=== PATIENT | female | born 1995 | race African-American/Black ===

== ENCOUNTER 2016-12-07 05:28 | Emergency (ER) | payer OTHER ==
[2016-12-07 05:39] VITALS: BP 115/72
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
[2016-12-07] MEDS ORDERED: diPHENhydraMINE PO* 50 MG PO ONE (06:24)
[2016-12-07] MEDS ORDERED: diPHENhydraMINE PO* 50 MG ONE (06:25)
== END 2016-12-07 06:30 | disposition home or self-care (01) ==
LOC: ED 05:28
DX: R10.30 Lower abdominal pain, unspecified (principal); L29.9 Pruritus, unspecified
CPT/HCPCS: 99282; A9270-GY

== ENCOUNTER 2017-01-04 14:02 | Emergency (ER) | payer OTHER ==
[2017-01-04] MEDS ORDERED: Ondansetron INJ* 2 MG/ML VIAL IV ONE (14:33)
[2017-01-04] MEDS ORDERED: Ketorolac INJ* 30 MG/ML 1 ML VIAL IV ONE (14:33)
[2017-01-04] MEDS ORDERED: NS 0.9% 1000 ML* 1,000 ML IV ONE (14:33)
[2017-01-04 14:49] LABS: Hematocrit 36 % (35-47); Hemoglobin 11.8 g/dl (12.0-16.0); Mean Corpuscular HGB Conc 33 g/dl (31-36); Mean Corpuscular Hemoglobin 29 pg (27-31); Mean Corpuscular Volume 89 fL (80-97); Mean Platelet Volume 7 um3 (7.4-10.4); Red Blood Count 4.08 10^6/ul (4.0-5.4); Red Cell Distribution Width 14 % (10.5-15); White Blood Count 7.4 10^3/ul (3.5-10.8)
--- NOTE | 2017-01-04 14:53 | ED ---
Abdominal Pain/Female - HPI Summary HPI Summary: Patient presents with epigastric pain that began this morning without provocation. She has been nauseous for a week without vomiting, or fever. Her pain is worse after meals, and is otherwise a constant dull presence. Her pain can occasionally present in the suprapubic region, and she was actually seen by her PCP for this and an UTI was ruled out. No fever, chills, diarrhea or constipation. She has had a "soft" stool. No CP, SOB, or back pain. - History of Current Complaint Chief Complaint: EDAbdPain Stated Complaint: ABD PAIN Time Seen by Provider: 01/04/17 14:09 Hx Obtained From: Patient Hx Last Menstrual Period: [id number] ?: Yes Onset/Duration: Gradual Onset Timing: Constant - with mild increases Severity Initially: Moderate Severity Currently: Severe Location: Epigastric Radiates: No Character: Sharp, Cramping Aggravating Factor(s): Food Alleviating Factor(s): Nothing Associated Signs and Symptoms: Positive: Nausea. Negative: Fever, Blood in Stool, Urinary Symptoms, Vaginal Discharge Allergies/Adverse Reactions: Allergies Allergy/AdvReac Type Severity Reaction Status Date / Time Latex Allergy Severe Hives Verified 11/24/16 13:28 Penicillins Allergy Intermediate Rash Verified 11/24/16 13:28 Sulfamethoxazole Allergy Vomiting Verified 11/24/16 13:28 w/Trimethoprim [From Bactrim] PMH/Surg Hx/FS Hx/Imm Hx Endocrine/Hematology History: Reports: Hx Anemia - CAN'T TAKE IRON IT IRRITATES HER STOMACH Denies: Hx Diabetes, Hx Thyroid Disease Cardiovascular History: Denies: Hx Congestive Heart Failure, Hx Hypertension, Hx Pacemaker/ICD Respiratory History: Reports: Hx Asthma Denies: Hx Chronic Obstructive Pulmonary Disease (COPD) GI History: Reports: Other GI Disorders - CHRONIC ABD PAIN AND BLOOD IN STOOLS X 3 MO Denies: Hx Ulcer History: Reports: Hx Kidney Infection Denies: Hx Renal Disease Musculoskeletal History: Reports: Hx Tendonitis - KIRSTEN CARPAL TUNNEL Sensory History: Denies: Hx Contacts or Glasses, Hx Hearing Aid Opthamlomology History: Denies: Hx Contacts or Glasses Psychiatric History: Reports: Hx Depression - [place] W/O MEDS Denies: Hx Panic Disorder - Surgical History Surgery Procedure, Year, and Place: tonsillectomy. ear tubes 07/18/16 Hx Anesthesia Reactions: No - Immunization History Date of Tetanus Vaccine: Unknown Date of Influenza Vaccine: None Infectious Disease History: Denies: Hx Clostridium Difficile, Hx Hepatitis, Hx Human Immunodeficiency Virus (HIV), Hx of Known/Suspected MRSA, Hx Shingles, Hx Tuberculosis, Hx Known/ Suspected VRE, Hx Known/Suspected VRSA, History Other Infectious Disease - Family History Known Family History: Positive: None, Cardiac Disease, Hypertension, Diabetes, Other - cancer - Social History Occupation: Employed Full-time Lives: With Family Alcohol Use: None Substance Use Type: Reports: None Smoking Status (MU): Never Smoked Tobacco Have You Smoked in the Last Year: No Review of Systems Negative: Fever, Chills Negative: Chest Pain Negative: Shortness Of Breath Positive: Abdominal Pain, Nausea. Negative: Vomiting, Diarrhea Negative: no symptoms reported Positive: Myalgia. Negative: Edema Negative: Headache All Other Systems Reviewed And Are Negative: Yes Physical Exam Triage Information Reviewed: Yes Vital Signs Reviewed: Yes Appearance: Positive: Well-Appearing, Pain Distress, Obese Skin: Positive: Warm, Skin Color Reflects Adequate Perfusion, Dry, Soft Head/Face: Positive: Normal Head/Face Inspection Eyes: Positive: EOMI, [place], Conjunctiva Clear ENT: Positive: Hearing grossly normal Neck: Positive: Supple, Nontender, No Lymphadenopathy Respiratory/Lung Sounds: Positive: Clear to Auscultation, Breath Sounds Present Cardiovascular: Positive: RRR Abdomen Description: Positive: Soft. Negative: Nontender - TTP epigastric region; non-tender otherwise, Distended, Guarding Bowel Sounds: Positive: Present Musculoskeletal: Negative: Edema Left, Edema Right Neurological: Positive: Sensory/Motor Intact, Alert, Oriented to Person Place, Time, NV Bundle Intact Distally, Normal Gait Psychiatric: Positive: Affect/Mood Appropriate AVPU Assessment: Alert Diagnostics - Laboratory Result Diagrams: 01/04/17 14:34 01/04/17 14:34 Lab Statement: Any lab studies that have been ordered have been reviewed, and results considered in the medical decision making process. - Radiology No standard instances Xray Interpretation: No Acute Changes Radiology Interpretation Completed By: Radiologist Abdominal Pain Fem Course/Dx - Diagnoses Differential Diagnosis: Positive: Appendicitis, Bowel Obstruction, Constipation , Hepatitis, Pancreatitis, Renal Colic Provider Diagnoses: UTI (urinary tract infection) Discharge - Discharge Plan Condition: Stable Disposition: HOME Prescriptions: Ciprofloxacin TAB* [Cipro Tab*] 250 mg PO BID #5 tab Fluconazole [Diflucan 150 MG (NF)] 150 mg PO ONCE #1 tab Phenazopyridine TAB* [Pyridium TAB*] 100 mg PO TID #5 tab Patient Education Materials: Urinary Tract Infection in Women (ED) Referrals: Mehnaz Ortega MD [Primary Care Provider] - Additional Instructions: Please follow-up with your primary care provider in 2-3 days for evaluation and to discuss your repeat urinary tract infections. Take medications as prescribed until they are completely gone. Consume a bland diet and drink extra fluids. You can use over the counter Nexium or Zantac for acid reflux. Return to the emergency department if symptoms worsen.
--- NOTE | 2017-01-04 15:04 | RAD ---
INDICATION: Epigastric pain COMPARISON: CT July 24, 2015 TECHNIQUE: A single view of the abdomen is submitted. FINDINGS: Bones: There are no acute bony findings. Soft tissues: The soft tissues appear normal. The psoas margins are sharp. Bowel gas pattern: Normal Calcifications: There are no abnormal calcifications. Other: None IMPRESSION: NEGATIVE EXAMINATION.
[2017-01-04 15:08] LABS: ALT 24 U/L (7-52); AST 26 U/L (13-39); Albumin 4.5 g/dL (3.2-5.2); Alkaline Phosphatase 57 U/L (34-104); Amylase 65 U/L (29-103); Anion Gap 4 mmol/L (2-11); BUN/Creatinine Ratio 10.3 (8-20); Blood Urea Nitrogen 9 mg/dL (6-24); C Reactive Protein 3.84 mg/L (< 5.00); CO2 Carbon Dioxide 29 mmol/L (22-32); Calcium 9.8 mg/dL (8.6-10.3); Chloride 104 mmol/L (101-111); EGFR African American 106.8 (>60); Globulin 3.4 g/dL (2-4); Glucose 83 mg/dL (70-100); Lipase 23 U/L (11.0-82.0); Potassium 3.4 mmol/L (3.5-5.0); Sodium 137 mmol/L (133-145); Total Protein 7.9 g/dL (6.4-8.9)
[2017-01-04 15:19] VITALS: BP 106/58
[2017-01-04] MEDS ORDERED: Al Hydrox/Mg Hydrox/Simet LIQ* 30 ML UDC PO ONE (15:36)
[2017-01-04] MEDS ORDERED: Hyoscyamine TAB* 0.125 MG PO ONE (15:36)
[2017-01-04] MEDS ORDERED: Lidocaine 2% VISCOUS* 15 ML UDC PO ONE (15:36)
[2017-01-04 15:50] LABS: Urine Bacteria Absent (Absent); Urine Bilirubin Negative (Negative); Urine Glucose Negative (Negative); Urine Nitrite Negative (Negative)
[2017-01-04] MEDS ORDERED: Ciprofloxacin TAB* 250 MG PO ONE (15:53)
[2017-01-04] MEDS ORDERED: Phenazopyridine TAB* 100 MG PO ONE (15:54)
== END 2017-01-04 16:26 | disposition home or self-care (01) ==
LOC: ED 14:02
DX: N39.0 Urinary tract infection, site not specified (principal); R10.13 Epigastric pain; R11.0 Nausea; M79.1 Myalgia
CPT/HCPCS: 36415; 74000; 80053; 81003; 81015; 82150; 83605; 83690; 84702; 85025; 86140; 87086; 96374; 96375; 99282; A9270-GY; J1885; J2405

== ENCOUNTER 2017-01-21 12:28 | Emergency (ER) | payer OTHER ==
[2017-01-21 12:55] VITALS: BP 120/69
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
--- NOTE | 2017-01-21 13:41 | RAD ---
HISTORY: The femur pain, injury COMPARISONS: None VIEWS: 4, Frontal, lateral, axial, and oblique views of the left knee FINDINGS: BONE DENSITY: Normal. BONES: There is no displaced fracture. JOINTS: There is no arthropathy. There is no suprapatellar joint effusion or lipohemarthrosis. ALIGNMENT: There is no dislocation. SOFT TISSUES: Unremarkable. OTHER FINDINGS: None. IMPRESSION: NO ACUTE OSSEOUS INJURY. IF SYMPTOMS PERSIST, RECOMMEND REPEAT IMAGING.
== END 2017-01-21 14:03 | disposition home or self-care (01) ==
LOC: UCEAST 12:28
DX: S83.92XA Sprain of unspecified site of left knee, initial encounter (principal); V09.9XXA Pedestrian injured in unspecified transport accident, initial encounter; Y93.9 Activity, unspecified; Y92.9 Unspecified place or not applicable; Z88.0 Allergy status to penicillin; Z88.2 Allergy status to sulfonamides
CPT/HCPCS: 99212; G0463

== ENCOUNTER 2017-02-14 12:28 | Emergency (ER) | payer OTHER ==
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
[2017-02-14] MEDS ORDERED: Ibuprofen TAB* 800 MG PO ONE (14:06)
[2017-02-14 14:31] LABS: Hematocrit 39 % (35-47); Hemoglobin 12.6 g/dl (12.0-16.0); Mean Corpuscular HGB Conc 32 g/dl (31-36); Mean Corpuscular Hemoglobin 29 pg (27-31); Mean Corpuscular Volume 89 fL (80-97); Mean Platelet Volume 8 um3 (7.4-10.4); Red Blood Count 4.37 10^6/ul (4.0-5.4); Red Cell Distribution Width 14 % (10.5-15); White Blood Count 7.3 10^3/ul (3.5-10.8)
[2017-02-14 14:49] LABS: ALT 18 U/L (7-52); AST 21 U/L (13-39); Albumin 4.6 g/dL (3.2-5.2); Alkaline Phosphatase 51 U/L (34-104); Anion Gap 8 mmol/L (2-11); BUN/Creatinine Ratio 13.9 (8-20); Blood Urea Nitrogen 11 mg/dL (6-24); CO2 Carbon Dioxide 24 mmol/L (22-32); Chloride 105 mmol/L (101-111); EGFR African American 119.3 (>60); EGFR Non-African American 92.8 (>60); Globulin 3.5 g/dL (2-4); Glucose 86 mg/dL (70-100); Potassium 3.9 mmol/L (3.5-5.0); Sodium 137 mmol/L (133-145); Total Protein 8.1 g/dL (6.4-8.9)
[2017-02-14] MEDS ORDERED: Iohexol 300* (CONTRAST) 10 ML SDV IV ONE (15:00)
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
[2017-02-14] MEDS ORDERED: oxyCODONE/Acetamin 5/325 MG* TAB PO ONE (17:11)
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
--- NOTE | 2017-02-14 19:15 | RAD ---
INDICATION: Left knee injury. TECHNIQUE: 4 views of the left knee were obtained. FINDINGS: The bones are in normal alignment. No joint effusion or fracture is seen. Joint spaces appear maintained. IMPRESSION: NO EVIDENCE FOR FRACTURE.
[2017-02-14 20:36] VITALS: BP 128/74
== END 2017-02-14 20:33 | disposition home or self-care (01) ==
LOC: ED 12:28
DX: Z04.1 Encounter for examination and observation following transport accident (principal); R10.31 Right lower quadrant pain; M25.562 Pain in left knee; M54.2 Cervicalgia; R51 Headache
CPT/HCPCS: 36415; 70450; 71260; 72125; 72141; 74177; 80053; 84702; 85025; 99283; A9270-GY; Q9967

== ENCOUNTER 2017-03-24 14:30 | Emergency (ER) | payer MEDICAID, OTHER ==
[2017-03-24 15:16] VITALS: BP 110/81
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
== END 2017-03-24 17:30 | disposition left against medical advice (07) ==
LOC: UCEAST 14:30
DX: N73.9 Female pelvic inflammatory disease, unspecified (principal); N39.0 Urinary tract infection, site not specified; Z88.0 Allergy status to penicillin
CPT/HCPCS: 81003; 84702; 87086; 87480; 87491; 87510; 87591; 87661; 99212; G0463

== ENCOUNTER 2017-03-24 18:31 | Emergency (ER) | payer MEDICAID ==
[2017-03-24 18:44] VITALS: BP 109/61
[2017-03-24 19:34] LABS: Hematocrit 35 % (35-47); Hemoglobin 11.4 g/dl (12.0-16.0); Mean Corpuscular HGB Conc 33 g/dl (31-36); Mean Corpuscular Hemoglobin 29 pg (27-31); Mean Corpuscular Volume 89 fL (80-97); Mean Platelet Volume 8 um3 (7.4-10.4); Red Blood Count 3.94 10^6/ul (4.0-5.4); Red Cell Distribution Width 15 % (10.5-15); White Blood Count 8.4 10^3/ul (3.5-10.8)
[2017-03-24 19:49] LABS: ALT 17 U/L (7-52); AST 19 U/L (13-39); Albumin 4.1 g/dL (3.2-5.2); Alkaline Phosphatase 56 U/L (34-104); Anion Gap 6 mmol/L (2-11); BUN/Creatinine Ratio 9.4 (8-20); Blood Urea Nitrogen 8 mg/dL (6-24); CO2 Carbon Dioxide 24 mmol/L (22-32); Calcium 9.4 mg/dL (8.6-10.3); Chloride 106 mmol/L (101-111); EGFR African American 108.6 (>60); EGFR Non-African American 84.4 (>60); Glucose 96 mg/dL (70-100); Potassium 3.8 mmol/L (3.5-5.0); Sodium 136 mmol/L (133-145); Total Protein 7.1 g/dL (6.4-8.9)
[2017-03-24 20:17] LABS: Urine Bacteria Absent (Absent); Urine Bilirubin Negative (Negative); Urine Glucose Negative (Negative); Urine Nitrite Negative (Negative)
[2017-03-24] MEDS ORDERED: Ketorolac INJ* 30 MG/ML 1 ML VIAL IV PUSH ONE (20:25)
[2017-03-24] MEDS ORDERED: Ketorolac INJ* 60 MG/2 ML VIAL IM ONE ×2 (20:59)
--- NOTE | 2017-03-24 21:33 | RAD ---
Indication: Evaluate for tubo-ovarian abscess. Real-time sonography of the pelvis was performed. The uterus measures 8.7 x 3.9 x 5.0 cm. Endometrial echoes are unremarkable. The right ovary measures 2.2 x 2.9 x 2.8 cm with a complex right ovarian cyst measuring up to 2.1 cm. This likely represents a hemorrhagic cyst. The left ovary measures 2.9 x 3.6 x 2.0 cm. Doppler interrogation demonstrates flow in both ovaries. IMPRESSION: Complex ovarian cyst in the right ovary likely representing a hemorrhagic cyst measuring up to 2.1 cm.
[2017-03-24] MEDS ORDERED: cefTRIAXone VIAL(*) 1,000 MG VIAL IM ONE (21:46)
[2017-03-24] MEDS ORDERED: Azithromycin TAB* 250 MG PO ONE (21:46)
[2017-03-24] MEDS ORDERED: Lidocaine 1% INJ* 10 MG/ML 30 ML SDV ONE (22:24)
--- NOTE | 2017-03-26 08:31 | ED ---
I, Garth,[place], scribed for Star Vargas MD on 03/24/17 at 1928 . Abdominal Pain/Female - HPI Summary HPI Summary: This 22 y/o female presents to ED from Urgent Care for suprapubic pain since today AM. Pt visited Urgent Care hoping to get tested for possible and UTI, and was sent to ED to r/o PID. Pelvic exam done at [facility]. Pt had inconclusive test at Urgent Care. Pt reports constant cramping pain at suprapubic region as well as decreased appetite, nausea without vomiting, dysuria, and persistent diarrhea for the last month with 6x episodes yesterday. Pt also reports hematuria and currently following up with her urologist. She was prescribed abx by PCP at [place] about 2 weeks ago. She had an unprotected sex about 9 days ago and also expresses concern about possible . LMP was on 01/30/2017. - History of Current Complaint Chief Complaint: EDUrogenitalProblems Stated Complaint: SENT FROM [facility] Time Seen by Provider: 03/24/17 18:49 Hx Obtained From: Patient, Medical Records Hx Last Menstrual Period: 01/30/17 Onset/Duration: Gradual Onset Timing: Constant Pain Intensity: 3 Pain Scale Used: 0-10 Numeric Location: Suprapubic Radiates: No Character: Dull Aggravating Factor(s): Nothing Alleviating Factor(s): Nothing Associated Signs and Symptoms: Positive: Urinary Symptoms, Decreased Appetite, Nausea. Negative: Vomiting Allergies/Adverse Reactions: Allergies Allergy/AdvReac Type Severity Reaction Status Date / Time Latex Allergy Severe Hives Verified 11/24/16 13:28 Penicillins Allergy Intermediate Rash Verified 11/24/16 13:28 Sulfamethoxazole Allergy Vomiting Verified 11/24/16 13:28 w/Trimethoprim [From Bactrim] PMH/Surg Hx/FS Hx/Imm Hx Endocrine/Hematology History: Reports: Hx Anemia - CAN'T TAKE IRON IT IRRITATES HER STOMACH Denies: Hx Diabetes, Hx Thyroid Disease Cardiovascular History: Denies: Hx Congestive Heart Failure, Hx Hypertension, Hx Pacemaker/ICD Respiratory History: Reports: Hx Asthma Denies: Hx Chronic Obstructive Pulmonary Disease (COPD) GI History: Reports: Other GI Disorders - CHRONIC ABD PAIN AND BLOOD IN STOOLS X 3 MO Denies: Hx Ulcer History: Reports: Hx Kidney Infection Denies: Hx Renal Disease Musculoskeletal History: Reports: Hx Tendonitis - KIRSTEN CARPAL TUNNEL Sensory History: Denies: Hx Contacts or Glasses, Hx Hearing Aid Opthamlomology History: Denies: Hx Contacts or Glasses Psychiatric History: Reports: Hx Depression - [place] W/O MEDS Denies: Hx Panic Disorder - Surgical History Surgery Procedure, Year, and Place: tonsillectomy. ear tubes 07/18/16 Hx Anesthesia Reactions: No - Immunization History Date of Tetanus Vaccine: Unknown Date of Influenza Vaccine: None Infectious Disease History: No Infectious Disease History: Denies: Hx Clostridium Difficile, Hx Hepatitis, Hx Human Immunodeficiency Virus (HIV), Hx of Known/Suspected MRSA, Hx Shingles, Hx Tuberculosis, Hx Known/ Suspected VRE, Hx Known/Suspected VRSA, History Other Infectious Disease, Traveled Outside the [place] in Last 30 Days - Family History Known Family History: Positive: Cardiac Disease, Hypertension, Diabetes, Other - cancer - Social History Alcohol Use: None Substance Use Type: Reports: None Smoking Status (MU): Never Smoked Tobacco Have You Smoked in the Last Year: No Review of Systems Negative: Fever, Chills Negative: Erythema Negative: Sore Throat Negative: Chest Pain Negative: Shortness Of Breath, Cough Positive: Abdominal Pain - suprapubic pain, cramping, Nausea. Negative: Vomiting Positive: dysuria, hematuria Positive: Other - RLE knee pain. Negative: Myalgia, Edema Negative: Rash Neurological: Other - negative for dizziness All Other Systems Reviewed And Are Negative: Yes Physical Exam Vital Signs On Initial Exam: Initial Vitals Temp Pulse Resp BP Pulse Ox 98.6 F 90 16 109/61 98 03/24/17 18:41 03/24/17 18:41 03/24/17 18:41 03/24/17 18:41 03/24/17 18:41 - Khushboo Coma Scale Coma Scale Total: 15 Diagnostics - Vital Signs Vital Signs Temp Pulse Resp BP Pulse Ox 03/24/17 19:01 98.6 F 90 16 109/61 98 03/24/17 18:41 98.6 F 90 16 109/61 98 - Laboratory Result Diagrams: 03/24/17 19:26 03/24/17 19:26 Lab Statement: Any lab studies that have been ordered have been reviewed, and results considered in the medical decision making process. - Additional Comments Diagnostic Additional Comments: Transvaginal US -- Complex ovarian cyst in the right ovary likely representing a hemorrhagic cyst measuring up to 2.1 cm. Abdominal Pain Fem Course/Dx - Course Course Of Treatment: This 22 y/o female presents to ED from [facility] to r/o PID. Pt initially presented to [facility] to get STD testing and chronic RLE knee pain, and subsequently referred to ED to r/o PID. She had inconclusive test at [facility]. US transvaginal indicates complex hemorrhagic right ovarian cyst. UA indicates contamination as well as 3+ RBC, WBC, and leuk. Pt is discharged with UTI, PID, and ovarian cyst with appointment coordinator referral in next 2 days. - Diagnoses Provider Diagnoses: Right ovarian cyst, PID (pelvic inflammatory disease), UTI (urinary tract infection) Discharge - Discharge Plan Condition: Stable Disposition: HOME Prescriptions: Cephalexin CAP* [Keflex CAP*] 500 mg PO QID #40 cap Patient Education Materials: Cephalexin (By mouth), Pelvic Inflammatory Disease (ED), Ovarian Cyst (ED), Urinary Tract Infection in Women (ED) Referrals: Nixon Danielle MD [Medical Doctor] - 2 Days The documentation as recorded by the Garth mcpherson Soohyun accurately reflects the service I personally performed and the decisions made by , Star Vargas MD.
== END 2017-03-24 22:29 | disposition home or self-care (01) ==
LOC: ED 18:31
DX: N83.201 Unspecified ovarian cyst, right side (principal); N73.9 Female pelvic inflammatory disease, unspecified; N39.0 Urinary tract infection, site not specified; R10.9 Unspecified abdominal pain; R31.9 Hematuria, unspecified; R30.0 Dysuria; R11.0 Nausea
CPT/HCPCS: 36415; 76830; 80053; 81003; 81015; 84702; 85025; 86850; 86900; 86901; 96372; 96374; 99283; A9270-GY; J0696; J1885; J2001

== ENCOUNTER 2017-04-09 11:00 | Emergency (ER) | payer MEDICAID, OTHER ==
[2017-04-09 11:19] VITALS: BP 121/72
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
== END 2017-04-09 12:38 | disposition home or self-care (01) ==
LOC: UCEAST 11:00
DX: S16.1XXS Strain of muscle, fascia and tendon at neck level, sequela (principal); V49.9XXS Car occupant (driver) (passenger) injured in unspecified traffic accident, sequela; J45.909 Unspecified asthma, uncomplicated; K21.9 Gastro-esophageal reflux disease without esophagitis; F32.9 Major depressive disorder, single episode, unspecified; E66.9 Obesity, unspecified; Z88.0 Allergy status to penicillin; Z88.2 Allergy status to sulfonamides; Z91.040 Latex allergy status
CPT/HCPCS: 99213; G0463

== ENCOUNTER 2017-05-28 19:07 | Emergency (ER) | payer OTHER ==
[2017-05-28 20:35] LABS: Urine Bacteria Absent (Absent); Urine Bilirubin Negative (Negative); Urine Glucose Negative (Negative); Urine Nitrite Negative (Negative)
[2017-05-28] MEDS ORDERED: metroNIDAZOLE TAB* 250 MG PO ONE (21:05)
[2017-05-28] MEDS ORDERED: Ciprofloxacin TAB* 500 MG PO ONE (21:05)
[2017-05-28 21:25] VITALS: BP 119/74
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
--- NOTE | 2017-05-29 14:20 | PN ---
Progress Note - Progress Note Date of Service: 05/29/17 Note: urine pos for chlamydia. attempted to contact pt and number not in service. sent script for azithromycin one gram to pharmacy on file. told [facility] to send letter to pt.
== END 2017-05-28 21:24 | disposition home or self-care (01) ==
LOC: ED 19:07
DX: N39.0 Urinary tract infection, site not specified (principal); N76.0 Acute vaginitis; M54.2 Cervicalgia; M54.9 Dorsalgia, unspecified
CPT/HCPCS: 81003; 81015; 87086; 87491; 87591; 99282; A9270-GY

== ENCOUNTER 2017-06-16 15:19 | Emergency (ER) | payer OTHER ==
[2017-06-16] MEDS ORDERED: NS 0.9% 1000 ML* 1,000 ML IV ONE (16:25)
[2017-06-16 16:51] VITALS: BP 125/82
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
== END 2017-06-16 17:07 | disposition short-term general hospital (02) ==
LOC: UCEAST 15:19
DX: R10.9 Unspecified abdominal pain (principal); N93.8 Other specified abnormal uterine and vaginal bleeding
CPT/HCPCS: 96360; 99213; G0463

== ENCOUNTER 2017-06-16 17:14 | Emergency (ER) | payer OTHER ==
[2017-06-16] MEDS ORDERED: Ketorolac INJ* 30 MG/ML 1 ML VIAL IV ONE (18:05)
[2017-06-16 18:11] LABS: Urine Bacteria Absent (Absent); Urine Bilirubin Negative (Negative); Urine Glucose Negative (Negative); Urine Nitrite Negative (Negative)
[2017-06-16 18:14] LABS: Hematocrit 35 % (35-47); Hemoglobin 11.1 g/dl (12.0-16.0); Mean Corpuscular HGB Conc 31 g/dl (31-36); Mean Corpuscular Hemoglobin 29 pg (27-31); Mean Corpuscular Volume 93 fL (80-97); Mean Platelet Volume 9 um3 (7.4-10.4); Red Blood Count 3.81 10^6/ul (4.0-5.4); Red Cell Distribution Width 16 % (10.5-15); White Blood Count 7.8 10^3/ul (3.5-10.8)
[2017-06-16 18:27] LABS: ALT 15 U/L (7-52); AST 19 U/L (13-39); Albumin 4.5 g/dL (3.2-5.2); Alkaline Phosphatase 45 U/L (34-104); Anion Gap 8 mmol/L (2-11); BUN/Creatinine Ratio 10.3 (8-20); Blood Urea Nitrogen 9 mg/dL (6-24); C Reactive Protein 1.41 mg/L (< 5.00); CO2 Carbon Dioxide 23 mmol/L (22-32); Calcium 9.6 mg/dL (8.6-10.3); Chloride 106 mmol/L (101-111); EGFR African American 105.7 (>60); EGFR Non-African American 82.2 (>60); Globulin 3.2 g/dL (2-4); Glucose 79 mg/dL (70-100); Lipase 22 U/L (11.0-82.0); Potassium 3.7 mmol/L (3.5-5.0); Sodium 137 mmol/L (133-145); Total Protein 7.7 g/dL (6.4-8.9)
[2017-06-16 19:01] VITALS: BP 90/60
--- NOTE | 2017-06-16 19:35 | RAD ---
Indication: Right upper quadrant pain. Real-time sonography of the right upper quadrant was performed. The liver is normal in size. No focal lesions or intrahepatic ductal dilatation is noted. The gallbladder demonstrates no gallstones, pericholecystic fluid or wall thickening. The common duct measures 3 mm. Right kidney measures 11.2 x 6.1 x 4.5 cm with no hydronephrosis. The pancreatic head, neck and proximal body are unremarkable. IMPRESSION: No evidence of cholelithiasis or biliary duct dilatation is noted.
--- NOTE | 2017-06-16 19:50 | RAD ---
Indication: Left adnexal pain. Real-time sonography of the pelvis was performed utilizing transabdominal technique. The uterus measures 8.7 x 4.4 x 4.7 cm. Endometrial echo measures 5 mm. The right ovary measures 3.4 x 2.3 x 3.8 cm. Left ovary measures 3.5 x 2.9 x 2.8 cm. Doppler interrogation demonstrates flow in both ovaries. IMPRESSION: Unremarkable pelvic ultrasound.
--- NOTE | 2017-06-16 22:22 | ED ---
Chaka Mcclain Alok, scribed for Nicholas Hernández MD on 06/16/17 at 1815 . Abdominal Pain/Female - HPI Summary HPI Summary: 22F presents to the ED sent here from [facility] for abd pain and vaginal bleeding. Pt states that while at work today at 0130 she experienced heavy vaginal bleeding with brownish discharge soaking through her clothes and on to the floor. Pt also has been experiencing abd pain described as cramping beginning at the LLQ and transitioning now to the suprapubic area. Pt also notes abd distention. Pt notes weight loss of 20 lbs in the past 3 weeks due to lack of appetite caused by nausea after eating. Pt also states her BM have been urgent immediately after eating with diarrhea at times. Pt notes dizziness off an on for the past 3 weeks. Her LMP was on 06/01/17. pt is allergic to Penicillin and Amoxicillin. - History of Current Complaint Chief Complaint: EDAbdPain Stated Complaint: ABD PAIN-SENT FROM [facility] Time Seen by Provider: 06/16/17 17:54 Hx Obtained From: Patient Hx Last Menstrual Period: 06/01/17 ended 06/08 Onset/Duration: Lasting Hours, Still Present Timing: Constant Severity Initially: Moderate Severity Currently: Moderate Pain Intensity: 10 Pain Scale Used: 0-10 Numeric Location: Discrete At: LLQ, Suprapubic Character: Cramping Aggravating Factor(s): Food Alleviating Factor(s): Nothing Associated Signs and Symptoms: Positive: Dizzy, Decreased Appetite, Vaginal Bleeding, Nausea, Diarrhea. Negative: Fever Allergies/Adverse Reactions: Allergies Allergy/AdvReac Type Severity Reaction Status Date / Time Latex Allergy Severe Hives Verified 05/28/17 19:14 Penicillins Allergy Intermediate Rash Verified 05/28/17 19:14 Sulfamethoxazole Allergy Vomiting Verified 05/28/17 19:14 w/Trimethoprim [From Bactrim] PMH/Surg Hx/FS Hx/Imm Hx Endocrine/Hematology History: Reports: Hx Anemia - CAN'T TAKE IRON IT IRRITATES HER STOMACH Denies: Hx Diabetes, Hx Thyroid Disease Cardiovascular History: Denies: Hx Congestive Heart Failure, Hx Hypertension, Hx Pacemaker/ICD Respiratory History: Reports: Hx Asthma Denies: Hx Chronic Obstructive Pulmonary Disease (COPD) GI History: Reports: Other GI Disorders - CHRONIC ABD PAIN AND BLOOD IN STOOLS X 3 MO Denies: Hx Ulcer History: Reports: Hx Kidney Infection Denies: Hx Renal Disease Musculoskeletal History: Reports: Hx Tendonitis - KIRSTEN CARPAL TUNNEL Sensory History: Denies: Hx Contacts or Glasses, Hx Hearing Aid Opthamlomology History: Denies: Hx Contacts or Glasses Psychiatric History: Reports: Hx Depression - [place] W/O MEDS Denies: Hx Panic Disorder - Surgical History Surgery Procedure, Year, and Place: tonsillectomy. ear tubes 07/18/16 Hx Anesthesia Reactions: No - Immunization History Date of Tetanus Vaccine: Unknown Date of Influenza Vaccine: None Infectious Disease History: No Infectious Disease History: Denies: Hx Clostridium Difficile, Hx Hepatitis, Hx Human Immunodeficiency Virus (HIV), Hx of Known/Suspected MRSA, Hx Shingles, Hx Tuberculosis, Hx Known/ Suspected VRE, Hx Known/Suspected VRSA, History Other Infectious Disease, Traveled Outside the in Last 30 Days - Family History Known Family History: Positive: Cardiac Disease, Hypertension, Diabetes, Other - cancer - Social History Occupation: Employed Full-time Alcohol Use: None Substance Use Type: Reports: None Smoking Status (MU): Never Smoked Tobacco Have You Smoked in the Last Year: No Review of Systems Negative: Fever Positive: Abdominal Pain, Diarrhea, Nausea, Other - Lack of appetite Neurological: Other - Dizziness All Other Systems Reviewed And Are Negative: Yes Physical Exam Triage Information Reviewed: Yes Vital Signs On Initial Exam: Initial Vitals Temp Pulse Resp BP Pulse Ox 98.1 F 80 16 122/61 100 06/16/17 17:44 06/16/17 17:44 06/16/17 17:44 06/16/17 17:44 06/16/17 17:44 Vital Signs Reviewed: Yes Appearance: Positive: Well-Appearing, No Pain Distress Skin: Positive: Warm, Skin Color Reflects Adequate Perfusion, Dry Head/Face: Positive: Normal Head/Face Inspection Eyes: Positive: Normal ENT: Positive: Normal ENT inspection Neck: Positive: Supple, Nontender Respiratory/Lung Sounds: Positive: Clear to Auscultation, Breath Sounds Present Cardiovascular: Positive: RRR Abdomen Description: Positive: Other: - Right upper quadrant tenderness Bowel Sounds: Positive: Present Musculoskeletal: Positive: Normal Neurological: Positive: Normal Psychiatric: Positive: Normal, Affect/Mood Appropriate Diagnostics - Vital Signs Vital Signs Temp Pulse Resp BP Pulse Ox 06/16/17 17:44 98.1 F 80 16 122/61 100 - Laboratory Lab Results: Lab Results 06/16/17 06/16/17 06/16/17 Range/Units 16:40 16:40 16:40 WBC 7.8 (3.5-10.8) 10^3/ul RBC 3.81 L (4.0-5.4) 10^6/ul Hgb 11.1 L (12.0-16.0) g/dl Hct 35 (35-47) % MCV 93 (80-97) fL MCH 29 (27-31) pg MCHC 31 (31-36) g/dl RDW 16 H (10.5-15) % Plt Count 272 (150-450) 10^3/ul MPV 9 (7.4-10.4) um3 Neut % (Auto) 44.7 (38-83) % Lymph % (Auto) 46.8 (25-47) % [place] % (Auto) 6.3 (1-9) % Eos % (Auto) 1.5 (0-6) % Baso % (Auto) 0.7 (0-2) % Absolute Neuts (auto) 3.5 (1.5-7.7) 10^3/ul Absolute Lymphs (auto) 3.6 (1.0-4.8) 10^3/ul Absolute Monos (auto) 0.5 (0-0.8) 10^3/ul Absolute Eos (auto) 0.1 (0-0.6) 10^3/ul Absolute Basos (auto) 0.1 (0-0.2) 10^3/ul Absolute Nucleated RBC 0.01 10^3/ul Nucleated RBC % 0.1 Sodium 137 (133-145) mmol/L Potassium 3.7 (3.5-5.0) mmol/L Chloride 106 (101-111) mmol/L Carbon Dioxide 23 (22-32) mmol/L Anion Gap 8 (2-11) mmol/L BUN 9 (6-24) mg/dL Creatinine 0.87 (0.51-0.95) mg/dL Est GFR ( Amer) 105.7 (>60) Est GFR (Non-Af Amer) 82.2 (>60) BUN/Creatinine Ratio 10.3 (8-20) Glucose 79 (70-100) mg/dL Lactic Acid (0.5-2.0) mmol/L Calcium 9.6 (8.6-10.3) mg/dL Total Bilirubin 0.30 (0.2-1.0) mg/dL AST 19 (13-39) U/L ALT 15 (7-52) U/L Alkaline Phosphatase 45 (34-104) U/L C-Reactive Protein 1.41 (< 5.00) mg/L Total Protein 7.7 (6.4-8.9) g/dL Albumin 4.5 (3.2-5.2) g/dL Globulin 3.2 (2-4) g/dL Albumin/Globulin Ratio 1.4 (1-3) Lipase 22 (11.0-82.0) U/L Beta HCG, Quant < 0.60 mIU/mL Urine Color Yellow Urine Appearance Clear Urine pH 6.0 (5-9) Ur Specific [place] 1.017 (1.010-1.030) Urine Protein Negative (Negative) Urine Ketones Negative (Negative) Urine Blood 1+ H (Negative) Urine Nitrate Negative (Negative) Urine Bilirubin Negative (Negative) Urine Urobilinogen Negative (Negative) Ur Leukocyte Esterase Negative (Negative) Urine WBC (Auto) Trace(0-5/hpf) (Absent) Urine RBC (Auto) Trace(0-2/hpf) (Absent) Ur Squamous Epith Cells Present H (Absent) Urine Bacteria Absent (Absent) Urine Glucose Negative (Negative) 06/16/17 Range/Units 16:40 WBC (3.5-10.8) 10^3/ul RBC (4.0-5.4) 10^6/ul Hgb (12.0-16.0) g/dl Hct (35-47) % MCV (80-97) fL MCH (27-31) pg MCHC (31-36) g/dl RDW (10.5-15) % Plt Count (150-450) 10^3/ul MPV (7.4-10.4) um3 Neut % (Auto) (38-83) % Lymph % (Auto) (25-47) % [place] % (Auto) (1-9) % Eos % (Auto) (0-6) % Baso % (Auto) (0-2) % Absolute Neuts (auto) (1.5-7.7) 10^3/ul Absolute Lymphs (auto) (1.0-4.8) 10^3/ul Absolute Monos (auto) (0-0.8) 10^3/ul Absolute Eos (auto) (0-0.6) 10^3/ul Absolute Basos (auto) (0-0.2) 10^3/ul Absolute Nucleated RBC 10^3/ul Nucleated RBC % Sodium (133-145) mmol/L Potassium (3.5-5.0) mmol/L Chloride (101-111) mmol/L Carbon Dioxide (22-32) mmol/L Anion Gap (2-11) mmol/L BUN (6-24) mg/dL Creatinine (0.51-0.95) mg/dL Est GFR ( Amer) (>60) Est GFR (Non-Af Amer) (>60) BUN/Creatinine Ratio (8-20) Glucose (70-100) mg/dL Lactic Acid 0.7 (0.5-2.0) mmol/L Calcium (8.6-10.3) mg/dL Total Bilirubin (0.2-1.0) mg/dL AST (13-39) U/L ALT (7-52) U/L Alkaline Phosphatase (34-104) U/L C-Reactive Protein (< 5.00) mg/L Total Protein (6.4-8.9) g/dL Albumin (3.2-5.2) g/dL Globulin (2-4) g/dL Albumin/Globulin Ratio (1-3) Lipase (11.0-82.0) U/L Beta HCG, Quant mIU/mL Urine Color Urine Appearance Urine pH (5-9) Ur Specific [place] (1.010-1.030) Urine Protein (Negative) Urine Ketones (Negative) Urine Blood (Negative) Urine Nitrate (Negative) Urine Bilirubin (Negative) Urine Urobilinogen (Negative) Ur Leukocyte Esterase (Negative) Urine WBC (Auto) (Absent) Urine RBC (Auto) (Absent) Ur Squamous Epith Cells (Absent) Urine Bacteria (Absent) Urine Glucose (Negative) Result Diagrams: 06/16/17 16:40 06/16/17 16:40 Lab Statement: Any lab studies that have been ordered have been reviewed, and results considered in the medical decision making process. - Additional Comments Diagnostic Additional Comments: Gallbladder US - IMPRESSION: No evidence of cholelithiasis or biliary duct dilatation is noted. Pelvis US - IMPRESSION: Unremarkable pelvic ultrasound. Abdominal Pain Fem Course/Dx - Course Course Of Treatment: Ms. Squires presented with the acute onset of LLQ abd pain and vaginal bleeding today. She has had a recent weight loss secondary to nausea. An U/S of her GB and pelvis was negative and her labs were normal. She left without announcing her intention while CT's were being read. - Diagnoses Provider Diagnoses: Abdominal pain, Vaginal bleeding Discharge - Discharge Plan Condition: Stable Disposition: HOME Referrals: No Primary Care Phys,NOPCP [Primary Care Provider] - The documentation as recorded by the Chaka mcpherson Alok accurately reflects the service I personally performed and the decisions made by me, Nicholas Hernández MD.
== END 2017-06-16 20:45 | disposition home or self-care (01) ==
LOC: ED 17:14
DX: R10.32 Left lower quadrant pain (principal); N93.9 Abnormal uterine and vaginal bleeding, unspecified; R42 Dizziness and giddiness; R19.7 Diarrhea, unspecified
CPT/HCPCS: 36415; 76705; 76856; 80053; 81003; 81015; 83605; 83690; 84702; 85025; 86140; 96374; 99282; J1885

== ENCOUNTER 2017-07-17 08:07 | Emergency (ER) | payer OTHER ==
--- NOTE | 2017-07-17 09:24 | UC ---
Complaint Female HPI - HPI Summary HPI Summary: 2 DAYS OF VAGINAL IRRITATION AND ITCHING, HAS FLANK PAIN AND OVERALL MALAISE. NO FEVER. HAS HAD A COUPLE OF WEEKS OF MILKY WHITE VAGINAL DISCHARGE. [facility] AND WAS DIAGNOSED WITH VAGINAL GROUP B STREP AND PUT ON CEFUROXIME. TOOK IT TWICE DAILY FOR 5 DAYS. HAS ALSO BEEN USING METROGEL FOR 2 WEEKS. STATES IT IS NOT HELPING HER SX. NO FEVER. HAD UNPROTECTED SEX 2 MONTHS AGO AND AGAIN 4 DAYS AGO. TX FOR CHLAMYDIA IN JUNE WITH LUDWIG Braswell. - History Of Current Complaint Chief Complaint: UCGU Stated Complaint: URINARY ISSUE Time Seen by Provider: 07/17/17 09:06 Hx Obtained From: Patient Hx Last Menstrual Period: 07/11/17 Onset/Duration: Gradual Onset, Lasting Days, Still Present Timing: Constant Severity Initially: Moderate Severity Currently: Moderate Pain Intensity: 9 Pain Scale Used: 0-10 Numeric Aggravating Factor(s): [place], Urination Alleviating Factor(s): Nothing Associated Signs And Symptoms: Positive: Back Pain, Vaginal Discharge. Negative : Fever, Nausea, Vomiting(# Of Episodes =) - Allergies/Home Medications Allergies/Adverse Reactions: Allergies Allergy/AdvReac Type Severity Reaction Status Date / Time Latex Allergy Severe Hives Verified 07/17/17 08:18 Penicillins Allergy Intermediate Rash Verified 07/17/17 08:18 Sulfamethoxazole Allergy Vomiting Verified 07/17/17 08:18 w/Trimethoprim [From Bactrim] PMH/Surg Hx/FS Hx/Imm Hx Respiratory History: Asthma - Surgical History Surgical History: Yes Surgery Procedure, Year, and Place: tonsillectomy. ear tubes 07/18/16 - Family History Known Family History: Positive: Cardiac Disease, Hypertension, Diabetes, Other - cancer - Social History Alcohol Use: None Substance Use Type: None Smoking Status (MU): Never Smoked Tobacco Have You Smoked in the Last Year: No - Immunization History Vaccination Up to Date: Yes Review of Systems Constitutional: Negative Respiratory: Negative Cardiovascular: Negative Gastrointestinal: Abdominal Pain Genitourinary: Dysuria, Frequency, Urgency All Other Systems Reviewed And Are Negative: Yes Physical Exam Triage Information Reviewed: Yes Appearance: Well-Appearing, No Pain Distress, Well-Nourished Vital Signs: Initial Vital Signs Temp 98.3 F 07/17/17 08:19 Pulse 86 08/16/17 08:19 Resp 18 07/17/17 08:19 BP 104/67 07/17/17 08:19 Pulse Ox 100 07/17/17 08:19 Vital Signs Reviewed: Yes Eyes: Positive: Conjunctiva Clear ENT: Positive: Hearing grossly normal Neck: Positive: Supple Respiratory: Positive: No respiratory distress, No accessory muscle use Cardiovascular: Positive: Pulses Normal Abdomen Description: Positive: Soft, CVA Tenderness (R), CVA Tenderness (L), Other: - TENDER SUPRAPUBIC. Negative: Distended, Guarding Musculoskeletal: Positive: No Edema Neurological: Positive: Alert Psychological: Positive: Age Appropriate Behavior Skin: Negative: rashes Diagnostics - Laboratory Diagnostic Studies Completed/Ordered: URINE DIP SP. GR. 1.015, 1+ LEUKS. URINE HCG NEGATIVE Complaint Female Dx - Course Course Of Treatment: PT DECLINES EMPIRIC TX FOR GC/CHLAMYDIA TODAY. PREFERS TO WAIT FOR RESULTS. ADVISED NO SEX UNTIL SX RESOLVED AND RESULTS AVAILABLE. WILL TX FOR POSSIBLE UTI. PT DECLINES HIV, SYPHILIS TESTING. ADVISED TO F/U WITH OB/ CLASSIFIER TENDER. - Differential Dx/Diagnosis Provider Diagnoses: VAGINITIS, DYSURIA Discharge - Discharge Plan Condition: Stable Disposition: HOME Prescriptions: Ciprofloxacin TAB* [Cipro 500 MG TAB*] 500 mg PO BID #10 tab Patient Education Materials: Vaginitis (ED), Dysuria (ED) Referrals: [facility] [Provider Group] - As Soon As Possible Giovani Mcqueen MD [Primary Care Provider] - If Needed Additional Instructions: SWABS TAKEN FOR VAGINITIS AND GC/CHLAMYDIA. WILL TREAT EMPIRICALLY FOR UTI WITH CIPRO. NO SEX UNTIL SYMPTOMS ARE RESOLVED. FOLLOW-UP WITH [facility] IF YOU DO NOT IMPROVE.
[2017-07-17 10:01] VITALS: BP 105/55
--- NOTE | 2017-07-18 22:06 | UC ---
Progress - Progress Note Progress Note: please call this pt and let her know that test for trichomonas is positive. she will need to start flagyl 250 mg tid x7 days sent. pt will need to have her partner recieve treatment as well. [facility] also let pt know that urine cx was negative. she can stop cipro. <Jeny Schumacher - Last Filed: 07/18/17 21:55> - Progress Note Progress Note: PT IS CURRENTLY IN [facility]. [facility] [place] ERX SENT. - PATTIE BLISS MD <Pattie Bliss - Last Filed: 07/19/17 15:27>
== END 2017-07-17 10:47 | disposition home or self-care (01) ==
LOC: UCEAST 08:07
DX: N76.0 Acute vaginitis (principal); R30.0 Dysuria; J45.909 Unspecified asthma, uncomplicated; Z88.0 Allergy status to penicillin; Z88.2 Allergy status to sulfonamides
CPT/HCPCS: 81003; 84702; 87086; 87480; 87491; 87510; 87591; 87661; 99212; G0463

== ENCOUNTER 2017-07-30 08:05 | Emergency (ER) | payer OTHER ==
[2017-07-30 08:24] VITALS: BP 100/59
--- NOTE | 2017-07-30 09:58 | UC ---
Jah Mcclain Angela, [facility] on 07/30/17 at 0911 . General HPI - HPI Summary HPI Summary: In Room Note: This pt is a 22 y/o female presenting to [facility] c/o dysuria, bladder pressure, and lower back pain x3 weeks. She notes she has had increased fatigue. Pt states having itchy brown "cottage cheese" vaginal discharge. Pt reports she always has vaginal discharge after taking antibiotics. Pt denies fever, SOB, chest pain, sore throat, ear pain. She notes only taking 4 doses of Flagyl for a positive Trichomonas as she forgot to take them. Pt is concerned for a yeast infection. She has an upcoming appointment on August 07 with an obgyn for an ovarian cyst. PMHx: anemia, yeast infection. LNMP: July 09, earlier than usual (usually is on the of every month). Pt has 1 daughter. MDs Note: Vital signs are stable, afebrile. Pt was positive for Trichomonas and was incomplete in her compliance of her Flagyl. Pt has multiple visits for vaginitis and is allergic to penicillin and Bactrim. Nurses Note: Pt states that she was seen 2 weeks ago and tested positive for Trichamonas and possible UTI. Pt states she thinks she has a yeast infection. PT states that she feels that she is . Pt states she has nausea and swollen breasts and increased fatigue since approx 07/22/17. Pt states she had unprotected sex on 07/20/17. PT also complains of low back pain that has persisted since last visit (07/17/17). Pt states she only took approx 4 doses of Flagyl she was prescribed. Pt also complains of RLQ pain intermitently since last visit. - History of Current Complaint Chief Complaint: UCGeneralIllness Stated Complaint: URINARY ISSUE Time Seen by Provider: 07/30/17 08:33 Hx Obtained From: Patient Hx Last Menstrual Period: 07/09/17 Onset/Duration: Gradual Onset, Still Present Associated Signs & Symptoms: Positive: Back Pain, Dysuria. Negative: Chest Pain , Fever - Allergy/Home Medications Allergies/Adverse Reactions: Allergies Allergy/AdvReac Type Severity Reaction Status Date / Time Latex Allergy Severe Hives Verified 07/30/17 08:24 Penicillins Allergy Intermediate Rash Verified 07/30/17 08:24 Sulfamethoxazole Allergy Vomiting Verified 07/30/17 08:24 w/Trimethoprim [From Bactrim] PMH/Surg Hx/FS Hx/Imm Hx - Additional Past Medical History Additional PMH: PMHx: anemia, yeast infections. Other Cardiovascular History: DENIES: HTN Respiratory History: Asthma - Surgical History Surgical History: Yes Surgery Procedure, Year, and Place: tonsillectomy. 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 Alcohol Use: None Substance Use Type: None Smoking Status (MU): Never Smoked Tobacco Have You Smoked in the Last Year: No - Immunization History Vaccination Up to Date: Yes Review of Systems Constitutional: Fatigue Skin: Negative Eyes: Negative ENT: Negative Respiratory: Negative Cardiovascular: Negative Genitourinary: Dysuria, Other - POSITIVE: vaginal discharge Motor: Negative Neurovascular: Negative Musculoskeletal: Other: - low back pain Neurological: Negative Psychological: Negative All Other Systems Reviewed And Are Negative: Yes Physical Exam Triage Information Reviewed: Yes Appearance: Well-Appearing, No Pain Distress, Well-Nourished Vital Signs: Initial Vital Signs Temp 98.2 F 07/30/17 08:16 Pulse 82 07/30/17 08:16 Resp 18 07/30/17 08:16 BP 100/59 07/30/17 08:16 Pulse Ox 100 07/30/17 08:16 ENT: Positive: Hearing grossly normal, Pharynx normal, TMs normal, Other: - TUBE IN RIGHT EAR, LOOKS PATENT. OTHERWISE NORMAL.. Negative: Muffled/hoarse voice Neck: Positive: Supple, No Lymphadenopathy Respiratory: Positive: Chest non-tender, Lungs clear, Normal breath sounds, No respiratory distress Cardiovascular: Positive: RRR, No Murmur Abdomen Description: Positive: Nontender, Soft Musculoskeletal: Positive: Strength Intact Neurological: Positive: Alert Psychological: Positive: Age Appropriate Behavior Skin: Negative: rashes - Additional Comments ON PELVIC EXAM, PT HAS WHITE DISCHARGE. NO FLANK PAIN. Course/Dx - Course Course Of Treatment: Medications have been included in the original chart and reviewed. UA shows 1+ urine protein, 1+ urine ketones, trace-intact of urine blood, 1+ Bilirubin, 1+ of U Leukocyte Esteras. Pt is not . On pelvic exam, PT HAD WHITE DISCHARGE. On exam, PT HAS NO FLANK PAIN. Normal BP reading and no follow-up instructions required. Patient has been given an antibiotic because of increased consistent with health history. The risks and benefits of antibiotic treatment have been discussed and patient has voiced understanding of these risks including the possibility of developing clostridium difficile enterocolitis. MDM: Pt with a complex PMHx comes in c/o bilateral low back pain and urinary tract symptoms for 3 weeks. Although her UA was equivocal, Im assuming she has a cystitis and possibly early pyelonephritis and well start her on Cipro. She was also noncompliant on Flagyl for a documented Trichomonas. Her pelvic examination showed a white discharge and she was tested for GC/ chlamydia, Trichomonas and simone. I will start her on vaginal suppository for simone and wait for the results for further treatment. An underlying problem is hemorrhagic cyst, her abd exam does not shows perineal signs and she has a shifting areas of pain. I could not elicit a consistent RLQ pain that would suggest appendicitis. However, I advised the pt if she has increased abd pain and RLQ pain she should go to the emergency department. Finally, she is complaining of fatigue and has stated a history of anemia, I caroline a CBC and CMP. We will follow up on that. The pt will also call Tricia Mracos to establish a new PCP. She has an OBGYN appointment in August. - Differential Dx - Multi-Symptom Provider Diagnoses: 1. Abdominal discomfort, unclear etiology, possibly early pyelonephritis. 2. Vaginal discharge; probable Simone. 3. Fatigue Discharge - Discharge Plan Condition: Stable Disposition: HOME Prescriptions: Ciprofloxacin TAB* [Cipro Tab*] 500 mg PO BID #20 tab Miconazole VAG.SUPP* [Monistat7*] 100 mg VAGINAL BEDTIME #7 vag.supp Patient Education Materials: Kidney Infection (ED), Abdominal Pain (ED), Fatigue (ED) Forms: *Work Release Referrals: Giovani Mcqueen MD [Primary Care Provider] - [facility] [place] [facility]ERR[facility] [Outside] Additional Instructions: WE DISCUSSED: You have a number of problems. You have been started on vaginal suppository for 7 days for your possible yeast infection. You have been tested for trich and other possible infections. Let's wait for those results for further treatment. Because of your bladder symptoms and low back pain, I'm starting you on an antibiotic to prevent kidney infection. This will need follow up. You will have your blood tested to evaluate your fatigue. Call Tricia Marcos at the hospital for new primary care. Return to work tomorrow. GO TO ED FOR ANY INCREASED ABDOMINAL PAIN OR IF PAIN CONTINUES MORE THAN 2 MORE DAYS. FOLLOW UP WITH OB-[facility] SEAT JOINER, as planned. The documentation as recorded by the Jah mcpherson Angela accurately reflects the service I personally performed and the decisions made by me, Misha Doherty MD.
[2017-07-30 12:52] LABS: Hematocrit 37 % (35-47); Hemoglobin 11.7 g/dl (12.0-16.0); Mean Corpuscular HGB Conc 32 g/dl (31-36); Mean Corpuscular Hemoglobin 29 pg (27-31); Mean Corpuscular Volume 91 fL (80-97); Mean Platelet Volume 8 um3 (7.4-10.4); Red Blood Count 4.05 10^6/ul (4.0-5.4); Red Cell Distribution Width 16 % (10.5-15); White Blood Count 6.8 10^3/ul (3.5-10.8)
[2017-07-30 14:28] LABS: Albumin 4.3 g/dL (3.2-5.2); Calcium 9.9 mg/dL (8.6-10.3); EGFR African American 113.2 (>60); Globulin 2.8 g/dL (2-4); Potassium 4.2 mmol/L (3.5-5.0); Total Bilirubin 0.5 mg/dL (0.2-1.0); Total Protein 7.1 g/dL (6.4-8.9)
--- NOTE | 2017-07-31 06:54 | UC ---
Progress - Progress Note Progress Note: July Lab results reviewed, please call patient with information and instructions: 1. White count and no fever suggests this is not an early kidney infection. STOP THE CIPRO. 2. Ana positive: CONTINUE VAGINAL SUPPOSITORY FOR A WEEK. 3. Anemia, mild: BEGIN A DAILY VITAMIN. 4. Fatigue: may be related to anemia. 5. COME IN TO [facility], TOMORROW AT 7 AM TO DISCUSS THESE RESULTS WITH ME, AND I WILL EXAMINE YOU AGAIN AND GIVE YOU ANOTHER ANTIBIOTIC FOR POSSIBLE CYSTITIS ( BLADDER INFECTION). I WILL ALSO ORDER TWO MORE LAB TESTS TOMORROW TO HELP WITH YOUR DIAGNOSIS: TSH AND SERUM b HCG. JENNIFER WONG MD
--- NOTE | 2017-07-31 17:29 | ED ---
Progress - Progress Note Progress Note: July Lab results reviewed, please call patient with information and instructions: 1. White count and no fever suggests this is not an early kidney infection. STOP THE CIPRO. 2. Simone positive: CONTINUE VAGINAL SUPPOSITORY FOR A WEEK. 3. Anemia, mild: BEGIN A DAILY VITAMIN. 4. Fatigue: may be related to anemia. 5. COME IN TO [facility] AT [facility], TOMORROW AT 7 AM TO DISCUSS THESE RESULTS WITH ME, AND I WILL EXAMINE YOU AGAIN AND GIVE YOU ANOTHER ANTIBIOTIC FOR POSSIBLE CYSTITIS ( BLADDER INFECTION). I WILL ALSO ORDER TWO MORE LAB TESTS TOMORROW TO HELP WITH YOUR DIAGNOSIS: TSH AND SERUM b HCG. JENNIFER WONG MD 07/31/17 G/C/TRICH/UCX (-). IF WORSE ER. Course/Dx - Course Course Of Treatment: Medications have been included in the original chart and reviewed. UA shows 1+ urine protein, 1+ urine ketones, trace-intact of urine blood, 1+ Bilirubin, 1+ of U Leukocyte Esteras. Pt is not . On pelvic exam, PT HAD WHITE DISCHARGE. On exam, PT HAS NO FLANK PAIN. Normal BP reading and no follow-up instructions required. Patient has been given an antibiotic because of increased consistent with health history. The risks and benefits of antibiotic treatment have been discussed and patient has voiced understanding of these risks including the possibility of developing clostridium difficile enterocolitis. MDM: Pt with a complex PMHx comes in c/o bilateral low back pain and urinary tract symptoms for 3 weeks. Although her UA was equivocal, Im assuming she has a cystitis and possibly early pyelonephritis and well start her on Cipro. She was also noncompliant on Flagyl for a documented Trichomonas. Her pelvic examination showed a white discharge and she was tested for GC/ chlamydia, Trichomonas and simone. I will start her on vaginal suppository for simone and wait for the results for further treatment. An underlying problem is hemorrhagic cyst, her abd exam does not shows perineal signs and she has a shifting areas of pain. I could not elicit a consistent RLQ pain that would suggest appendicitis. However, I advised the pt if she has increased abd pain and RLQ pain she should go to the emergency department. Finally, she is complaining of fatigue and has stated a history of anemia, I caroline a CBC and CMP. We will follow up on that. The pt will also call Tricia Marcos to establish a new PCP. She has an OBGYN appointment in August. - Diagnoses Provider Diagnoses: STD (female)
== END 2017-07-30 10:08 | disposition home or self-care (01) ==
LOC: UCEAST 08:05
DX: R10.30 Lower abdominal pain, unspecified (principal); N89.8 Other specified noninflammatory disorders of vagina; R53.83 Other fatigue; M54.5 Low back pain; Z32.02 Encounter for pregnancy test, result negative; Z88.0 Allergy status to penicillin; Z88.2 Allergy status to sulfonamides; Z91.040 Latex allergy status
CPT/HCPCS: 36415; 80053; 81003; 84702; 85025; 87077; 87086; 87480; 87491; 87510; 87591; 87661; 99212; G0463

== ENCOUNTER 2017-09-23 22:53 | Emergency (ER) | payer OTHER ==
[2017-09-24] MEDS ORDERED: NS 0.9% 1000 ML* 1,000 ML IV SCH (00:30)
[2017-09-24 00:56] LABS: Urine Bilirubin Negative (Negative); Urine Glucose Negative (Negative); Urine Nitrite Negative (Negative)
[2017-09-24 01:00] LABS: Hematocrit 33 % (35-47); Hemoglobin 10.8 g/dl (12.0-16.0); Mean Corpuscular HGB Conc 33 g/dl (31-36); Mean Corpuscular Hemoglobin 30 pg (27-31); Mean Corpuscular Volume 90 fL (80-97); Mean Platelet Volume 8 um3 (7.4-10.4); Red Blood Count 3.64 10^6/ul (4.0-5.4); Red Cell Distribution Width 16 % (10.5-15); White Blood Count 7.5 10^3/ul (3.5-10.8)
[2017-09-24 01:09] LABS: ALT 12 U/L (7-52); AST 17 U/L (13-39); Albumin 4.1 g/dL (3.2-5.2); Alkaline Phosphatase 39 U/L (34-104); Anion Gap 5 mmol/L (2-11); BUN/Creatinine Ratio 10.3 (8-20); Blood Urea Nitrogen 8 mg/dL (6-24); CO2 Carbon Dioxide 25 mmol/L (22-32); Calcium 9.6 mg/dL (8.6-10.3); Chloride 107 mmol/L (101-111); EGFR African American 119.9 (>60); EGFR Non-African American 93.2 (>60); Globulin 2.8 g/dL (2-4); Glucose 125 mg/dL (70-100); Lipase 25 U/L (11.0-82.0); Potassium 3.3 mmol/L (3.5-5.0); Sodium 137 mmol/L (133-145); Total Protein 6.9 g/dL (6.4-8.9)
[2017-09-24] MEDS ORDERED: Iohexol 300* (CONTRAST) 10 ML SDV IV ONE (02:56)
[2017-09-24] MEDS ORDERED: Potassium Chlor TAB* 20 MEQ TAB.ER PO ONE (04:00)
[2017-09-24 04:07] VITALS: BP 104/62
--- NOTE | 2017-09-24 06:34 | ED ---
Hollie Mcclain Thomas, scribed for Kirk Rashid on 09/24/17 at 0022 . Abdominal Pain/Male - HPI Summary HPI Summary: The pt is a 22 y/o F presenting to the ED c/o RLQ abd pain for the last two days. The pain is described as an ache. The pain is intermittent. The pain is rated 7/10. The pain is aggravated by palpation and is alleviated by nothing. 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 Pt additionally c/o N/V. Pt denies vaginal bleeding, vaginal discharge. The patient is accompanied by a male. 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 - male is present Onset/Duration: Lasting Days - onset of pain two days ago, Still Present Timing: Intermittent Severity Currently: Moderate Pain Intensity: 7 Pain Scale Used: 0-10 Numeric Location: Discrete At: RLQ Aggravating Factor(s): Other: - Palpation Alleviating Factor(s): Nothing Associated Signs And Symptoms: Positive: Nausea, Vomiting, Other - NEGATIVE: vaginal bleeding, vaginal discharge - Allergies/Home Medications Allergies/Adverse Reactions: Allergies Allergy/AdvReac Type Severity Reaction Status Date / Time Latex Allergy Severe Hives Verified 09/23/17 23:15 Penicillins Allergy Intermediate Rash Verified 09/23/17 23:15 Sulfamethoxazole Allergy Vomiting Verified 09/23/17 23:15 w/Trimethoprim [From Bactrim] PMH/Surg Hx/FS Hx/Imm Hx Previously Healthy: No Endocrine/Hematology History: Reports: Hx Anemia - CAN'T TAKE IRON IT IRRITATES HER STOMACH Denies: Hx Diabetes, Hx Thyroid Disease Cardiovascular History: Denies: Hx Congestive Heart Failure, Hx Hypertension, Hx Pacemaker/ICD Respiratory History: Reports: Hx Asthma Denies: Hx Chronic Obstructive Pulmonary Disease (COPD) GI History: Reports: Other GI Disorders - CHRONIC ABD PAIN AND BLOOD IN STOOLS X 3 MO Denies: Hx Ulcer History: Reports: Hx Kidney Infection Denies: Hx Renal Disease Musculoskeletal History: Reports: Hx Tendonitis - KIRSTEN CARPAL TUNNEL Sensory History: Denies: Hx Contacts or Glasses, Hx Hearing Aid Opthamlomology History: Denies: Hx Contacts or Glasses Psychiatric History: Reports: Hx Depression - [place] W/O MEDS Denies: Hx Panic Disorder - Surgical History Surgery Procedure, Year, and Place: tonsillectomy. ear tubes 07/18/16 Hx Anesthesia Reactions: No - Immunization History Date of Tetanus Vaccine: Unknown Date of Influenza Vaccine: None Infectious Disease History: No Infectious Disease History: Denies: Hx Clostridium Difficile, Hx Hepatitis, Hx Human Immunodeficiency Virus (HIV), Hx of Known/Suspected MRSA, Hx Shingles, Hx Tuberculosis, Hx Known/ Suspected VRE, Hx Known/Suspected VRSA, History Other Infectious Disease, Traveled Outside the [place] in Last 30 Days - Family History Known Family History: Positive: Cardiac Disease, Hypertension, Diabetes, Other - cancer - Social History Alcohol Use: None Hx Substance Use: No Substance Use Type: Reports: None Hx Tobacco Use: No Smoking Status (MU): Never Smoked Tobacco Have You Smoked in the Last Year: No Review of Systems Negative: Fever Positive: Abdominal Pain - RLQ, Vomiting, Nausea Negative: discharge, other - NEGATIVE: vaginal bleeding All Other Systems Reviewed And Are Negative: Yes Physical Exam - Summary Physical Exam Summary: Appearance: Well appearing, no pain distress Skin: warm, dry, reflects adequate perfusion Head/face: normal Eyes: EOMI, [place] ENT: normal Neck: supple, nontender Respiratory: CTA, breath sounds present Cardiovascular: RRR, pulses symmetrical Abdomen: soft. RLQ tenderness. Bowel: present Musculoskeletal: normal, strength/ROM intact Neuro: normal, sensory motor intact, A&Ox3 Triage Information Reviewed: Yes Vital Signs On Initial Exam: Initial Vitals Temp Pulse Resp BP Pulse Ox 97.8 F 72 16 116/77 100 09/23/17 23:12 09/23/17 23:12 09/23/17 23:12 09/23/17 23:12 09/23/17 23:12 Vital Signs Reviewed: Yes - Platinum Coma Scale Coma Scale Total: 15 Diagnostics - Vital Signs Vital Signs Temp Pulse Resp BP Pulse Ox 09/23/17 23:12 97.8 F 72 16 116/77 100 - Laboratory Lab Results: Lab Results 09/24/17 09/24/17 09/24/17 Range/Units 00:33 00:33 00:33 WBC 7.5 (3.5-10.8) 10^3/ul RBC 3.64 L (4.0-5.4) 10^6/ul Hgb 10.8 L (12.0-16.0) g/dl Hct 33 L (35-47) % MCV 90 (80-97) fL MCH 30 (27-31) pg MCHC 33 (31-36) g/dl RDW 16 H (10.5-15) % Plt Count 232 (150-450) 10^3/ul MPV 8 (7.4-10.4) um3 Neut % (Auto) 41.9 (38-83) % Lymph % (Auto) 48.9 H (25-47) % [place] % (Auto) 6.2 (1-9) % Eos % (Auto) 2.4 (0-6) % Baso % (Auto) 0.6 (0-2) % Absolute Neuts (auto) 3.2 (1.5-7.7) 10^3/ul Absolute Lymphs (auto) 3.7 (1.0-4.8) 10^3/ul Absolute Monos (auto) 0.5 (0-0.8) 10^3/ul Absolute Eos (auto) 0.2 (0-0.6) 10^3/ul Absolute Basos (auto) 0 (0-0.2) 10^3/ul Absolute Nucleated RBC 0.01 10^3/ul Nucleated RBC % 0.1 INR (Anticoag Therapy) 1.17 H (0.89-1.11) APTT 32.2 (26.0-36.3) seconds Sodium 137 (133-145) mmol/L Potassium 3.3 L (3.5-5.0) mmol/L Chloride 107 (101-111) mmol/L Carbon Dioxide 25 (22-32) mmol/L Anion Gap 5 (2-11) mmol/L BUN 8 (6-24) mg/dL Creatinine 0.78 (0.51-0.95) mg/dL Est GFR ( Amer) 119.9 (>60) Est GFR (Non-Af Amer) 93.2 (>60) BUN/Creatinine Ratio 10.3 (8-20) Glucose 125 H (70-100) mg/dL Calcium 9.6 (8.6-10.3) mg/dL Total Bilirubin 0.30 (0.2-1.0) mg/dL AST 17 (13-39) U/L ALT 12 (7-52) U/L Alkaline Phosphatase 39 (34-104) U/L Total Protein 6.9 (6.4-8.9) g/dL Albumin 4.1 (3.2-5.2) g/dL Globulin 2.8 (2-4) g/dL Albumin/Globulin Ratio 1.5 (1-3) Lipase 25 (11.0-82.0) U/L Beta HCG, Quant < 0.60 mIU/mL Urine Color Urine Appearance Urine pH (5-9) Ur Specific [place] (1.010-1.030) Urine Protein (Negative) Urine Ketones (Negative) Urine Blood (Negative) Urine Nitrate (Negative) Urine Bilirubin (Negative) Urine Urobilinogen (Negative) Ur Leukocyte Esterase (Negative) Urine Glucose (Negative) Urine Ascorbic Acid (Negative) 09/24/17 Range/Units 00:33 WBC (3.5-10.8) 10^3/ul RBC (4.0-5.4) 10^6/ul Hgb (12.0-16.0) g/dl Hct (35-47) % MCV (80-97) fL MCH (27-31) pg MCHC (31-36) g/dl RDW (10.5-15) % Plt Count (150-450) 10^3/ul MPV (7.4-10.4) um3 Neut % (Auto) (38-83) % Lymph % (Auto) (25-47) % [place] % (Auto) (1-9) % Eos % (Auto) (0-6) % Baso % (Auto) (0-2) % Absolute Neuts (auto) (1.5-7.7) 10^3/ul Absolute Lymphs (auto) (1.0-4.8) 10^3/ul Absolute Monos (auto) (0-0.8) 10^3/ul Absolute Eos (auto) (0-0.6) 10^3/ul Absolute Basos (auto) (0-0.2) 10^3/ul Absolute Nucleated RBC 10^3/ul Nucleated RBC % INR (Anticoag Therapy) (0.89-1.11) APTT (26.0-36.3) seconds Sodium (133-145) mmol/L Potassium (3.5-5.0) mmol/L Chloride (101-111) mmol/L Carbon Dioxide (22-32) mmol/L Anion Gap (2-11) mmol/L BUN (6-24) mg/dL Creatinine (0.51-0.95) mg/dL Est GFR ( Amer) (>60) Est GFR (Non-Af Amer) (>60) BUN/Creatinine Ratio (8-20) Glucose (70-100) mg/dL Calcium (8.6-10.3) mg/dL Total Bilirubin (0.2-1.0) mg/dL AST (13-39) U/L ALT (7-52) U/L Alkaline Phosphatase (34-104) U/L Total Protein (6.4-8.9) g/dL Albumin (3.2-5.2) g/dL Globulin (2-4) g/dL Albumin/Globulin Ratio (1-3) Lipase (11.0-82.0) U/L Beta HCG, Quant mIU/mL Urine Color Yellow Urine Appearance Cloudy Urine pH 6.0 (5-9) Ur Specific [place] 1.027 (1.010-1.030) Urine Protein Negative (Negative) Urine Ketones Trace H (Negative) Urine Blood Negative (Negative) Urine Nitrate Negative (Negative) Urine Bilirubin Negative (Negative) Urine Urobilinogen Negative (Negative) Ur Leukocyte Esterase Negative (Negative) Urine Glucose Negative (Negative) Urine Ascorbic Acid * H (Negative) Result Diagrams: 09/24/17 00:33 09/24/17 00:33 Lab Statement: Any lab studies that have been ordered have been reviewed, and results considered in the medical decision making process. - CT CT Abd/Pel CT Interpretation: Positive (See Comments) - Nonspecific sigmoid colitis. This is likely infectious. Correlation with history and exam is recommended. ED physician has reviewed this report and agrees. CT Interpretation Completed By: Radiologist Abdominal Pain Fem Course/Dx - Course Assessment/Plan: The pt is a 22 y/o F c/o RLQ abd pain for the last two days. Bloodwork and UA was obtained. CT shows sigmoid colitis. Patient will be discharged home with follow up by primary care. - Diagnoses Differential Diagnosis/HQI/PQRI: Appendicitis, Gall Bladder Disease, Pancreatitis, Renal Colic, Urinary Tract Infection Provider Diagnoses: Nonspecific abdominal pain Discharge - Discharge Plan Condition: Stable Disposition: HOME Prescriptions: Pantoprazole TAB (NF) [Protonix TAB (NF)] 40 mg PO DAILY #30 tab Patient Education Materials: Abdominal Pain (ED) Referrals: Giovani Mcqueen MD [Primary Care Provider] - 3 Days Additional Instructions: Follow up with your primary care provider in three days. Return to the emergency room for any new or worsening symptoms. The documentation as recorded by the Hollie mcpherson Thomas accurately reflects the service I personally performed and the decisions made by Rachid cunningham Emmanuel.
--- NOTE | 2017-09-24 08:17 | RAD ---
CLINICAL HISTORY: Right lower quadrant pain COMPARISON: February 14, 2017 TECHNIQUE: Multiple contiguous axial CT scans were obtained of the abdomen and pelvis after the administration of intravenous contrast. Coronal and sagittal multiplanar reformations are submitted for review. Oral contrast was administered. Delayed images were obtained through the abdomen and pelvis. FINDINGS: LUNG BASES: The lung bases are clear. LIVER: The liver is normal in shape, size, contour, and attenuation. BILE DUCTS: There is no intrahepatic or extrahepatic biliary dilatation. GALLBLADDER: The gallbladder is normal, without pericholecystic inflammatory change. PANCREAS: The pancreas is normal, without mass or ductal dilatation. SPLEEN: Normal in size and appearance. UPPER GI TRACT: Evaluation of the gastrointestinal tract is limited by incomplete gastric distention. The upper GI tract is unremarkable. SMALL BOWEL AND MESENTERY: The small bowel is normal in contour, course, and caliber. There is no obstruction or dilatation. COLON: There is questionable mucosal thickening of the descending sigmoid colon though this may be an artifact of incomplete distention.. There is a tubular, vermiform, hollow viscus that is blind ending, and originates from the cecum, consistent with a normal appendix. There is no periappendiceal inflammatory change. This is best seen on axial images 52 through 56. ADRENALS: Normal bilaterally. KIDNEYS: The kidneys are normal in shape, size, contour, and axis. There is no hydronephrosis or nephrolithiasis. BLADDER: The bladder is smooth in contour. PELVIC ORGANS: The uterus and adnexa are grossly normal for technique. Left ovarian cysts are noted measuring up to 1.5 cm. AORTA: The aorta is normal. IVC: Unremarkable LYMPH NODES: There is no lymphadenopathy by size criteria. ABDOMINAL WALL: There is no evidence for abdominal wall hernia. BONES AND SOFT TISSUES: Unremarkable OTHER: None IMPRESSION: 1. NORMAL APPENDIX. 2. QUESTIONABLE MUCOSAL THICKENING OF THE DISTAL COLON, THOUGH THIS MAY BE AN ARTIFACT OF INCOMPLETE DISTENTION.
== END 2017-09-24 04:21 | disposition home or self-care (01) ==
LOC: ED 22:53
DX: R10.31 Right lower quadrant pain (principal); R11.2 Nausea with vomiting, unspecified
CPT/HCPCS: 36415; 74177; 80053; 81003; 83690; 84702; 85025; 85610; 85730; 96360; 99283; A9270-GY; Q9967

== ENCOUNTER 2017-11-06 10:14 | Observation (INO) | payer OTHER ==
[2017-11-06] MEDS ORDERED: NS 0.9% 1000 ML* 1,000 ML IV ONE ×3 (10:34→17:09)
[2017-11-06] MEDS ORDERED: Ondansetron INJ* 2 MG/ML VIAL IV ONE (10:34)
[2017-11-06 11:14] LABS: Hematocrit 39 % (35-47); Hemoglobin 12.6 g/dl (12.0-16.0); Mean Corpuscular HGB Conc 32 g/dl (31-36); Mean Corpuscular Hemoglobin 29 pg (27-31); Mean Corpuscular Volume 90 fL (80-97); Mean Platelet Volume 8 um3 (7.4-10.4); Red Blood Count 4.37 10^6/ul (4.0-5.4); Red Cell Distribution Width 15 % (10.5-15); White Blood Count 11.8 10^3/ul (3.5-10.8)
[2017-11-06 11:25] LABS: Albumin 4.6 g/dL (3.2-5.2); BUN/Creatinine Ratio 12.7 (8-20); C Reactive Protein 3.49 mg/L (< 5.00); Calcium 10.5 mg/dL (8.6-10.3); EGFR African American 118.1 (>60); EGFR Non-African American 91.9 (>60); Globulin 3.4 g/dL (2-4); Magnesium 1.8 mg/dL (1.9-2.7); Potassium 4.1 mmol/L (3.5-5.0); Total Bilirubin 0.3 mg/dL (0.2-1.0)
[2017-11-06] MEDS ORDERED: Promethazine INJ(RESTRICTED)* 25 MG/ML 1 ML VIAL IV ONE (11:35)
[2017-11-06] MEDS ORDERED: Morphine INJ* 4 MG/ML 1 ML CARPUJECT IV ONE (11:36)
[2017-11-06 11:47] LABS: Mono Internal Control QC Line Present
[2017-11-06 11:48] LABS: Manual Entry Verification GRE060
[2017-11-06] MEDS ORDERED: LORazepam INJ* 2 MG/ML 1 ML VIAL IV PUSH ONE (11:57)
--- NOTE | 2017-11-06 12:42 | ED ---
Abdominal Pain/Female - HPI Summary HPI Summary: Pt here w/ N/V/D last night. Has epigastric pain and nausea here today making interview difficult. Reports she's exhausted from not sleeping last night. Had URI preceeding sx w/ ST - had rapid strep test at PCP's office earlier this week - negative per pt. She has lingering nasal congestion, dry cough, otalgia. She also admits to vaginal d/c for 3 weeks now. She reports she's had a pelvic exam about 1 week ago and dx'd w/ yeast infection - denies treatment - does not elaborate on sx currently when asked about irritation, itching, etc. Also reports she was checked for a UTI and this was negative. LMP October. No sick contacts to report and denies new foods/water/etc. - History of Current Complaint Chief Complaint: EDAbdPain Stated Complaint: NAUSEA/VOMITING Time Seen by Provider: 11/06/17 10:25 Hx Obtained From: Patient Hx Last Menstrual Period: 07/09/17 Pain Intensity: 10 Allergies/Adverse Reactions: Allergies Allergy/AdvReac Type Severity Reaction Status Date / Time Latex Allergy Severe Hives Verified 10/16/17 15:21 Penicillins Allergy Intermediate Rash Verified 10/16/17 15:21 Sulfamethoxazole Allergy Vomiting Verified 10/16/17 15:21 w/Trimethoprim [From Bactrim] PMH/Surg Hx/FS Hx/Imm Hx Previously Healthy: Yes Endocrine/Hematology History: Reports: Hx Anemia - CAN'T TAKE IRON IT IRRITATES HER STOMACH Denies: Hx Diabetes, Hx Thyroid Disease, Autoimmune Disease Cardiovascular History: Denies: Hx Congestive Heart Failure, Hx Hypertension, Hx Pacemaker/ICD Respiratory History: Reports: Hx Asthma Denies: Hx Chronic Obstructive Pulmonary Disease (COPD) GI History: Reports: Other GI Disorders - CHRONIC ABD PAIN AND BLOOD IN STOOLS X 3 MO Denies: Hx Ulcer History: Reports: Hx Kidney Infection Denies: Hx Renal Disease Musculoskeletal History: Reports: Hx Tendonitis - KIRSTEN CARPAL TUNNEL Sensory History: Denies: Hx Contacts or Glasses, Hx Hearing Aid Opthamlomology History: Denies: Hx Contacts or Glasses Psychiatric History: Reports: Hx Depression - [place] W/O MEDS Denies: Hx Panic Disorder - Surgical History Surgery Procedure, Year, and Place: tonsillectomy. ear tubes 07/18/16 Hx Anesthesia Reactions: No - Immunization History Date of Tetanus Vaccine: Unknown Date of Influenza Vaccine: None Infectious Disease History: No Infectious Disease History: Denies: Hx Clostridium Difficile, Hx Hepatitis, Hx Human Immunodeficiency Virus (HIV), Hx of Known/Suspected MRSA, Hx Shingles, Hx Tuberculosis, Hx Known/ Suspected VRE, Hx Known/Suspected VRSA, History Other Infectious Disease, Traveled Outside the [place] in Last 30 Days - Family History Known Family History: Positive: Cardiac Disease, Hypertension, Diabetes, Other - cancer - Social History Lives: With Family Alcohol Use: None Hx Substance Use: No Substance Use Type: Reports: None Hx Tobacco Use: No Smoking Status (MU): Never Smoked Tobacco Have You Smoked in the Last Year: No Review of Systems Constitutional: Other - "i feel cold now" Positive: Fatigue. Negative: Fever, Chills Eyes: Negative Positive: Sore Throat, Ear Ache, Nasal Discharge Cardiovascular: Negative Negative: Palpitations, Chest Pain Positive: Cough. Negative: Shortness Of Breath Positive: Abdominal Pain, Vomiting, Diarrhea, Nausea Positive: see HPI Musculoskeletal: Negative Skin: Negative Neurological: Negative Positive: Anxious All Other Systems Reviewed And Are Negative: Yes Physical Exam Triage Information Reviewed: Yes Vital Signs On Initial Exam: Initial Vitals Temp Pulse Resp BP Pulse Ox 97.9 F 90 20 132/72 100 11/06/17 10:24 11/06/17 10:24 11/06/17 10:24 11/06/17 10:24 11/06/17 10:24 Vital Signs Reviewed: Yes Appearance: Positive: Well-Nourished, Pain Distress - moderate - appears to be having a difficult time tolerating her nausea; appears fatigued Skin: Positive: Warm, Dry Head/Face: Positive: Normal Head/Face Inspection Eyes: Positive: Normal, EOMI, MONTS[place]AT, Conjunctiva Clear. Negative: Conjunctiva Inflammed, Discharge ENT: Positive: Normal ENT inspection, Hearing grossly normal, Pharynx normal - mucosa moist, Nasal congestion, TMs normal. Negative: Nasal drainage, Trismus, Muffled voice Neck: Positive: Supple, Nontender, No Lymphadenopathy Respiratory/Lung Sounds: Positive: Clear to Auscultation, Breath Sounds Present. Negative: Rales, Rhonchi, Stridor, Wheezes Cardiovascular: Positive: Normal, RRR, S1, S2. Negative: Murmur, Rub Abdomen Description: Positive: No Organomegaly, Soft, Other: - epigastric TTP and mild LUQ TTP - no rebounding Pelvic Exam: Positive: other - deferred until pain/nausea better controlled Musculoskeletal: Positive: Normal, Strength/ROM Intact Neurological: Positive: Normal, Sensory/Motor Intact, Alert, Oriented to Person Place, Time, CN Intact II-III Psychiatric: Positive: Anxious - [place] Coma Scale Coma Scale Total: 15 Diagnostics - Vital Signs Vital Signs Temp Pulse Resp BP Pulse Ox 11/06/17 12:00 86 121/63 100 11/06/17 11:53 103/70 11/06/17 11:48 88 98 11/06/17 11:39 83 96 11/06/17 11:37 115/67 11/06/17 10:24 97.9 F 90 20 132/72 100 - Laboratory Lab Results: Lab Results 11/06/17 11/06/17 11/06/17 Range/Units 10:45 10:45 10:45 WBC 11.8 H (3.5-10.8) 10^3/ul RBC 4.37 (4.0-5.4) 10^6/ul Hgb 12.6 (12.0-16.0) g/dl Hct 39 (35-47) % MCV 90 (80-97) fL MCH 29 (27-31) pg MCHC 32 (31-36) g/dl RDW 15 (10.5-15) % Plt Count 281 (150-450) 10^3/ul MPV 8 (7.4-10.4) um3 Neut % (Auto) 87.9 H (38-83) % Lymph % (Auto) 10.1 L (25-47) % [place] % (Auto) 1.5 (1-9) % Eos % (Auto) 0.1 (0-6) % Baso % (Auto) 0.4 (0-2) % Absolute Neuts (auto) 10.4 H (1.5-7.7) 10^3/ul Absolute Lymphs (auto) 1.2 (1.0-4.8) 10^3/ul Absolute Monos (auto) 0.2 (0-0.8) 10^3/ul Absolute Eos (auto) 0 (0-0.6) 10^3/ul Absolute Basos (auto) 0 (0-0.2) 10^3/ul Absolute Nucleated RBC 0.01 10^3/ul Nucleated RBC % 0 Sodium 136 (133-145) mmol/L Potassium 4.1 (3.5-5.0) mmol/L Chloride 107 (101-111) mmol/L Carbon Dioxide 19 L (22-32) mmol/L Anion Gap 10 (2-11) mmol/L BUN 10 (6-24) mg/dL Creatinine 0.79 (0.51-0.95) mg/dL Est GFR ( Amer) 118.1 (>60) Est GFR (Non-Af Amer) 91.9 (>60) BUN/Creatinine Ratio 12.7 (8-20) Glucose 135 H (70-100) mg/dL Lactic Acid 2.1 H* (0.5-2.0) mmol/L Calcium 10.5 H (8.6-10.3) mg/dL Magnesium 1.8 L (1.9-2.7) mg/dL Total Bilirubin 0.30 (0.2-1.0) mg/dL AST 19 (13-39) U/L ALT 14 (7-52) U/L Alkaline Phosphatase 51 (34-104) U/L C-Reactive Protein 3.49 (< 5.00) mg/L Total Protein 8.0 (6.4-8.9) g/dL Albumin 4.6 (3.2-5.2) g/dL Globulin 3.4 (2-4) g/dL Albumin/Globulin Ratio 1.4 (1-3) Amylase 73 (29-103) U/L Lipase 13 (11.0-82.0) U/L Beta HCG, Quant 5.54 mIU/mL Monoscreen Negative (Negative) Influenza A (Rapid) (Negative) Influenza B (Rapid) (Negative) 11/06/17 Range/Units 11:48 WBC (3.5-10.8) 10^3/ul RBC (4.0-5.4) 10^6/ul Hgb (12.0-16.0) g/dl Hct (35-47) % MCV (80-97) fL MCH (27-31) pg MCHC (31-36) g/dl RDW (10.5-15) % Plt Count (150-450) 10^3/ul MPV (7.4-10.4) um3 Neut % (Auto) (38-83) % Lymph % (Auto) (25-47) % [place] % (Auto) (1-9) % Eos % (Auto) (0-6) % Baso % (Auto) (0-2) % Absolute Neuts (auto) (1.5-7.7) 10^3/ul Absolute Lymphs (auto) (1.0-4.8) 10^3/ul Absolute Monos (auto) (0-0.8) 10^3/ul Absolute Eos (auto) (0-0.6) 10^3/ul Absolute Basos (auto) (0-0.2) 10^3/ul Absolute Nucleated RBC 10^3/ul Nucleated RBC % Sodium (133-145) mmol/L Potassium (3.5-5.0) mmol/L Chloride (101-111) mmol/L Carbon Dioxide (22-32) mmol/L Anion Gap (2-11) mmol/L BUN (6-24) mg/dL Creatinine (0.51-0.95) mg/dL Est GFR ( Amer) (>60) Est GFR (Non-Af Amer) (>60) BUN/Creatinine Ratio (8-20) Glucose (70-100) mg/dL Lactic Acid (0.5-2.0) mmol/L Calcium (8.6-10.3) mg/dL Magnesium (1.9-2.7) mg/dL Total Bilirubin (0.2-1.0) mg/dL AST (13-39) U/L ALT (7-52) U/L Alkaline Phosphatase (34-104) U/L C-Reactive Protein (< 5.00) mg/L Total Protein (6.4-8.9) g/dL Albumin (3.2-5.2) g/dL Globulin (2-4) g/dL Albumin/Globulin Ratio (1-3) Amylase (29-103) U/L Lipase (11.0-82.0) U/L Beta HCG, Quant mIU/mL Monoscreen (Negative) Influenza A (Rapid) Negative (Negative) Influenza B (Rapid) Negative (Negative) Result Diagrams: 11/06/17 10:45 11/06/17 10:45 Lab Statement: Any lab studies that have been ordered have been reviewed, and results considered in the medical decision making process. Abdominal Pain Fem Course/Dx - Course Course Of Treatment: Pt presents w/ acute N/V/D and epigastric ab pain + URI sx. Initially trialed zofran 8mg for nausea w/o relief per pt. Then provided morphine 4mg IV as pt reported 9/10 pain. Ativan was also ordered for nausea however pt had pain relief and was resting comfortably after IV morphine alone so ativan was held. Her labs are remarkable for lactic 2.1 so 2 L NS were ordered and repeat lactic ordered to reasses. Mag slightly low (does not require replacement at this time) otherwise, electrolytes appear intact. Her vitals are not indicative of sepsis. Suspect this is viral gastroenteritis and/ or PID. Pt signed out to Shanelle Palacios PA-C pending pelvic exam as pt reported h/ o yeast infection dx w/o tx. If ab pain persists despite normal pelvic exam, she may be a candidate for imaging. - Diagnoses Provider Diagnoses: Nausea vomiting and diarrhea, Epigastric abdominal pain Discharge - Discharge Plan Condition: Stable Disposition: OTHER Discharge Disposition Comment: signed out
[2017-11-06 13:11] LABS: Urine Bacteria 1+ (Absent); Urine Bilirubin Negative (Negative); Urine Glucose Negative (Negative); Urine Nitrite Negative (Negative)
[2017-11-06] MEDS ORDERED: Morphine INJ* 4 MG/ML 1 ML CARPUJECT ONE (15:11)
[2017-11-06] MEDS: Morphine INJ* 4 MG/ML 1 ML CARPUJECT IV ONE ×2 (15:30→18:00)
--- NOTE | 2017-11-06 15:55 | PN ---
Progress Note - Progress Note Date of Service: 11/06/17 Note: Signed out to me by Elza Cali PA-C pending further results. HPI by Elza Cali PA-C: Pt here w/ N/V/D last night. Has epigastric pain and nausea here today making interview difficult. Reports she's exhausted from not sleeping last night. Had URI preceeding sx w/ ST - had rapid strep test at PCP's office earlier this week - negative per pt. She has lingering nasal congestion, dry cough, otalgia. She also admits to vaginal d/c for 3 weeks now. She reports she's had a pelvic exam about 1 week ago and dx'd w/ yeast infection - denies treatment - does not elaborate on sx currently when asked about irritation, itching, etc. Also reports she was checked for a UTI and this was negative. LMP October. No sick contacts to report and denies new foods/water/etc. ROS: Constitutional: The patient denies fever, RICKS. HEENT: Head: The patient denies headaches or dizziness. Cardiovascular: The patient denies chest pain, palpitations, syncope, night cramps, or orthostasis. Respiratory: The patient denies cough. Gastrointestinal: The patient denies odynophagia, dysphagia, hematemesis, melenemesis. Notes to LUQ and epigastric pain worse with vomiting. +vomiting and + nausea. Denies constipation or diarrhea. Genitourinary: Patient denies dysuria, hematuria, or pyuria. Patient denies back pain. Endorses vaginal discharge which is moderate in amount and described as thick with no obvious color, denies vaginal bleeding. Denies other urinary symptoms. Endocrine: The patient denies polydipsia, polyuria, or polyphagia. Muscles: The patient denies myalgia, strain or weakness. Joints: The patient denies arthralgia and/or arthritis. Neurologic: The patient denies headache. Appearance: WDW, comfortable, pleasant, alert Skin: Soft dry skin, no lesions. Nailbeds pink with no cyanosis or clubbing. No petechia noted. Eyes: [place], EOMI, Conjunctiva pink with no redness or exudates. Mouth: Dentition without lesions. Moist mucosa Neck: Full range of motion. Palpable thyroid. Trachea at midline. No lymphadenopathy. Pulm: Chest symmetrical expansion. No deformities on posterior chest wall. Lungs clear to auscultation and percussion, without adventitious sounds. CV: No JVD. No deformities on anterior chest wall. Heart sounds. RRR, Normal S1 and single S2. No S3, S4, rubs, or murmurs. Carotids 2+ bilaterally without bruits. . exam reveals (-) chandelier sign. No vesicles or lesions present. The external genitalia is without lesions. Introitus is normal, vaginal rodriguez pink and moist without lesions or evidence of trauma. There is no cervical motion tenderness and the adnexa are without masses. There is no abnormal discharge from the cervix. GI: Bowel sounds WNL in all 4 quadrants. No pain on deep palpation of all 4 quadrants. Negative will's, negative obturator. Psoas not performed. No pain over mcburney's point. Pain on deep palpation to the the LUQ. Musculoskeletal: Flexion and extension of neck without limitations. ROM WNL in all extremities. No deformities noted. Pulses full and equal. Neuro: Motor strength is 5/5 in upper and lower extremities bilaterally. A&OX3 Psych: Logical, coherent PELVIC EXAM PERFORMED BY MYSELF, MARIA D LUNA PA-C exam reveals (-) chandelier sign. No vesicles or lesions present. The external genitalia is without lesions. Introitus is normal, vaginal rodriguez pink and moist without lesions or evidence of trauma. There is no cervical motion tenderness and the adnexa are without masses. There is no abnormal discharge from the cervix. Patient sent to US d/t an indeterminate HCG of 5.5. The uterus measures 7.6 x 3.2 x 5.3 cm. Calcified structure in the cervix measures 12 x 8 x 13 mm. Endometrial echo measures 7 mm. No evidence of intrauterine is noted. Right ovary measures 4.0 x 3.2 x 2.0 cm. Left ovary measures 3.6 x 1.1 x 3.1 cm. IMPRESSION: NO ADNEXAL MASSES ARE IDENTIFIED. Discussed the case with Dr. Boles who agrees to see the patient to assess for admission. Recommended Tigan 200mg IM for nausea. Given in ED. Discussed the plan with the patient who is concerned about being discharged with N/V. Rogleio Richards NP to see patient and has had concerns with patients history of multiple sexual partners over time and history of PID. She is admitted for observation.
--- NOTE | 2017-11-06 16:55 | RAD ---
Indication: Unknown . Real-time sonography of the was performed. The uterus measures 7.6 x 3.2 x 5.3 cm. Calcified structure in the cervix measures 12 x 8 x 13 mm. Endometrial echo measures 7 mm. No evidence of intrauterine is noted. Right ovary measures 4.0 x 3.2 x 2.0 cm. Left ovary measures 3.6 x 1.1 x 3.1 cm. IMPRESSION: NO ADNEXAL MASSES ARE IDENTIFIED.
[2017-11-06] MEDS ORDERED: Metoclopramide IV* 5 MG/ML 2 ML VIAL IV ONE (17:49)
[2017-11-06] MEDS ORDERED: Trimethobenzamide IM* 100 MG/ML 2 ml VIAL IM ONE (18:02)
[2017-11-06] MEDS ORDERED: Ondansetron INJ* 2 MG/ML VIAL IV PRN (18:36)
[2017-11-06] MEDS ORDERED: Acetaminophen TAB* 325 MG PO PRN (18:36)
[2017-11-06] MEDS ORDERED: PROCHLORPERAZINE INJ 5 MG/ML 2 ML VIAL IV PRN (18:36)
[2017-11-06] MEDS ORDERED: NS 0.9% 1000 ML* 1,000 ML IV SCH (18:45)
[2017-11-06] MEDS ORDERED: Albuterol 2.5 MG/3 ML NEB.SOL* (0.083%) INH PRN (18:47)
[2017-11-06] MEDS ORDERED: Magnesium Sulfate 2 GM IV* 2 GM/50 ML BAG IVPB ONE (18:49)
[2017-11-06] MEDS ORDERED: Pantoprazole IV* 40 MG IV SCH (19:00)
[2017-11-06] MEDS ORDERED: cefTRIAXone VIAL(*) 1,000 MG in D5W 50 ML BAG* 50 ML IVPB SCH (20:00)
--- NOTE | 2017-11-06 20:33 | HP ---
CC: Dr. Mcqueen * HISTORY AND PHYSICAL: DATE OF ADMISSION: 11/06/17 PRIMARY CARE PROVIDER: Dr. Mcqueen. ATTENDING PHYSICIAN WHILE IN THE HOSPITAL: Dr. Kirti Boles * (report dictated by Juliana Richards NP). CHIEF COMPLAINT: 1. Nausea. 2. Diarrhea. HISTORY OF PRESENT ILLNESS: Ms. Squires is a 22-year-old female patient, she carries a history of PID in the past, asthma, GERD, and history of pyelonephritis. She comes in today stating that 2 weeks ago, she went to her PCP , she was having vaginal discharge, itching, thought maybe she had another yeast infection. She primarily was prescribed Diflucan, which she never picked it up because consequently 2 days later, she started having ear discomfort, ear pain. She had pain, sore throat, cough, upper respiratory symptoms. She saw her primary, there was concern for an ear infection, she was started on clindamycin. She states she still has some discharge now and still has pain in one ear, but otherwise she says it is feeling better, there have been no fevers or chills. She came in to our ER today, because she last night developed onset of vomiting and diarrhea. She vomited about 6 or 7 times, had 6 to 7 liquid bowel movements. She has been on clindamycin. She says that she just has been not been feeling well. She is admitting to left lower quadrant abdominal pain, but she does have history of chronic abdominal pain. She says when she vomits, she does get pain, particularly in the epigastric area. She denied having any chest discomfort, only when she vomits that she is having some discomfort in her chest and in her epigastric area. She had no fevers, there has been no more coughing or shortness of breath. She was concerned because of the worsening symptoms. She came into the ED, she was given several rounds of antiemetics to no avail and because of this, we were asked to evaluate for admission. PAST MEDICAL HISTORY: Significant for: 1. PID. 2. Asthma. 3. GERD. 4. Pyelonephritis. PAST SURGICAL HISTORY: She has had tonsillectomy. MEDICATIONS: Home meds according to her list include: 1. Ibuprofen 800 mg p.o. every 6 hours as needed. 2. Vaginal cream, Lotrimin 1 application topically at bedtime. 3. Protonix 40 mg at bedtime. 4. Folic acid 1 mg p.o. daily. 5. Cymbalta 30 mg daily. 6. Clindamycin 300 mg p.o. t.i.d. ALLERGIES TO MEDICATIONS: Include LATEX, PENICILLIN, and BACTRIM. FAMILY HISTORY: Mother has a history of chronic abdominal pain and history of hypertension. Father has a history of hypertension. SOCIAL HISTORY: The patient denies smoking. She denies drinking. She does not use any recreational drugs. Surrogate decision maker is her mother. REVIEW OF SYSTEMS: There is no documented fever. She denied having any significant weight change. There was no double vision. There was some ear discharge. There was rhinorrhea. There is no sore throat now. She did admit to having no shortness of breath, chest pain with vomiting, no chest pressure. No dysuria. There was abdominal discomfort, nausea, and vomiting. It was also noted there was no dysuria or frequency. Review of 14 systems was completed, all others negative. PHYSICAL EXAMINATION GENERAL: At this time, Ms. Squires is a 22-year-old female patient. She is morbidly obese. She is sitting in the ED stretcher. She does not appear to be in any acute distress. VITAL SIGNS: Blood pressure 104/66, pulse 93, respirations 18, O2 sat 97%, temperature 97.9. HEENT: Head atraumatic, normocephalic. Eyes: EOMs intact. Sclerae anicteric , not pale. Throat: Oral mucosa appears to be dry. No oropharyngeal erythema. NECK: Supple. LUNGS: Clear to auscultation bilaterally. No wheezes, rales, or rhonchi. HEART: S1, S2. Regular rate and rhythm. No murmurs, rubs, or gallops. ABDOMEN: Soft, it was flat. There was tenderness in the left lower quadrant, but otherwise flat. Bowel sounds were heard in all 4 quadrants. EXTREMITIES: Pulses were 2+ throughout. She is moving all 4 extremities with 5 /5 strength. NEUROLOGIC: She is awake, alert, oriented x3. Tongue is midline. Rn Lactation equal. No focal deficits. SKIN: Intact. DIAGNOSTIC STUDIES/LAB DATA: WBC 11.8, RBC of 4.27, hemoglobin 12.6, hematocrit 39, platelet count 281. Sodium 136; potassium 4.1; chloride 106; bicarb 19; BUN 10; creatinine 0.79; glucose 135; lactate 2.1, repeat 1.2; calcium 10.5; mag 1.8. Total bili 0.3, AST 19, ALT 14, alk phos . CRP 3.49. Albumin of 4.6, lipase 13, amylase 73. Beta HCG 5.54. Urinalysis showed 1+ protein, 2+ ketones, 2+ rbc's, 1+ bacteria. She did have a Monospot, was negative and flu swab was negative. Transvaginal ultrasound: No masses are identified. Old medical records are reviewed. ASSESSMENT AND PLAN: Ms. Squires is a 22-year-old female patient coming into the ED today with complaints of nausea and vomiting. In addition to this, right lower quadrant abdominal discomfort. She will be admitted under observation status for: 1. Nausea and vomiting with abdominal pain. At this point, it does sound like she may have gastroenteritis. I am not going to image her at this point unless she spikes a fever or the abdominal exam changes. She has had imaging in the past. I would like to avoid radiation to her if possible. She just had some CT scan done in January of this year and she had a CT of the abdomen and pelvis that was done in September of this year. She does have a mild urinary tract infection, we will put her on Rocephin empirically. We will hydrate her. I will give her antiemetics and start on clear liquid diet and we will follow her closely. 2. History of pelvic inflammatory disease. It does not appear to be an active issue at this point. 3. Gastroesophageal reflux disease. I have ordered PPI therapy. 4. History of pyelonephritis. Again, not an active issue. 5. Asthma. Continue p.r.n. nebs. 6. DVT prophylaxis. I have ordered SCDs. 7. Fluids, electrolytes, and nutrition. She can have a clear liquid diet. 8. Code status. Full code. TIME SPENT: On the admission was approximately 60 minutes, greater than half the time was spent [id number] with the patient obtaining my history and physical, other half of the time was spent going over the plan of care with the patient and implementing plan of care. I did discuss the plan of care with my attending, Dr. Boles; she is in agreement. JULIANA RICHARDS, SOLAR ELECTRIC/PHOTOVOLTAIC INSTALLER [id number]/[facility] #: [id number] [facility] HOSPITALBarb
[2017-11-06] MEDS ORDERED: Clindamycin Cap(NF) 300 MG CAP PO SCH (21:00)
[2017-11-07 06:47] LABS: Hematocrit 33 % (35-47); Hemoglobin 10.9 g/dl (12.0-16.0); Mean Corpuscular HGB Conc 33 g/dl (31-36); Mean Corpuscular Hemoglobin 30 pg (27-31); Mean Corpuscular Volume 90 fL (80-97); Mean Platelet Volume 7 um3 (7.4-10.4); Red Blood Count 3.68 10^6/ul (4.0-5.4); Red Cell Distribution Width 16 % (10.5-15); White Blood Count 10.7 10^3/ul (3.5-10.8)
[2017-11-07 07:45] LABS: BUN/Creatinine Ratio 9.6 (8-20); Calcium 8.9 mg/dL (8.6-10.3); EGFR African American 129.4 (>60); EGFR Non-African American 100.6 (>60); Potassium 3.5 mmol/L (3.5-5.0)
[2017-11-07] MEDS ORDERED: Folic Acid TAB* 1 MG PO SCH (09:00)
[2017-11-07 10:07] VITALS: BP 107/65
--- NOTE | 2017-11-07 10:13 | PN ---
Subjective Date of Service: 11/07/17 Interval History: Pt is feeling better today. She states her abdomen is sore but she thinks it is from all the vomiting that she was doing. She states her appetite is still reduced. She thinks she can manage at home but she does request to speak to a social work job titles prior to going home. Objective Active Medications: Acetaminophen (Tylenol Tab*) 650 mg PO Q4H PRN PRN Reason: FEVER/PAIN Albuterol (Ventolin 2.5 Mg/3 Ml Neb.Sujata*) 2.5 mg INH Q2H PRN PRN Reason: SOB/WHEEZING Duloxetine HCl (Cymbalta Cap*) 30 mg PO DAILY [facility] Folic Acid (Folvite Tab*) 1 mg PO DAILY [facility] Sodium Chloride (Ns 0.9% 1000 Ml*) 1,000 mls @ 150 mls/hr IV PER RATE [facility] Last Admin: 11/07/17 03:17 Dose: 150 mls/hr Ceftriaxone Sodium 1,000 mg/ (Dextrose) 50 mls @ 200 mls/hr IVPB Q24H [facility] Last Admin: 11/06/17 20:54 Dose: 200 mls/hr Ondansetron HCl (Zofran Inj*) 4 mg IV Q6H PRN PRN Reason: NAUSEA Pantoprazole Sodium (Protonix Iv*) 40 mg IV 1800 [facility] Last Admin: 11/06/17 20:25 Dose: 40 mg Prochlorperazine Edisylate (Compazine Inj*) 5 mg IV Q6H PRN PRN Reason: NAUSEA/VOMITING Vital Signs - 8 hr 11/07/17 11/07/17 03:13 10:04 Temperature 98.4 F 98.2 F Pulse Rate 90 89 Respiratory 17 Rate Blood Pressure 112/46 107/65 (mmHg) O2 Sat by Pulse 99 100 Oximetry Oxygen Devices in Use Now: None Appearance: Young female lying in bed, NAD Eyes: No Scleral Icterus Ears/Nose/Mouth/Throat: Mucous Membranes Moist Respiratory: Symmetrical Chest Expansion and Respiratory Effort, Clear to Auscultation Cardiovascular: NL Sounds; No Murmurs; No JVD, RRR Abdominal: - - BS+ soft, ND, mildly tender to palpation Extremities: No Clubbing, Cyanosis Skin: No Rash or Ulcers, No Nodules or Sclerosis Neurological: Alert and Oriented x 3 Result Diagrams: 11/07/17 06:37 11/07/17 06:37 Additional Lab and Data: Lab Results 11/06/17 11/06/17 11/06/17 Range/Units 10:45 10:45 10:45 WBC 11.8 H (3.5-10.8) 10^3/ul RBC 4.37 (4.0-5.4) 10^6/ul Hgb 12.6 (12.0-16.0) g/dl Hct 39 (35-47) % MCV 90 (80-97) fL MCH 29 (27-31) pg MCHC 32 (31-36) g/dl RDW 15 (10.5-15) % Plt Count 281 (150-450) 10^3/ul MPV 8 (7.4-10.4) um3 Neut % (Auto) 87.9 H (38-83) % Lymph % (Auto) 10.1 L (25-47) % Geary % (Auto) 1.5 (1-9) % Eos % (Auto) 0.1 (0-6) % Baso % (Auto) 0.4 (0-2) % Absolute Neuts (auto) 10.4 H (1.5-7.7) 10^3/ul Absolute Lymphs (auto) 1.2 (1.0-4.8) 10^3/ul Absolute Monos (auto) 0.2 (0-0.8) 10^3/ul Absolute Eos (auto) 0 (0-0.6) 10^3/ul Absolute Basos (auto) 0 (0-0.2) 10^3/ul Absolute Nucleated RBC 0.01 10^3/ul Nucleated RBC % 0 Sodium 136 (133-145) mmol/L Potassium 4.1 (3.5-5.0) mmol/L Chloride 107 (101-111) mmol/L Carbon Dioxide 19 L (22-32) mmol/L Anion Gap 10 (2-11) mmol/L BUN 10 (6-24) mg/dL Creatinine 0.79 (0.51-0.95) mg/dL Est GFR ( Amer) 118.1 (>60) Est GFR (Non-Af Amer) 91.9 (>60) BUN/Creatinine Ratio 12.7 (8-20) Glucose 135 H (70-100) mg/dL Lactic Acid 2.1 H* (0.5-2.0) mmol/L Calcium 10.5 H (8.6-10.3) mg/dL Magnesium 1.8 L (1.9-2.7) mg/dL Total Bilirubin 0.30 (0.2-1.0) mg/dL AST 19 (13-39) U/L ALT 14 (7-52) U/L Alkaline Phosphatase 51 (34-104) U/L C-Reactive Protein 3.49 (< 5.00) mg/L Total Protein 8.0 (6.4-8.9) g/dL Albumin 4.6 (3.2-5.2) g/dL Globulin 3.4 (2-4) g/dL Albumin/Globulin Ratio 1.4 (1-3) Amylase 73 (29-103) U/L Lipase 13 (11.0-82.0) U/L Beta HCG, Quant 5.54 mIU/mL Monoscreen Negative (Negative) Influenza A (Rapid) (Negative) Influenza B (Rapid) (Negative) 11/06/17 Range/Units 11:48 WBC (3.5-10.8) 10^3/ul RBC (4.0-5.4) 10^6/ul Hgb (12.0-16.0) g/dl Hct (35-47) % MCV (80-97) fL MCH (27-31) pg MCHC (31-36) g/dl RDW (10.5-15) % Plt Count (150-450) 10^3/ul MPV (7.4-10.4) um3 Neut % (Auto) (38-83) % Lymph % (Auto) (25-47) % Geary % (Auto) (1-9) % Eos % (Auto) (0-6) % Baso % (Auto) (0-2) % Absolute Neuts (auto) (1.5-7.7) 10^3/ul Absolute Lymphs (auto) (1.0-4.8) 10^3/ul Absolute Monos (auto) (0-0.8) 10^3/ul Absolute Eos (auto) (0-0.6) 10^3/ul Absolute Basos (auto) (0-0.2) 10^3/ul Absolute Nucleated RBC 10^3/ul Nucleated RBC % Sodium (133-145) mmol/L Potassium (3.5-5.0) mmol/L Chloride (101-111) mmol/L Carbon Dioxide (22-32) mmol/L Anion Gap (2-11) mmol/L BUN (6-24) mg/dL Creatinine (0.51-0.95) mg/dL Est GFR ( Amer) (>60) Est GFR (Non-Af Amer) (>60) BUN/Creatinine Ratio (8-20) Glucose (70-100) mg/dL Lactic Acid (0.5-2.0) mmol/L Calcium (8.6-10.3) mg/dL Magnesium (1.9-2.7) mg/dL Total Bilirubin (0.2-1.0) mg/dL AST (13-39) U/L ALT (7-52) U/L Alkaline Phosphatase (34-104) U/L C-Reactive Protein (< 5.00) mg/L Total Protein (6.4-8.9) g/dL Albumin (3.2-5.2) g/dL Globulin (2-4) g/dL Albumin/Globulin Ratio (1-3) Amylase (29-103) U/L Lipase (11.0-82.0) U/L Beta HCG, Quant mIU/mL Monoscreen (Negative) Influenza A (Rapid) Negative (Negative) Influenza B (Rapid) Negative (Negative) Assess/Plan/Problems-Billing Ms Squires is a 22 yo F who has a h/o asthma and gerd who presented to the ER with c/o nausea and vomiting and was admitted for gastroenteritis. - Patient Problems (1) Gastroenteritis Current Visit: Yes Status: Acute Code(s): K52.9 - NONINFECTIVE GASTROENTERITIS AND COLITIS, UNSPECIFIED SNOMED Code(s): 21550973 Comment: The patient's nausea, vomiting and diarrhea have resolved. She had a regular diet this AM and ate a little but states her appetite is not the greatest. She does state she can go home today and slowly advance her diet as she is able to. I will send her home with Nnamdi CRANDALL. (2) Asthma Current Visit: Yes Status: Acute Code(s): J45.909 - UNSPECIFIED ASTHMA, UNCOMPLICATED SNOMED Code(s): 610279523 Comment: No symptoms at this time. (3) DVT prophylaxis Current Visit: Yes Status: Acute Code(s): ENP9320 - SNOMED Code(s): 225029327 Comment: ambulation (4) Full code status Current Visit: Yes Status: Acute Code(s): Z78.9 - OTHER SPECIFIED HEALTH STATUS SNOMED Code(s): 943492384 Status and Disposition: d/c home
[2017-11-07] MEDS: DULoxetine DR CAP* 30 MG CAP.DR PO SCH ×2 (11:51→11:53)
--- NOTE | 2017-11-07 16:32 | DS ---
CC: Dr. Mcqueen * DISCHARGE SUMMARY: DATE OF ADMISSION: 11/06/17 DATE OF DISCHARGE: 11/07/17 PRIMARY CARE PROVIDER: Dr. Mcqueen. PRINCIPAL DIAGNOSIS: Probable viral gastroenteritis. SECONDARY DIAGNOSES: 1. History of asthma. 2. History of gastroesophageal reflux disease. 3. History of pelvic inflammatory disease. DISCHARGE MEDICATIONS: 1. Ibuprofen 800 mg p.o. q.6 hours p.r.n. pain. 2. Clotrimazole vaginal cream applied per vagina q.h.s. 3. Protonix 40 mg p.o. daily. 4. Folic acid 1 mg p.o. daily. 5. Cymbalta 30 mg p.o. daily. 6. Zofran ODT 4 mg p.o. q.6 hours p.r.n. nausea (new). HOSPITAL COURSE: Ms. Squires is a 22-year-old female who presented to the emergency room on 11/06/17 with complaints of nausea, vomiting, and diarrhea. This began the night prior to admission. The patient was admitted for IV hydration and nausea management. The patient did improve over the course of the night. She tolerated clear liquid diet and was advanced to regular for breakfast. The patient states that she was able to tolerate it; however, she did not have much of an appetite. The patient does note that her abdominal muscles feel sore, but she thinks that is related to all the vomiting that she was doing previously. At this point, the patient feels stable for discharge home. The patient has been afebrile and her vital signs have been stable throughout her hospitalization. FOLLOWUP CONCERNS: The patient is being discharged home today, 11/07/17. She is to follow up with Dr. Mcqueen in the next 4 to 7 days. ACTIVITY LEVEL: As tolerated. DIET: Regular as tolerated. CONDITION ON DISCHARGE: Stable. TIME SPENT: Twenty minutes was spent discharging this patient. [id number]/[facility] #: [id number] MTDBarb
== END 2017-11-07 13:10 | disposition home or self-care (01) ==
LOC: ED 10:14 → MED 18:33
PROVIDERS: ADMIT Hospitalist; ATTEND Hospitalist
DX: R11.2 Nausea with vomiting, unspecified (principal); R19.7 Diarrhea, unspecified; R10.13 Epigastric pain; N39.0 Urinary tract infection, site not specified; J45.909 Unspecified asthma, uncomplicated; K21.9 Gastro-esophageal reflux disease without esophagitis; N73.9 Female pelvic inflammatory disease, unspecified; Z88.0 Allergy status to penicillin; Z88.2 Allergy status to sulfonamides; Z79.899 Other long term (current) drug therapy
CPT/HCPCS: 36415; 76830; 80048; 80053; 81003; 81015; 82150; 83605; 83690; 83735; 84702; 85025; 86140; 86308; 87077; 87086; 87502; 96365; 96372; 96375; 96376; 99284; A9270-GY; G0378; J0696; J2060; J2270; J2405; J2550; J2765; J3250; J3475

== ENCOUNTER 2017-11-29 10:39 | Emergency (ER) | payer OTHER ==
[2017-11-29 11:45] LABS: ABS Basophils 0 10^3/ul (0-0.2); ABS Eosinophils 0.2 10^3/ul (0-0.6); ABS Monocytes 0.6 10^3/ul (0-0.8); ABS Neutrophils 8.9 10^3/ul (1.5-7.7); ABS Nucleated RBC 0.01 10^3/ul; Eosinophil % 1.7 % (0-6); Hematocrit 38 % (35-47); Hemoglobin 12.4 g/dl (12.0-16.0); Lymphocyte % 9.5 % (25-47); Mean Corpuscular HGB Conc 33 g/dl (31-36); Mean Corpuscular Hemoglobin 30 pg (27-31); Mean Corpuscular Volume 92 fL (80-97); Mean Platelet Volume 7 um3 (7.4-10.4); Nucleated Red Blood Cells % 0; Platelet Count 263 10^3/ul (150-450); Red Blood Count 4.11 10^6/ul (4.0-5.4); Red Cell Distribution Width 15 % (10.5-15); White Blood Count 10.7 10^3/ul (3.5-10.8)
[2017-11-29 12:02] LABS: EGFR Non-African American 105.6 (>60)
[2017-11-29] MEDS ORDERED: Metoclopramide IV* 5 MG/ML 2 ML VIAL IV ONE (13:39)
[2017-11-29] MEDS ORDERED: diPHENhydraMINE IV* 50 MG/ML 1 ml VIAL (BENADRYL) IV ONE (13:39)
[2017-11-29] MEDS ORDERED: NS 0.9% 1000 ML* 1,000 ML IV ONE (13:39)
[2017-11-29] MEDS ORDERED: Fluconazole 150 MG (NF) 150 MG TAB PO ONE (13:59)
[2017-11-29] MEDS ORDERED: Fluconazole 100 MG TAB* TAB PO ONE (15:00)
[2017-11-29 15:47] VITALS: BP 107/59
--- NOTE | 2017-11-29 15:53 | ED ---
Marino Mcclain Natalie, scribed for Dom Hays MD on 11/29/17 at 1345 . Abdominal Pain/Female - HPI Summary HPI Summary: The pt is a 22 y/o F presenting to the ED c/o abd cramping starting this morning. She is 7 weeks into her second . The pain is rated 7/10 in severity. The pain is aggravated by nothing and is alleviated by nothing. 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 Pt additionally c/o nausea, vomiting, fever, and chills. Pt denies diarrhea. She has not visited her [facility], but will on 12/21/2017. She was recently here for similar symptoms. - History of Current Complaint Chief Complaint: EDAbdPain Stated Complaint: VOMITING, FEVER , CHILL, Time Seen by Provider: 11/29/17 13:21 Hx Obtained From: Patient Hx Last Menstrual Period: 07/09/17 ?: Yes - 7 weeks Onset/Duration: Lasting Hours, Still Present Severity Initially: Moderate Severity Currently: Moderate Pain Intensity: 7 Pain Scale Used: 0-10 Numeric Location: Diffuse Radiates: No Character: Cramping Aggravating Factor(s): Nothing Alleviating Factor(s): Nothing Associated Signs and Symptoms: Positive: Other: - POSITVE: vomiting, nausea, fever, chills; NEGATIVE: diarrhea Allergies/Adverse Reactions: Allergies Allergy/AdvReac Type Severity Reaction Status Date / Time Latex Allergy Severe Hives Verified 11/29/17 10:43 Penicillins Allergy Intermediate Rash Verified 11/29/17 10:43 Sulfamethoxazole Allergy Vomiting Verified 11/29/17 10:43 w/Trimethoprim [From Bactrim] PMH/Surg Hx/FS Hx/Imm Hx Previously Healthy: No Endocrine/Hematology History: Reports: Hx Anemia - CAN'T TAKE IRON IT IRRITATES HER STOMACH Denies: Hx Diabetes, Hx Thyroid Disease Cardiovascular History: Denies: Hx Congestive Heart Failure, Hx Hypertension, Hx Pacemaker/ICD Respiratory History: Reports: Hx Asthma Denies: Hx Chronic Obstructive Pulmonary Disease (COPD) GI History: Reports: Hx Gastroesophageal Reflux Disease, Other GI Disorders - CHRONIC ABD PAIN AND BLOOD IN STOOLS X 3 MO Denies: Hx Ulcer History: Reports: Hx Kidney Infection, Other Problems/Disorders - UTIs Denies: Hx Renal Disease Musculoskeletal History: Reports: Hx Tendonitis - KIRSTEN CARPAL TUNNEL Sensory History: Denies: Hx Contacts or Glasses, Hx Hearing Aid Opthamlomology History: Denies: Hx Contacts or Glasses Psychiatric History: Reports: Hx Depression - [place] W/O MEDS Denies: Hx Panic Disorder - Surgical History Surgery Procedure, Year, and Place: tonsillectomy. ear tubes 07/18/16 Hx Anesthesia Reactions: No - Immunization History Date of Tetanus Vaccine: Unknown Date of Influenza Vaccine: None Infectious Disease History: No Infectious Disease History: Denies: Hx Clostridium Difficile, Hx Hepatitis, Hx Human Immunodeficiency Virus (HIV), Hx of Known/Suspected MRSA, Hx Shingles, Hx Tuberculosis, Hx Known/ Suspected VRE, Hx Known/Suspected VRSA, History Other Infectious Disease, Traveled Outside the [place] in Last 30 Days - Family History Known Family History: Positive: Cardiac Disease, Hypertension, Diabetes, Other - cancer - Social History Alcohol Use: None Hx Substance Use: No Substance Use Type: Reports: None Hx Tobacco Use: No Smoking Status (MU): Never Smoked Tobacco Have You Smoked in the Last Year: No Review of Systems Positive: Fever, Chills Positive: Abdominal Pain, Vomiting, Nausea. Negative: Diarrhea All Other Systems Reviewed And Are Negative: Yes Physical Exam Triage Information Reviewed: Yes Vital Signs On Initial Exam: Initial Vitals Temp Pulse Resp BP Pulse Ox 97.5 F 113 16 113/65 100 11/29/17 10:43 11/29/17 10:43 11/29/17 10:43 11/29/17 10:43 11/29/17 10:43 Vital Signs Reviewed: Yes Appearance: Positive: Well-Appearing, No Pain Distress Skin: Positive: Warm, Skin Color Reflects Adequate Perfusion, Dry Head/Face: Positive: Normal Head/Face Inspection Eyes: Positive: EOMI, [place] ENT: Positive: Normal ENT inspection Neck: Positive: Supple, Nontender Respiratory/Lung Sounds: Positive: Clear to Auscultation, Breath Sounds Present Cardiovascular: Positive: RRR, Pulses are Symmetrical in both Upper and Lower Extremities Abdomen Description: Positive: Nontender, Soft Bowel Sounds: Positive: Present Pelvic Exam: Positive: other - watery white to yellow discharge, no cervical motion tenderness Musculoskeletal: Positive: Normal, Strength/ROM Intact Neurological: Positive: Normal, Sensory/Motor Intact, Alert, Oriented to Person Place, Time - Khushboo Coma Scale Coma Scale Total: 15 Diagnostics - Vital Signs Vital Signs Temp Pulse Resp BP Pulse Ox 11/29/17 13:24 103 100 11/29/17 10:43 97.5 F 113 16 113/65 100 - Laboratory Lab Results: Lab Results 11/29/17 11/29/17 11/29/17 Range/Units 11:20 11:20 11:20 WBC 10.7 (3.5-10.8) 10^3/ul RBC 4.11 (4.0-5.4) 10^6/ul Hgb 12.4 (12.0-16.0) g/dl Hct 38 (35-47) % MCV 92 (80-97) fL MCH 30 (27-31) pg MCHC 33 (31-36) g/dl RDW 15 (10.5-15) % Plt Count 263 (150-450) 10^3/ul MPV 7 L (7.4-10.4) um3 Neut % (Auto) 82.7 (38-83) % Lymph % (Auto) 9.5 L (25-47) % [place] % (Auto) 5.7 (1-9) % Eos % (Auto) 1.7 (0-6) % Baso % (Auto) 0.4 (0-2) % Absolute Neuts (auto) 8.9 H (1.5-7.7) 10^3/ul Absolute Lymphs (auto) 1.0 (1.0-4.8) 10^3/ul Absolute Monos (auto) 0.6 (0-0.8) 10^3/ul Absolute Eos (auto) 0.2 (0-0.6) 10^3/ul Absolute Basos (auto) 0 (0-0.2) 10^3/ul Absolute Nucleated RBC 0.01 10^3/ul Nucleated RBC % 0 Sodium 134 (133-145) mmol/L Potassium 3.6 (3.5-5.0) mmol/L Chloride 104 (101-111) mmol/L Carbon Dioxide 24 (22-32) mmol/L Anion Gap 6 (2-11) mmol/L BUN 6 (6-24) mg/dL Creatinine 0.70 (0.51-0.95) mg/dL Est GFR ( Amer) 135.8 (>60) Est GFR (Non-Af Amer) 105.6 (>60) BUN/Creatinine Ratio 8.6 (8-20) Glucose 87 (70-100) mg/dL Lactic Acid 0.9 (0.5-2.0) mmol/L Calcium 10.0 (8.6-10.3) mg/dL Total Bilirubin 0.40 (0.2-1.0) mg/dL AST 13 (13-39) U/L ALT 11 (7-52) U/L Alkaline Phosphatase 48 (34-104) U/L C-Reactive Protein 4.61 (< 5.00) mg/L Total Protein 7.4 (6.4-8.9) g/dL Albumin 4.2 (3.2-5.2) g/dL Globulin 3.2 (2-4) g/dL Albumin/Globulin Ratio 1.3 (1-3) Lipase 10 L (11.0-82.0) U/L Beta HCG, Quant 78319.00 mIU/mL Result Diagrams: 11/29/17 11:20 11/29/17 11:20 Lab Statement: Any lab studies that have been ordered have been reviewed, and results considered in the medical decision making process. - Additional Comments Diagnostic Additional Comments: Bedside US: +IUP with GS measuring 7w0d. + pole with heart tones. Performed by ER physician. Re-Evaluation - Re-Evaluation First Eval Change: Improved Abdominal Pain Fem Course/Dx - Course Course Of Treatment: pt with n/v/d similar to her children. She was tx symptomatically for that. C/O clumpy discharge. Swabs taken, diflucan here. Bedside US confirms preg in the uterus. - Diagnoses Provider Diagnoses: Acute gastroenteritis, First trimester , Vaginal discharge Discharge - Discharge Plan Condition: Good Disposition: HOME Prescriptions: Promethazine TAB* [Phenergan Tab*] 25 mg PO Q8H PRN #20 tab PRN Reason: Nausea Patient Education Materials: (ED), Gastroenteritis (ED) Referrals: [facility] [Provider Group] No Primary Care Phys,NOPCP [Primary Care Provider] - Additional Instructions: Drink plenty of fluids, gatorade G2 works well. Agenda diet. B Complex vitamin and Unisom taken before bed helps related nausea if that becomes an issue. Return if unable to keep down fluids, worse or other concerns. The documentation as recorded by the Marino mcpherson Natalie accurately reflects the service I personally performed and the decisions made by me, Dom Hays MD.
== END 2017-11-29 16:01 | disposition home or self-care (01) ==
LOC: ED 10:39
DX: R11.2 Nausea with vomiting, unspecified (principal); R50.9 Fever, unspecified; Z34.81 Encounter for supervision of other normal pregnancy, first trimester; Z87.19 Personal history of other diseases of the digestive system
CPT/HCPCS: 36415; 80053; 83605; 83690; 84702; 85025; 86140; 87480; 87491; 87510; 87591; 87661; 96374; 96375; 99282; A9270-GY; J1200; J2765

== ENCOUNTER 2018-02-08 19:56 | Emergency (ER) | payer OTHER ==
[2018-02-08] MEDS ORDERED: NS 0.9% 1000 ML* 1,000 ML IV ONE (20:23)
[2018-02-08] MEDS ORDERED: Ondansetron INJ* 2 MG/ML VIAL IV ONE (20:24)
[2018-02-08 20:35] LABS: ABS Basophils 0 10^3/ul (0-0.2); ABS Eosinophils 0.5 10^3/ul (0-0.6); ABS Lymphocytes 0.9 10^3/ul (1.0-4.8); ABS Monocytes 0.8 10^3/ul (0-0.8); ABS Neutrophils 8.4 10^3/ul (1.5-7.7); ABS Nucleated RBC 0 10^3/ul; Eosinophil % 4.5 % (0-6); Hematocrit 36 % (35-47); Hemoglobin 11.9 g/dl (12.0-16.0); Lymphocyte % 8.4 % (25-47); Mean Corpuscular HGB Conc 33 g/dl (31-36); Mean Corpuscular Hemoglobin 31 pg (27-31); Mean Corpuscular Volume 93 fL (80-97); Mean Platelet Volume 7 um3 (7.4-10.4); Nucleated Red Blood Cells % 0; Platelet Count 242 10^3/ul (150-450); Red Blood Count 3.87 10^6/ul (4.0-5.4); Red Cell Distribution Width 14 % (10.5-15); White Blood Count 10.6 10^3/ul (3.5-10.8)
[2018-02-08 20:54] LABS: EGFR Non-African American 111.1 (>60)
[2018-02-08 22:30] LABS: Urine Appearance Cloudy; Urine Blood Negative (Negative); Urine Color Yellow; Urine Ketones Negative (Negative); Urine Protein 1+(30 mg/dL) (Negative); Urine Specific Gravity 1.011 (1.010-1.030); Urine Urobilinogen Negative (Negative)
--- NOTE | 2018-02-08 23:31 | ED ---
Sandra Mcclain Abhishek, scribed for Octavio Payan MD on 02/08/18 at 2132 . Abdominal Pain/Female - HPI Summary HPI Summary: This patient is a 78 year old F presenting to [facility] accompanied by her daughter with a chief complaint of syncope since today (02/08/18). Pt states she has been under the weather. The pain is described in the lower abd region. The pt states she fell down and has no memory of the fall. There were reportedly two episodes of LOC. Patient reports of another syncopal episode shortly after the first one. Pt states that PCP performed a fecal test. Pt reports that she has had stool problems and frequents the bathroom often (7 to 8 times a day). Pt states this has been occurring for 2 months. Medications reported and reviewed. Pt is currently 17 weeks; G2: P1: A0. The patient rates the pain 5/10 in severity. Symptoms aggravated by nothing. Symptoms alleviated by nothing. Patient reports chills, diaphoresis, blood in stool, abd pain (sharp), nausea, dizziness, LOC, and 2 syncopal episodes. - History of Current Complaint Chief Complaint: EDAbdPain Stated Complaint: ABD PAIN/SYNCOPE Time Seen by Provider: 02/08/18 20:14 Hx Obtained From: Patient Hx Last Menstrual Period: 07/09/17 Onset/Duration: Gradual Onset, Lasting Weeks - since 2 months, Worse Since - today Timing: Constant Severity Initially: Moderate Severity Currently: Moderate Pain Intensity: 5 Pain Scale Used: 0-10 Numeric Location: Diffuse Aggravating Factor(s): Nothing Alleviating Factor(s): Nothing Associated Signs and Symptoms: Positive: Diaphoresis, Blood in Stool, Nausea, Diarrhea, Other: - LOC (2) and Syncope (2) Allergies/Adverse Reactions: Allergies Allergy/AdvReac Type Severity Reaction Status Date / Time latex Allergy Mild Hives Verified 02/08/18 22:00 Penicillins Allergy Rash Verified 02/08/18 22:01 sulfamethoxazole Allergy Vomiting Verified 02/08/18 22:02 [From Bactrim] trimethoprim [From Bactrim] Allergy Vomiting Verified 02/08/18 22:02 PMH/Surg Hx/FS Hx/Imm Hx Endocrine/Hematology History: Reports: Hx Anemia - CAN'T TAKE IRON IT IRRITATES HER STOMACH Denies: Hx Diabetes, Hx Thyroid Disease Cardiovascular History: Denies: Hx Congestive Heart Failure, Hx Hypertension, Hx Pacemaker/ICD Respiratory History: Reports: Hx Asthma Denies: Hx Chronic Obstructive Pulmonary Disease (COPD) GI History: Reports: Hx Gastroesophageal Reflux Disease, Other GI Disorders - CHRONIC ABD PAIN AND BLOOD IN STOOLS X 3 MO Denies: Hx Ulcer History: Reports: Hx Kidney Infection, Other Problems/Disorders - UTIs Denies: Hx Renal Disease Musculoskeletal History: Reports: Hx Tendonitis - KIRSTEN CARPAL TUNNEL Sensory History: Denies: Hx Contacts or Glasses, Hx Hearing Aid Opthamlomology History: Denies: Hx Contacts or Glasses Psychiatric History: Reports: Hx Depression - [place] W/O MEDS Denies: Hx Panic Disorder - Surgical History Surgery Procedure, Year, and Place: tonsillectomy. ear tubes 07/18/16 Hx Anesthesia Reactions: No - Immunization History Date of Tetanus Vaccine: Unknown Date of Influenza Vaccine: None Infectious Disease History: No Infectious Disease History: Denies: Hx Clostridium Difficile, Hx Hepatitis, Hx Human Immunodeficiency Virus (HIV), Hx of Known/Suspected MRSA, Hx Shingles, Hx Tuberculosis, Hx Known/ Suspected VRE, Hx Known/Suspected VRSA, History Other Infectious Disease, Traveled Outside the [place] in Last 30 Days - Family History Known Family History: Positive: Cardiac Disease, Hypertension, Diabetes, Other - cancer - Social History Alcohol Use: None Hx Substance Use: No Substance Use Type: Reports: None Hx Tobacco Use: No Smoking Status (MU): Never Smoked Tobacco Have You Smoked in the Last Year: No Review of Systems Positive: Chills, Skin Diaphoresis Eyes: Negative ENT: Negative Cardiovascular: Negative Respiratory: Negative Positive: Abdominal Pain, Diarrhea - "blood in stool", Nausea Genitourinary: Negative Musculoskeletal: Negative Skin: Negative Neurological: Other - dizziness Positive: Syncope - LOC (2) Psychological: Normal All Other Systems Reviewed And Are Negative: Yes Physical Exam - Summary Physical Exam Summary: Appearance: Well-appearing, Well-nourished Skin: Warm, Dry, No rash Eyes: Normal, PERRL, EOMI, sclera anicteric ENT: Normal Neck: Supple, nontender Respiratory: Clear to auscultation Cardiovascular: S1, S2, no murmur, no rub, no gallop Abdomen: Soft, nontender, no organomegaly Bowel sounds: Present Musculoskeletal: Normal, Strength/ROM Intact, no edema, pulses symmetrical Neurological: Normal, A&Ox3, cranial nerves II-XII WNL, follows commands, gait not tested, sensation intact to pin and light touch Psychiatric: affect normal, behavior appropriate, dressed appropriately, judgment intact Triage Information Reviewed: Yes Vital Signs On Initial Exam: Initial Vitals Temp Pulse Resp BP Pulse Ox 99.2 F 98 16 101/66 100 02/08/18 20:10 02/08/18 20:10 02/08/18 20:10 02/08/18 20:10 02/08/18 20:10 Vital Signs Reviewed: Yes Diagnostics - Vital Signs Vital Signs Temp Pulse Resp BP Pulse Ox 02/08/18 21:12 93 97/57 02/08/18 21:11 90 94/55 02/08/18 20:10 99.2 F 98 16 101/66 100 - Laboratory Lab Results: Lab Results 02/08/18 02/08/18 Range/Units 20:07 20:07 WBC 10.6 (3.5-10.8) 10^3/ul RBC 3.87 L (4.0-5.4) 10^6/ul Hgb 11.9 L (12.0-16.0) g/dl Hct 36 (35-47) % MCV 93 (80-97) fL MCH 31 (27-31) pg MCHC 33 (31-36) g/dl RDW 14 (10.5-15) % Plt Count 242 (150-450) 10^3/ul MPV 7 L (7.4-10.4) um3 Neut % (Auto) 79.3 (38-83) % Lymph % (Auto) 8.4 L (25-47) % [place] % (Auto) 7.4 H (0-7) % Eos % (Auto) 4.5 (0-6) % Baso % (Auto) 0.4 (0-2) % Absolute Neuts (auto) 8.4 H (1.5-7.7) 10^3/ul Absolute Lymphs (auto) 0.9 L (1.0-4.8) 10^3/ul Absolute Monos (auto) 0.8 (0-0.8) 10^3/ul Absolute Eos (auto) 0.5 (0-0.6) 10^3/ul Absolute Basos (auto) 0 (0-0.2) 10^3/ul Absolute Nucleated RBC 0 10^3/ul Nucleated RBC % 0 Sodium 133 (133-145) mmol/L Potassium 3.8 (3.5-5.0) mmol/L Chloride 103 (101-111) mmol/L Carbon Dioxide 23 (22-32) mmol/L Anion Gap 7 (2-11) mmol/L BUN 5 L (6-24) mg/dL Creatinine 0.67 (0.51-0.95) mg/dL Est GFR ( Amer) 142.9 (>60) Est GFR (Non-Af Amer) 111.1 (>60) BUN/Creatinine Ratio 7.5 L (8-20) Glucose 83 (70-100) mg/dL Calcium 9.5 (8.6-10.3) mg/dL Total Bilirubin 0.20 (0.2-1.0) mg/dL AST 19 (13-39) U/L ALT 14 (7-52) U/L Alkaline Phosphatase 37 (34-104) U/L Total Protein 7.1 (6.4-8.9) g/dL Albumin 3.8 (3.2-5.2) g/dL Globulin 3.3 (2-4) g/dL Albumin/Globulin Ratio 1.2 (1-3) Beta HCG, Quant 76894.00 mIU/mL Result Diagrams: 02/08/18 20:07 02/08/18 20:07 Lab Statement: Any lab studies that have been ordered have been reviewed, and results considered in the medical decision making process. Abdominal Pain Fem Course/Dx - Course Course Of Treatment: The pt is a 22 y/o female with c/o syncope and abd pain. Associated symptoms and signs include chills, diaphoresis, blood in stool, nausea, dizziness, and LOC. Pt is currently 17 weeks; G2: P1: A0. The pt states she fell down and has no memory of the fall. There were reportedly two episodes of LOC. Patient reports of another syncopal episode shortly after the first one. Pt reports that she has had stool problems and frequents the bathroom often (7 to 8 times a day). Pt states this has been occurring for 2 months.No diarrhea while in the hospital, etiology of diarrhea remains to be determined. Stool for lactoferrin pending - Diagnoses Provider Diagnoses: Diarrhea, Hyperemesis arising during Discharge - Discharge Plan Condition: Stable Disposition: HOME Patient Education Materials: Hyperemesis Gravidarum (ED), Chronic Diarrhea (ED) Referrals: No Primary Care Phys,NOPCP [Primary Care Provider] - The documentation as recorded by the Sandra mcpherson Abhishek accurately reflects the service I personally performed and the decisions made by me, Octavio Payan MD.
[2018-02-08 23:46] VITALS: BP 106/61
--- NOTE | 2018-02-09 07:41 | RAD ---
HISTORY: Fall, pain, . The gestational age by dates is: Unknown COMPARISONS: None relevant available time dictation TECHNIQUE: Multiple transverse and longitudinal ultrasound images were obtained of the gravid uterus using Grayscale, color Doppler, and M-mode Doppler imaging. FINDINGS: /PLACENTAL EVALUATION: Number of fetuses: Single Presentation: Variable cardiac activity: 140 bpm Gross motion: Observed Placenta position: Anterior Amniotic fluid volume: Normal ANA: 826 cm BIOMETRY: Biparietal diameter: 3.27 cm 16 weeks, 2 days Head circumference: 12.79 cm 16 weeks, 4 days Abdominal circumference: 10.44 cm 16 weeks, 3 days Femur length: 2.14 cm 60 weeks, 3 days HC/AC: 1.23 Estimated weight: 155 grams, +/- 23 grams GESTATIONAL AGE: The composite gestational age is: 16 weeks, 3 days. The ELLEN is: July [birth year] 2018. ANATOMY: cranium: Not evaluated ventricles: Not evaluated choroid plexus: Not evaluated cerebellum: Not evaluated posterior fossa: Not evaluated face/orbits/lips: Not evaluated spine: Not evaluated heart: Normal 4 chamber diaphragm: Not evaluated stomach: Not evaluated kidneys: Not evaluated bladder: Not evaluated cord: Normal three-vessel cord with normal insertion CERVIX: The cervix is long and closed, without funneling.. The cervix measures 3.4 cm. OTHER: None IMPRESSION: SINGLE LIVE INTRAUTERINE GESTATION AT 16 WEEKS, 3 DAYS BY COMPOSITE GESTATIONAL AGE.
== END 2018-02-08 23:55 | disposition home or self-care (01) ==
LOC: ED 19:56
DX: O21.0 Mild hyperemesis gravidarum (principal); O26.892 Other specified pregnancy related conditions, second trimester; R19.7 Diarrhea, unspecified; Z3A.17 17 weeks gestation of pregnancy; Z88.0 Allergy status to penicillin; Z88.2 Allergy status to sulfonamides
CPT/HCPCS: 36415; 76815; 80053; 81003; 81015; 84702; 85025; 87086; 96361; 99283; J2405

== ENCOUNTER 2018-04-05 08:06 | Emergency (ER) | payer OTHER ==
[2018-04-05 08:21] VITALS: BP 96/63
--- NOTE | 2018-04-05 08:48 | UC ---
Throat Pain/Nasal Lane HPI - HPI Summary HPI Summary: 23 yo BF 28 wk GA c/o RICKS and throat pain worse this AM , was "scratchy last night". also taking Azithromycin for dental infection and wondering if this is an allergic reaction but denies tongue/lip swelling, sx of bronchospasm - History of Current Complaint Chief Complaint: UCGeneralIllness Stated Complaint: SORE THREAT Time Seen by Provider: 04/05/18 08:29 Hx Obtained From: Patient Hx Last Menstrual Period: 07/09/17 Onset/Duration: Sudden Onset Pain Intensity: 8 - Allergies/Home Medications Allergies/Adverse Reactions: Allergies Allergy/AdvReac Type Severity Reaction Status Date / Time latex Allergy Mild Hives Verified 04/05/18 08:13 Penicillins Allergy Rash Verified 04/05/18 08:13 sulfamethoxazole Allergy Vomiting Verified 04/05/18 08:13 [From Bactrim] trimethoprim [From Bactrim] Allergy Vomiting Verified 04/05/18 08:13 Home Medications: Home Medications Acetaminophen [Acetaminophen Extra Strength] 500 mg PO Q6HR PRN 04/05/18 [ History Confirmed 04/05/18] Azithromycin 250 mg PO DAILY 04/05/18 [History Confirmed 04/05/18] Cholecalciferol TAB* [Vitamin D TAB*] 1 tab PO DAILY 04/05/18 [History Confirmed 04/05/18] Iron,Carbonyl [Iron Chews] 1 tab PO DAILY 04/05/18 [History Confirmed 04/05/18] 95/Iron Fum/Folic/Dha [ + Dha Combo Pack] 1 tab PO DAILY [History Confirmed 04/05/18] PMH/Surg Hx/FS Hx/Imm Hx - Additional Past Medical History Additional PMH: 28 wks GA Previously Healthy: Yes - Surgical History Surgical History: Yes Surgery Procedure, Year, and Place: tonsillectomy. ear tubes 07/18/16 - Family History Known Family History: Positive: Cardiac Disease, Hypertension, Diabetes, Other - cancer - Social History Alcohol Use: None Substance Use Type: None Smoking Status (MU): Never Smoked Tobacco Have You Smoked in the Last Year: No - Immunization History Vaccination Up to Date: Yes Review of Systems Constitutional: Negative Skin: Negative Eyes: Negative ENT: Sore Throat Respiratory: Negative Cardiovascular: Negative Gastrointestinal: Negative Genitourinary: Negative Motor: Negative Neurovascular: Negative Musculoskeletal: Negative Neurological: Negative Psychological: Negative All Other Systems Reviewed And Are Negative: Yes Physical Exam Triage Information Reviewed: Yes Appearance: Well-Appearing Vital Signs: Initial Vital Signs Temp 36.6 C 04/05/18 08:16 Pulse 94 04/05/18 08:16 Resp 18 04/05/18 08:16 BP 96/63 04/05/18 08:16 Pulse Ox 100 04/05/18 08:16 Eye Exam: Normal ENT Exam: Normal ENT: Positive: Hearing grossly normal, Pharynx normal, Nasal congestion, TMs normal, Uvula midline. Negative: Pharyngeal erythema, Nasal drainage, Tonsillar swelling, Tonsillar exudate Dental Exam: Normal Neck exam: Normal Neck: Positive: Tenderness @, Enlarged Nodes @ - anterior cervical and posterior auricular LN tenderness Respiratory Exam: Normal Cardiovascular Exam: Normal Abdominal Exam: Normal Musculoskeletal Exam: Normal Neurological Exam: Normal Psychological Exam: Normal Skin Exam: Normal Throat Pain/Nasal Course/Dx - Course Course Of Treatment: Rapid strep neg- likely viral pharyngitis, salt water gargling, OTC analgesics - Differential Dx/Diagnosis Provider Diagnoses: viral pharyngitis Discharge - Sign-Out/Discharge Documenting (check all that apply): Discharge/Admit/Transfer - Discharge Plan Condition: Stable Disposition: HOME Patient Education Materials: Pharyngitis (ED) Referrals: Maicol Pedro MD [Primary Care Provider] - Additional Instructions: follow up with OB eunice - Billing Disposition and Condition Condition: STABLE Disposition: HOME
== END 2018-04-05 09:04 | disposition home or self-care (01) ==
LOC: UCEAST 08:06
DX: O26.893 Other specified pregnancy related conditions, third trimester (principal); J02.8 Acute pharyngitis due to other specified organisms; Z3A.28 28 weeks gestation of pregnancy; Z88.0 Allergy status to penicillin; Z88.2 Allergy status to sulfonamides; Z91.040 Latex allergy status
CPT/HCPCS: 87651; 99211; G0463

== ENCOUNTER 2018-07-14 07:53 | Inpatient (IN) | payer OTHER ==
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
[2018-07-14] MEDS ORDERED: Oxytocin in LR* 20 UNITS/1,000 ML BAG IVPB SCH ×2 (09:00→22:00)
[2018-07-14 09:29] LABS: ABS Basophils 0 10^3/ul (0-0.2); ABS Eosinophils 0.1 10^3/ul (0-0.6); ABS Lymphocytes 2.2 10^3/ul (1.0-4.8); ABS Monocytes 0.6 10^3/ul (0-0.8); ABS Nucleated RBC 0 10^3/ul; Hematocrit 33 % (35-47); Hemoglobin 11.2 g/dl (12.0-16.0); Lymphocyte % 24.8 % (25-47); Mean Corpuscular HGB Conc 34 g/dl (31-36); Mean Corpuscular Hemoglobin 31 pg (27-31); Mean Corpuscular Volume 91 fL (80-97); Mean Platelet Volume 9.7 um3 (7.4-10.4); Nucleated Red Blood Cells % 0.1; Platelet Count 170 10^3/ul (150-450); Red Blood Count 3.63 10^6/ul (4.00-5.40); Red Cell Distribution Width 15 % (10.5-15); White Blood Count 8.9 10^3/ul (3.5-10.8)
--- NOTE | 2018-07-14 12:00 | PN ---
Progress Note - Progress Note Date of Service: 07/14/18 SOAP: Subjective: [Contractions getting stronger. Has been moving around, on yoga ball, coping well.] Objective: [Pit @ 4 FHT 135, Cat 1 UCs Q2-3 VE deferred] Assessment: [IUP @ 39+1 for IOL. Coping well] Plan: [PARQ discussion nitrous oxide, patient in agreement. May consider AROM]
--- NOTE | 2018-07-14 16:23 | PN ---
Progress Note - Progress Note Date of Service: 07/14/18 SOAP: Subjective: [Would like AROM] Objective: [FHT Cat 1 VE /0 AROM clear UCs q 2-3 min] Assessment: [active labor] Plan: [May desire TEENA or spinal anesthesia. Anticipate SVB]
[2018-07-14] MEDS ORDERED: OBEPIDURAL* 0 ML EPIDURAL ONE (16:31)
[2018-07-14] MEDS ORDERED: fentaNYL* 50 MCG/ML 2 ML VIAL (100 MCG VIAL) ONE (16:58)
[2018-07-14] MEDS ORDERED: Phenylephrine IV* 40 MCG/ML 10 ML SYRINGE IV PUSH PRN ×2 (17:31)
[2018-07-14] MEDS ORDERED: Sodium Citrate/Citric Acid* 15 ML UDC PO PRN (17:31)
[2018-07-14] MEDS ORDERED: Hetastarch 6% in NS* 200 ML IV PRN (17:31)
[2018-07-14] MEDS ORDERED: EPHEDrine (Pressors)* 50 MG/ML VIAL IV PUSH PRN ×2 (17:31)
[2018-07-14] MEDS ORDERED: Famotidine TAB* 20 MG PO PRN (17:31)
[2018-07-14] MEDS ORDERED: diPHENhydraMINE IV* 50 MG/ML 1 ml VIAL (BENADRYL) IV PRN (20:07)
[2018-07-14] MEDS ORDERED: diPHENhydraMINE IV* 50 MG/ML 1 ml VIAL (BENADRYL) ONE (20:07)
[2018-07-14] MEDS ORDERED: Glycerin ADULT SUPP PR PRN (21:10)
[2018-07-14] MEDS ORDERED: Dibucaine 1% 28.35 GM TUBE PR PRN (21:10)
[2018-07-14] MEDS ORDERED: Witch Hazel PAD* JAR TOPICAL PRN (21:10)
[2018-07-14] MEDS ORDERED: Misoprostol TAB* 200 MCG PR ONE (21:10)
[2018-07-14] MEDS: Ibuprofen TAB* 600 MG PO PRN (21:40)
[2018-07-14] MEDS: Acetaminophen TAB* 325 MG PO PRN (22:43)
--- NOTE | 2018-07-14 22:54 | PN ---
Progress Note - Progress Note Date of Service: 07/14/18 - Note time 1820 SOAP: Subjective: [Patient got intrathecal after several epidural attempts. Mostly comfortable but feeling more pressure, desires VE.] Objective: [Pit at 6 VSS, afebrile UCs q 2-4 min FHT 120, cat 1 ] Assessment: [Active labor.] Plan: [Continue to labor with peanut ball and position changes. Anticipate SVB]
--- NOTE | 2018-07-14 23:03 | PROCNOTE ---
[facility] OB: Delivery Note - Nursery Level of Nursery: Regular/Bedside - Perineum Perineal Injury: None/Intact Perineal Repair: None - Events Delivery Events of Note: Pitocin During Labor, Pitocin Only After Delivery - Additional Delivery Notes Additional Delivery Notes: Patient admitted for elective induction @ 39+1 weeks gestation. Pitocin and amniotomy lead to active labor. Two attempts at epidural placement not successful; patient received intrathecal with good effect. Patient labored to an anterior lip with urge to push. Encouraged breathing through urge, methods used to reduce lip: position changes, Benedryl IV, ice to cervix and pushing past ultimately successful with 3 pushes to after lip reduced. LOL 3'55 min, pushed ~15 min after cervical lip reduced; total of 1'20" with urge to push. Baby born OA-MARTHA, shoulders followed with [place] and suprapubic pressure within 30 seconds. Baby vigorous to lower maternal abdomen with short cord. Placenta delivered with gentle cord traction @ 2054. Cord doubly clamped and cut by grandmother once pulsations ceased. Fundus firm with pitocin infusing. Bleeding again noted so Cytotec 800mcg AL given as patient reluctant to allow fundal rubs because of pain. EBL 325ml. Baby at breast to initate . Both stable and well.
[2018-07-15] MEDS: Acetaminophen TAB* 325 MG PO PRN ×4 (03:31→20:13)
[2018-07-15] MEDS: Ibuprofen TAB* 600 MG PO PRN ×3 (03:31→16:23)
[2018-07-15] MEDS: Docusate CAP* 100 MG PO SCH ×3 (08:14→21:00)
[2018-07-15] MEDS ORDERED: Varicella Virus Vaccine Live* 0.5 ML VIAL SUBCUT ONE (09:00)
[2018-07-15 10:01] LABS: ABS Basophils 0.1 10^3/ul (0-0.2); ABS Eosinophils 0.1 10^3/ul (0-0.6); ABS Lymphocytes 2.8 10^3/ul (1.0-4.8); ABS Monocytes 1.2 10^3/ul (0-0.8); ABS Neutrophils 10.8 10^3/ul (1.5-7.7); ABS Nucleated RBC 0 10^3/ul; Eosinophil % 0.7 % (0-6); Hematocrit 26 % (35-47); Hemoglobin 8.5 g/dl (12.0-16.0); Lymphocyte % 18.9 % (25-47); Mean Corpuscular HGB Conc 33 g/dl (31-36); Mean Corpuscular Hemoglobin 31 pg (27-31); Mean Corpuscular Volume 91 fL (80-97); Mean Platelet Volume 8.9 um3 (7.4-10.4); Nucleated Red Blood Cells % 0; Platelet Count 147 10^3/ul (150-450); Red Cell Distribution Width 15 % (10.5-15); White Blood Count 14.9 10^3/ul (3.5-10.8)
[2018-07-15] MEDS: Ferrous Gluconate TAB* 324 MG TAB PO SCH ×2 (10:44→21:00)
[2018-07-15] MEDS: Tobramycin/Dexameth OPTH.SUSP* 2.5 M L BTL SCH (16:23)
[2018-07-15] MEDS ORDERED: oxyCODONE/Acetamin 5/325 MG* TAB PO PRN (17:00)
[2018-07-16] MEDS: Ibuprofen TAB* 600 MG PO PRN ×2 (01:05→08:35)
[2018-07-16 08:09] VITALS: BP 116/78
[2018-07-16] MEDS: Ferrous Gluconate TAB* 324 MG TAB PO SCH (08:35)
[2018-07-16] MEDS: Docusate CAP* 100 MG PO SCH (08:35)
[2018-07-16] MEDS: Tobramycin/Dexameth OPTH.SUSP* 2.5 M L BTL SCH (08:36)
== END 2018-07-16 14:55 | disposition home or self-care (01) | DRG 560 ==
LOC: MCHOBOUT 07:53 → MCHOB 08:35
PROVIDERS: ADMIT Midwife; ATTEND Midwife
PROC: 4A1HXCZ Monitoring of Products of Conception, Cardiac Rate, External Approach (ICD-10-PCS; principal; 2018-07-14)
PROC: 3E033VJ Introduction of Other Hormone into Peripheral Vein, Percutaneous Approach (ICD-10-PCS; 2018-07-14)
PROC: 10E0XZZ Delivery of Products of Conception, External Approach (ICD-10-PCS; 2018-07-14)
PROC: 10907ZC Drainage of Amniotic Fluid, Therapeutic from Products of Conception, Via Natural or Artificial Opening (ICD-10-PCS; 2018-07-14)
DX: O69.3XX0 Labor and delivery complicated by short cord, not applicable or unspecified (principal); Z82.49 Family history of ischemic heart disease and other diseases of the circulatory system; Z88.0 Allergy status to penicillin; Z88.2 Allergy status to sulfonamides; Z88.1 Allergy status to other antibiotic agents; Z91.040 Latex allergy status; O90.81 Anemia of the puerperium; Z3A.39 39 weeks gestation of pregnancy; Z37.0 Single live birth
CPT/HCPCS: 36415; 85025; 86850; 86900; 86901; A9270-GY; J1200; J3010

== ENCOUNTER 2018-09-09 08:29 | Emergency (ER) | payer OTHER ==
--- NOTE | 2018-09-09 10:35 | UC ---
Abdominal Pain Female HPI - HPI Summary HPI Summary: 4 days of epigastric and left lower quadrant abdominal pain. Described as a tearing sensation. Worse after eating. Is complaining of subjective fevers and loose stools. No vomiting but does have some nausea. Is 8 weeks and did not go to her scheduled follow-up appointment. Has had unprotected sex with a new partner over the past few weeks. Is complaining of some slight vaginal discharge and is concerned about STD. Complains of sensation of abdominal bloating and some dysuria. - History of Current Complaint Chief Complaint: UCAbdominalPain Stated Complaint: ABD PAIN Time Seen by Provider: 09/09/18 09:36 Hx Obtained From: Patient Hx Last Menstrual Period: unknown Onset/Duration: Gradual Onset, Lasting Days, Still Present Timing: Constant Severity Initially: Moderate Severity Currently: Moderate Pain Intensity: 9 Pain Scale Used: 0-10 Numeric Location: Discrete At: LLQ, Epigastric Radiates: No Character: Sharp, Tearing Aggravating Factor(s): Food Alleviating Factor(s): Nothing Associated Signs and Symptoms: Positive: Fever - subjective, Urinary Symptoms, Vaginal Discharge, Diarrhea. Negative: Diaphoresis, Constipation, Blood in Stool, Decreased Appetite, Nausea, Vomiting Allergies/Adverse Reactions: Allergies Allergy/AdvReac Type Severity Reaction Status Date / Time latex Allergy Mild Hives Verified 09/09/18 09:22 Penicillins Allergy Rash Verified 09/09/18 09:22 sulfamethoxazole Allergy Vomiting Verified 09/09/18 09:22 [From Bactrim] trimethoprim [From Bactrim] Allergy Vomiting Verified 09/09/18 09:22 PMH/Surg Hx/FS Hx/Imm Hx Previously Healthy: Yes - Surgical History Surgical History: Yes Surgery Procedure, Year, and Place: tonsillectomy. ear tubes 07/18/16 - Family History Known Family History: Positive: Cardiac Disease, Hypertension, Diabetes, Other - cancer - Social History Alcohol Use: None Substance Use Type: None Smoking Status (MU): Never Smoked Tobacco Have You Smoked in the Last Year: No - Immunization History Most Recent Influenza Vaccination: declined Most Recent Pneumonia Vaccination: never Vaccination Up to Date: Yes Review of Systems Constitutional: Fever, Chills Respiratory: Negative Cardiovascular: Negative Gastrointestinal: Abdominal Pain, Diarrhea, Nausea Genitourinary: Dysuria All Other Systems Reviewed And Are Negative: Yes Physical Exam Triage Information Reviewed: Yes Appearance: Well-Appearing, No Pain Distress, Well-Nourished Vital Signs: Initial Vital Signs Temp 98 F 09/09/18 09:15 Pulse 82 09/09/18 09:15 Resp 18 09/09/18 09:15 BP 112/72 09/09/18 09:15 Pulse Ox 100 09/09/18 09:15 Laboratory Tests 09/09/18 09/09/18 10:41 10:43 POC Urine Color Yellow POC Urine Clarity Slightly cloudy POC Urine pH 6.0 POC Ur Specif [place] 1.015 POC Urine Protein Negative POC Ur Glucose (UA) Negative POC Urine Ketones Negative POC Urine Blood Negative POC Urine Nitrite Negative POC Urine Bilirubin Negative POC Urine Urobilinogen 0.2 POC U Leukocyte Esteras Negative POC Ur Test Negative Vital Signs Reviewed: Yes Eyes: Positive: Conjunctiva Clear ENT: Positive: Hearing grossly normal, Pharynx normal, TMs normal Neck: Positive: Supple, Nontender, No Lymphadenopathy Respiratory Exam: Normal Cardiovascular Exam: Normal Abdomen Description: Positive: Soft, CVA Tenderness (R), Distended, Other: - TTP PERIUMBUILICALLY, LLQ AND EPIGASTRIC AREAS. NO REBOUND OR RIGIDITY. Negative: CVA Tenderness (L), Guarding Bowel Sounds: Positive: Present Musculoskeletal: Positive: No Edema Neurological: Positive: Alert Psychological: Positive: Age Appropriate Behavior Skin: Negative: rashes Abd Pain Female Course/Dx - Course Course Of Treatment: PT DECLINES TRANSFER TO ED. ADVISED THAT SHE COULD BE RISKING WORSENING OF HER CONDITION THAT COULD POSE A THREAT TO HER LIFE, HEALTH AND MEDICAL SAFETY. SHE VERBALIZES UNDERSTANDING AND CONTINUES TO DECLINE TRANSFER. PT DECLINES PELCIV EXAM. REQUESTS SCREENING FOR GC/CHLAMYDIA AND STATES SHE WILL F/U WITH PCP OR GO TO ED IF SX WORSEN. - Differential Dx/Diagnosis Provider Diagnoses: 1. LLQ ABDOMINAL PAIN, NOS. 2. STD CHECK - HIGH RISK SEXUAL ACTIVITY Discharge - Sign-Out/Discharge Documenting (check all that apply): Patient Departure All imaging exams completed and their final reports reviewed: No Studies - Discharge Plan Condition: Stable Disposition: HOME-RECOMMEND TO ED Patient Education Materials: Abdominal Pain (ED) Referrals: Mary Lou Mcmahan MD [Primary Care Provider] - Additional Instructions: YOU HAVE DECLINED TRANSFER TO THE ED. BE ADVISED THAT BY NOT GOING YOU COULD BE RISKING WORSENING OF YOUR CONDITION THAT COULD POSE A THREAT TO YOUR LIFE, HEALTH AND MEDICAL SAFETY. URINE TEST TODAY NEGATIVE FOR UTI. NEG. SPECIMEN SENT FOR GONORRHEA AND CHLAMYDIA. - Billing Disposition and Condition Condition: STABLE Disposition: Home-Recommend to ED
[2018-09-09 12:02] VITALS: BP 110/65
== END 2018-09-09 11:54 | disposition home health service (06) ==
LOC: UCEAST 08:29
DX: R10.32 Left lower quadrant pain (principal); N89.8 Other specified noninflammatory disorders of vagina; Z72.51 High risk heterosexual behavior; Z11.3 Encounter for screening for infections with a predominantly sexual mode of transmission; R19.7 Diarrhea, unspecified; R10.13 Epigastric pain; Z88.0 Allergy status to penicillin; Z88.2 Allergy status to sulfonamides; Z91.040 Latex allergy status
CPT/HCPCS: 81003; 84702; 87491; 87591; 99212; G0463

== ENCOUNTER 2018-12-12 05:50 | Emergency (ER) | payer MEDICAID ==
[2018-12-12] MEDS ORDERED: Lidocaine 1%* 5 ML VIAL ONE (06:11)
--- NOTE | 2018-12-12 06:32 | ED ---
Throat Pain/Nasal Congestion - HPI Summary HPI Summary: Pt here w/ return and worsening of dental abscess along Lt upper gingiva despite taking clindamycin. Cheek is swollen and she is having difficulty eating d/t pain. Has been taking ibuprofen and using lidocaine viscous for relief but is not helping. Pain and swelling are radiating into face and jaw here - denies fever, chills, ear pain, difficulty breathing or swallowing and does not taste drainage. HAs appt w/ dentist later today at 10am in [place] but couldn't wait until then. - History of Current Complaint Chief Complaint: EDFacialInjury Time Seen by Provider: 12/12/18 06:01 Hx Obtained From: Patient - Allergies/Home Medications Allergies/Adverse Reactions: Allergies Allergy/AdvReac Type Severity Reaction Status Date / Time latex Allergy Mild Hives Verified 09/09/18 09:22 Penicillins Allergy Rash Verified 09/09/18 09:22 sulfamethoxazole Allergy Vomiting Verified 09/09/18 09:22 [From Bactrim] trimethoprim [From Bactrim] Allergy Vomiting Verified 09/09/18 09:22 PMH/Surg Hx/FS Hx/Imm Hx Previously Healthy: Yes Endocrine/Hematology History: Reports: Hx Anemia - CAN'T TAKE IRON IT IRRITATES HER STOMACH Denies: Hx Diabetes, Hx Thyroid Disease, Autoimmune Disease Cardiovascular History: Denies: Hx Congestive Heart Failure, Hx Hypertension, Hx Pacemaker/ICD Respiratory History: Reports: Hx Asthma Denies: Hx Chronic Obstructive Pulmonary Disease (COPD) GI History: Reports: Hx Gastroesophageal Reflux Disease, Other GI Disorders - CHRONIC ABD PAIN AND BLOOD IN STOOLS X 3 MO Denies: Hx Ulcer History: Reports: Hx Kidney Infection, Other Problems/Disorders - UTIs Denies: Hx Renal Disease Musculoskeletal History: Reports: Hx Tendonitis - KIRSTEN CARPAL TUNNEL Sensory History: Denies: Hx Contacts or Glasses, Hx Hearing Aid Opthamlomology History: Denies: Hx Contacts or Glasses Psychiatric History: Reports: Hx Depression - [place] W/O MEDS Denies: Hx Panic Disorder - Surgical History Surgery Procedure, Year, and Place: tonsillectomy. ear tubes 07/18/16 Hx Anesthesia Reactions: No - Immunization History Date of Tetanus Vaccine: Unknown Date of Influenza Vaccine: None Infectious Disease History: No Infectious Disease History: Denies: Hx Clostridium Difficile, Hx Hepatitis, Hx Human Immunodeficiency Virus (HIV), Hx of Known/Suspected MRSA, Hx Shingles, Hx Tuberculosis, Hx Known/ Suspected VRE, Hx Known/Suspected VRSA, History Other Infectious Disease, Traveled Outside the [place] in Last 30 Days - Family History Known Family History: Positive: Cardiac Disease, Hypertension, Diabetes, Other - cancer - Social History Alcohol Use: None Hx Substance Use: No Substance Use Type: Reports: None Hx Tobacco Use: No Smoking Status (MU): Never Smoked Tobacco Have You Smoked in the Last Year: No Review of Systems Constitutional: Negative Negative: Fever, Chills, Fatigue Eyes: Negative ENT: Other - Lt side face swelling Positive: Dental Pain. Negative: Sore Throat, Ear Ache, Nasal Discharge Negative: Shortness Of Breath Gastrointestinal: Negative Positive: no symptoms reported Skin: Negative Neurological: Negative Psychological: Other - pain is creating stress All Other Systems Reviewed And Are Negative: Yes Physical Exam Triage Information Reviewed: Yes Vital Signs On Initial Exam: Initial Vitals Temp Pulse Resp BP Pulse Ox 98 F 95 18 126/80 100 12/12/18 05:53 12/12/18 05:53 12/12/18 05:53 12/12/18 05:53 12/12/18 05:53 Vital Signs Reviewed: Yes Appearance: Positive: Well-Appearing, Pain Distress - moderate, Obese Skin: Positive: Warm, Skin Color Reflects Adequate Perfusion, Dry - no erythema , no ecchymosis, no lesions over affected area Head/Face: Positive: Normal Head/Face Inspection Eyes: Positive: Normal, EOMI - no pain w/ movement, Conjunctiva Clear. Negative : Conjunctiva Inflammed, Discharge Dental: Positive: Gross Decay/Caries @, Abscess @ - about #13 - gross edema along gingiva and Lt facial swelling w/ nasolabial blunting - no draniage appreciated - TTP; pt has some trismus d/t pain here Neck: Positive: Supple, Tenderness @ - soft tissue about the Lt mandibular angle , Enlarged Nodes @ - mild fullness here Respiratory/Lung Sounds: Positive: Breath Sounds Present. Negative: Stridor Cardiovascular: Positive: Normal Neurological: Positive: Normal, Sensory/Motor Intact, Alert, Oriented to Person Place, Time, CN Intact II-III Psychiatric: Positive: Anxious Procedures - Incision and Drainage Left Upper Site: dental abscess - opened along gingiva about #13 Anesthesia: Topical - cetacaine, Local, Lidocaine Instrument(s): Scalpel - #11 - seropurulent drainage - edema improved Diagnostics - Vital Signs Vital Signs Temp Pulse Resp BP Pulse Ox 12/12/18 05:53 98 F 95 18 126/80 100 - Laboratory Lab Statement: Any lab studies that have been ordered have been reviewed, and results considered in the medical decision making process. Re-Evaluation - Re-Evaluation First Eval Change: Improved EENT Course/Dx - Diagnoses Provider Diagnoses: Dental abscess Discharge - Sign-Out/Discharge Documenting (check all that apply): Patient Departure - Discharge Plan Condition: Stable Disposition: HOME Patient Education Materials: Dental Abscess (ED), Incision and Drainage (ED) Additional Instructions: Continue clindamycin, ibuprofen and lidocaine mouthwash as directed Apply warm compresses and milk the area to aid in expression of purulent drainage from wound Rinse mouth with salt water Follow-up with dentist - call today to update them about procedure and make sure you have an appointment for evaluation of cause of abscess (may need cavity repaired, tooth pulled, etc) *If you develop fever, headache, difficulty breathing or swallowing, return to ED - Billing Disposition and Condition Condition: STABLE Disposition: Home
[2018-12-12 06:48] VITALS: BP 148/77
== END 2018-12-12 06:46 | disposition home or self-care (01) ==
LOC: ED 05:50
DX: K04.7 Periapical abscess without sinus (principal)
CPT/HCPCS: 10060; 41800; 99282

== ENCOUNTER 2019-05-18 11:45 | Emergency (ER) | payer MEDICAID, OTHER ==
[2019-05-18 12:31] VITALS: BP 107/63
--- NOTE | 2019-05-18 12:39 | UC ---
Eye Complaint HPI - HPI Summary HPI Summary: 24 year old female who has pinkeye, she would also like a test although she has not missed a period but she is not on control and she is sexually active. Patient would also like STD testing. - History of Current Complaint Chief Complaint: UCRespiratory Stated Complaint: EYE ISSUE Time Seen by Provider: 05/18/19 12:38 Hx Obtained From: Patient Hx Last Menstrual Period: 04/26/19 ?: No Onset/Duration: Gradual Onset Timing: Constant Severity Initially: Mild Severity Currently: Mild Pain Intensity: 8 Location of Injury: Other - No injury Aggravating Factor(s): Nothing Alleviating Factor(s): Nothing Associated Signs And Symptoms: Positive: Drainage (Purulent) - Patient states she has had some yellow crusty drainage from her right eye. - Allergies/Home Medications Allergies/Adverse Reactions: Allergies Allergy/AdvReac Type Severity Reaction Status Date / Time latex Allergy Mild Hives Verified 05/18/19 12:31 Penicillins Allergy Rash Verified 05/18/19 12:31 sulfamethoxazole Allergy Vomiting Verified 05/18/19 12:31 [From Bactrim] trimethoprim [From Bactrim] Allergy Vomiting Verified 05/18/19 12:31 Home Medications: Home Medications Gabapentin [Neurontin] 3 tab PO QPM 05/18/19 [History Confirmed 05/18/19] PMH/Surg Hx/FS Hx/Imm Hx Previously Healthy: Yes Respiratory History: Asthma - Surgical History Surgical History: Yes Surgery Procedure, Year, and Place: tonsillectomy. ear tubes 07/18/16 - Family History Known Family History: Positive: Cardiac Disease, Hypertension, Diabetes, Other - cancer - Social History Alcohol Use: None Substance Use Type: None Smoking Status (MU): Never Smoked Tobacco Have You Smoked in the Last Year: No - Immunization History Most Recent Influenza Vaccination: declined Most Recent Pneumonia Vaccination: never Vaccination Up to Date: Yes Review of Systems All Other Systems Reviewed And Are Negative: Yes Eyes: Positive: Drainage - Patient states pearly yellow drainage from right eye. She also states she has a history of seasonal allergies., Eye Redness ENT: Positive: Sore Throat Is Patient Immunocompromised?: No Physical Exam Triage Information Reviewed: Yes Appearance: Well-Appearing, No Pain Distress, Well-Nourished Vital Signs: Initial Vital Signs Temp 98.2 F 05/18/19 12:26 Pulse 110 05/18/19 12:26 Resp 18 05/18/19 12:26 BP 107/63 05/18/19 12:26 Pulse Ox 99 05/18/19 12:26 Vital Signs Reviewed: Yes Eyes: Positive: Conjunctiva Inflamed, Discharge - Watery discharge from the right eye at this point in time. The conjunctiva and sclera are injected. ENT: Positive: Hearing grossly normal, Pharynx normal, TMs normal, Uvula midline. Negative: Tonsillar swelling, Tonsillar exudate, Trismus, Muffled voice, Hoarse voice Neck: Positive: Supple, Nontender, No Lymphadenopathy Respiratory: Positive: Lungs clear, Normal breath sounds, No respiratory distress, No accessory muscle use Cardiovascular: Positive: RRR, No Murmur, Pulses Normal, Brisk Capillary Refill Abdomen Description: Positive: Nontender, No Organomegaly, Soft Bowel Sounds: Positive: Present Musculoskeletal Exam: Normal Neurological Exam: Normal Psychological Exam: Normal Skin Exam: Normal Eye Complaint Course/Dx - Course Course Of Treatment: 24-year-old female who has a history of seasonal allergies and she has some right eye redness with clear drainage here but she states purulent drainage at home. I am going to treat her for a bacterial conjunctivitis although I believe this may just be allergies. She would like to try Claritin daily which she has in the past but she has no money to buy it [id number] therefore I' m going to write a prescription for that. She is to practice good handwashing. She has an appointment with her primary care provider tomorrow for a recheck. She did want STD testing although she's not had any complaints of vaginal symptoms so I'm going to send a urine for GC and chlamydia. She wanted a test but she has not missed a period however the urine. See test was negative. I did talk with her about getting of control and she states "nothing has worked yet". I did advise using condoms and she states that she is allergic to condoms. - Differential Dx/Diagnosis Provider Diagnosis: Conjunctivitis, Allergic rhinitis Discharge - Sign-Out/Discharge Documenting (check all that apply): Patient Departure All imaging exams completed and their final reports reviewed: No Studies - Discharge Plan Condition: Fair Disposition: HOME Prescriptions: LoraTADine TAB(NF) [Claritin 10 MG TAB(NF)] 10 mg PO DAILY 30 Days #30 tab Tobramycin 0.3% OPHTH.RUTH* 1 drop RIGHT EYE Q4H 7 Days #1 btl Patient Education Materials: Allergic Rhinitis (DC), Conjunctivitis (ED) Referrals: Mary Lou Mcmahan MD [Primary Care Provider] - Additional Instructions: Good handwashing, follow-up with your primary care provider as scheduled. Take the Claritin daily. - Billing Disposition and Condition Condition: FAIR Disposition: Home
[2019-05-19 12:40] LABS: Neisseria gonorrhoeae (GC) RNA Negative (Negative)
--- NOTE | 2019-05-19 18:02 | UC ---
- Progress Note Progress Note: neg gc, neg ch no change ljj 05/19/19 Course/Dx - Diagnoses Provider Diagnoses: Conjunctivitis, Allergic rhinitis Discharge - Sign-Out/Discharge Documenting (check all that apply): Post-Discharge Follow Up All imaging exams completed and their final reports reviewed: No Studies - Discharge Plan Condition: Fair Disposition: HOME Prescriptions: LoraTADine TAB(NF) [Claritin 10 MG TAB(NF)] 10 mg PO DAILY 30 Days #30 tab Tobramycin 0.3% OPHTH.RUTH* 1 drop RIGHT EYE Q4H 7 Days #1 btl Patient Education Materials: Allergic Rhinitis (DC), Conjunctivitis (ED) Referrals: Mary Lou Mcmahan MD [Primary Care Provider] - Additional Instructions: Good handwashing, follow-up with your primary care provider as scheduled. Take the Claritin daily. - Billing Disposition and Condition Condition: FAIR Disposition: Home
== END 2019-05-18 13:19 | disposition home or self-care (01) ==
LOC: UCEAST 11:45
DX: H10.9 Unspecified conjunctivitis (principal); J30.9 Allergic rhinitis, unspecified
CPT/HCPCS: 84702; 87491; 87591; 99211; G0463

== ENCOUNTER 2019-06-22 20:26 | Emergency (ER) | payer OTHER ==
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
[2019-06-22 23:29] VITALS: BP 0/0
== END 2019-06-22 23:28 | disposition home or self-care (01) ==
LOC: ED 20:26
DX: O26.891 Other specified pregnancy related conditions, first trimester (principal); R10.9 Unspecified abdominal pain; M54.2 Cervicalgia; Z3A.08 8 weeks gestation of pregnancy; V47.6XXA Car passenger injured in collision with fixed or stationary object in traffic accident, initial encounter; Y92.410 Unspecified street and highway as the place of occurrence of the external cause; Z88.0 Allergy status to penicillin; Z88.2 Allergy status to sulfonamides; Z88.1 Allergy status to other antibiotic agents; Z91.040 Latex allergy status; D64.9 Anemia, unspecified; J45.909 Unspecified asthma, uncomplicated; K21.9 Gastro-esophageal reflux disease without esophagitis
CPT/HCPCS: 72050; 76815; 99282

== ENCOUNTER 2019-07-02 17:56 | Emergency (ER) | payer OTHER ==
--- NOTE | 2019-07-02 18:19 | ED ---
- HPI Summary HPI Summary: A 24 y/o female who is 10 weeks brought in by [facility] presents to [facility] with a chief complaint of severe vaginal bleeding. The patient notes that she had some teeth removed and was given some medications. She says that a few hours later when she was standing, blood started gushing out. She also reports abdominal cramping, and at triage she rated her pain as a 9/10 in severity. Her LNMP was 04/26/19 and her due date is 02/02/20. - History of Current Complaint Chief Complaint: EDOBProblems Stated Complaint: VAGINAL BLEEDING PER EMS Time Seen by Provider: 07/02/19 18:10 Hx Obtained From: Patient, EMS Chief Complaint: Vaginal Bleeding Onset/Duration: Started Hours Ago, Still Present Timing: Constant Severity: Severe Current Severity: Severe Pain Intensity: 9 - out of 10 Location of Pain: Diffuse Character: Cramping Aggravating Factors: Nothing Alleviating Factors: Nothing Associated Signs and Symptoms: Positive: Vaginal Bleeding or Discharge, Other: - abdominal cramping. Negative: Fever - Assessment Hx Now: No Hx : 2 SAB: 0 IEA: 0 Hx Hysterectomy: No - Additional Pertinent History Primary Care Physician: [id number] Maternal Blood Type and Rh: O Positive - Allergies/Home Medications Allergies/Adverse Reactions: Allergies Allergy/AdvReac Type Severity Reaction Status Date / Time latex Allergy Mild Hives Verified 06/22/19 20:39 Penicillins Allergy Rash Verified 06/22/19 20:39 sulfamethoxazole Allergy Vomiting Verified 06/22/19 20:39 [From Bactrim] trimethoprim [From Bactrim] Allergy Vomiting Verified 06/22/19 20:39 PMH/Surg Hx/FS Hx/Imm Hx Endocrine/Hematology History: Reports: Hx Anemia - CAN'T TAKE IRON IT IRRITATES HER STOMACH Denies: Hx Diabetes, Hx Thyroid Disease Cardiovascular History: Denies: Hx Congestive Heart Failure, Hx Hypertension, Hx Pacemaker/ICD Respiratory History: Reports: Hx Asthma Denies: Hx Chronic Obstructive Pulmonary Disease (COPD) GI History: Reports: Hx Gastroesophageal Reflux Disease, Other GI Disorders - CHRONIC ABD PAIN AND BLOOD IN STOOLS X 3 MO Denies: Hx Ulcer History: Reports: Hx Kidney Infection, Other Problems/Disorders - UTIs Denies: Hx Renal Disease Musculoskeletal History: Reports: Hx Tendonitis - KIRSTEN CARPAL TUNNEL Sensory History: Denies: Hx Contacts or Glasses, Hx Hearing Aid Opthamlomology History: Denies: Hx Contacts or Glasses Psychiatric History: Reports: Hx Depression - [place] W/O MEDS Denies: Hx Panic Disorder - Surgical History Surgery Procedure, Year, and Place: tonsillectomy. ear tubes 07/18/16 Hx Anesthesia Reactions: No - Immunization History Date of Tetanus Vaccine: Unknown Date of Influenza Vaccine: None Infectious Disease History: No Infectious Disease History: Denies: Hx Clostridium Difficile, Hx Hepatitis, Hx Human Immunodeficiency Virus (HIV), Hx of Known/Suspected MRSA, Hx Shingles, Hx Tuberculosis, Hx Known/ Suspected VRE, Hx Known/Suspected VRSA, History Other Infectious Disease, Traveled Outside the [place] in Last 30 Days - Family History Known Family History: Positive: Cardiac Disease, Hypertension, Diabetes, Other - cancer - Social History Alcohol Use: None Hx Substance Use: No Substance Use Type: Reports: None Hx Tobacco Use: No Smoking Status (MU): Never Smoked Tobacco Have You Smoked in the Last Year: No Review of Systems Negative: Fever Positive: Abdominal Pain - cramping Positive: other - positive: vaginal bleeding All Other Systems Reviewed And Are Negative: Yes Physical Exam - Summary Physical Exam Summary: Appearance: The patient is well-nourished in no acute distress and in no acute pain. Skin: The skin is warm and dry and skin color reflects adequate perfusion. HEENT: The head is normocephalic and atraumatic. The pupils are equal and reactive. The conjunctivae are clear and without drainage. Nares are patent and without drainage. Mouth reveals moist mucous membranes and the throat is without erythema and exudate. The external ears are intact. The ear canals are patent and without drainage. The tympanic membranes are intact. Neck: The neck is supple with full range of motion and non-tender. There are no carotid bruits. There is no neck vein distension. Respiratory: Chest is non-tender. Lungs are clear to auscultation and breath sounds are symmetrical and equal. Cardiovascular: Heart is regular rate and rhythm. There is no murmur or rub auscultated. There is no peripheral edema and pulses are symmetrical and equal. Abdomen: The abdomen is soft and non-tender. There are normal bowel sounds heard in all four quadrants and there is no organomegaly palpated. Musculoskeletal: There is no back tenderness noted. Extremities are non-tender with full range of motion. There is good capillary refill. There is no peripheral edema or calf tenderness elicited. Neurological: Patient is alert and oriented to person, place and time. The patient has symmetrical motor strength in all four extremities. Cranial nerves are grossly intact. Deep tendon reflexes are symmetrical and equal in all four extremities. Psychiatric: The patient has an appropriate affect and does not exhibit any anxiety or depression. - Physical Exam Triage Information Reviewed: Yes Vital Signs Reviewed: Yes Diagnostics - Vital Signs Vital Signs Temp Pulse Resp BP Pulse Ox 07/02/19 18:05 99.0 F 77 16 115/77 98 - Laboratory Result Diagrams: 07/02/19 19:19 07/02/19 19:19 Lab Statement: Any lab studies that have been ordered have been reviewed, and results considered in the medical decision making process. - Ultrasound No standard instances Ultrasound Interpretation Completed By: Radiologist Summary of Ultrasound Findings: Transvaginal ultrasound impression: 1. There is a single live intrauterine of sonographic gestational age. 9 weeks 6 days, ELLEN January 29, 2020. 2. No visible subchorionic hemorrhage. 3. There is likely corpus luteum cyst of the right ovary measuring 2.2 cm. ED physician has reviewed this imaging report. Course/Dx - Course Course Of Treatment: Ms. Squires experience first trimester bleeding today. She did not have any other symptoms. Labs were obtained and were unremarkable. Ultrasound showed a viable IUP. At this point, we're cautiously observing her. I recommended follow-up with [facility] whom she has an appointment with later in . - Diagnoses Provider Diagnoses: First trimester bleeding Discharge - Sign-Out/Discharge Documenting (check all that apply): Patient Departure - DC Patient Received Moderate/Deep Sedation with Procedure: No - Discharge Plan Condition: Stable Disposition: HOME Patient Education Materials: Non-Threatening First Trimester Vaginal Bleed (ED) Referrals: Mary Lou Mcmahan MD [Primary Care Provider] - (2-3 days) Additional Instructions: Follow up with [facility]. Return to the ED if you experience any new or worsening symptoms. - Billing Disposition and Condition Condition: STABLE Disposition: Home - Attestation Statements Document Initiated by Scribe: Yes Documenting Scribe: Ronnell Fitch Provider For Whom Scribe is Documenting (Include Credential): Nicholas Hernández MD Scribe Attestation: I, Ronnell Fitch, scribed for Nicholas Hernández MD on 07/02/19 at 2207. Scribe Documentation Reviewed: Yes Provider Attestation: The documentation as recorded by the scribe, Ronnell Fitch accurately reflects the service I personally performed and the decisions made by me, Nicholas Hernández MD Status of Scribe Document: Viewed
[2019-07-02 19:33] LABS: ABS Lymphocytes 1.9 10^3/ul (1.0-4.8); ABS Monocytes 0.5 10^3/ul (0-0.8); ABS Neutrophils 6.8 10^3/ul (1.5-7.7); Eosinophil % 0.4 %; Hematocrit 35 % (35-47); Hemoglobin 11.5 g/dL (12.0-16.0); Lymphocyte % 20.7 %; Mean Corpuscular HGB Conc 33 g/dL (31-36); Mean Corpuscular Hemoglobin 29 pg (27-31); Mean Corpuscular Volume 89 fL (80-97); Mean Platelet Volume 7.3 fL (7.4-10.4); Nucleated Red Blood Cells % 0.1; Platelet Count 257 10^3/uL (150-450); Red Blood Count 3.92 10^6 /uL (3.70-4.87); Red Cell Distribution Width 16 % (10-15); White Blood Count 9.4 10^3/uL (3.5-10.8)
[2019-07-02 19:43] LABS: Albumin 4.1 g/dL (3.2-5.2); Albumin/Globulin Ratio 1.2 (1-3); BUN/Creatinine Ratio 9.9 (8-20); Calcium 9.6 mg/dL (8.6-10.3); EGFR African American 123.4 (>60); Globulin 3.4 g/dL (2-4); Potassium 3.7 mmol/L (3.5-5.0); Total Bilirubin 0.3 mg/dL (0.2-1.0); Total Protein 7.5 g/dL (6.4-8.9)
[2019-07-02] MEDS ORDERED: Acetaminophen TAB* 325 MG PO ONE (20:00)
[2019-07-02 21:04] VITALS: BP 106/69
--- OUTSIDE RECORDS SUMMARY | 2019-07-03 01:25 | XMS REPORT | Continuity of Care Document ---
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 Payers Date Identification Numbers Payment Provider Subscriber Policy Number: [id number] [employer] Jayne Squires PayID: [id number] [address] [place] [address] Policy Number: [id number] Medicaid [place] Jayne Squires PayID: [id number] [address] [place] [address] Problems Active Problems Provider Date Multigravida Una Olvera CNM Onset: 02/10/2018 Inactive Problems Supervison Of Normal Other COSMO Syed Onset: 06/01/2013 Inactive: 08/12/2017 Dysuria Onset: Inactive: 08/12/2017 Chlamydial infection Onset: Inactive: 08/12/2017 Contraception care education Onset: Inactive: 08/12/2017 Urine test negative Onset: Inactive: 08/12/2017 Oral contraceptive advice Onset: Inactive: 08/12/2017 Venereal disease screening Onset: Inactive: 08/12/2017 Gynecologic examination Onset: Inactive: 08/12/2017 RhD positive Onset: 04/01/2017 Inactive: 08/12/2017 Candidal vulvovaginitis Onset: Inactive: 08/12/2017 Disorder of female genital system Onset: Inactive: 08/12/2017 Noninflammatory disorder of the vagina Onset: Inactive: 08/12/2017 Contraceptive agent Onset: Inactive: 08/12/2017 Viral disease Onset: Inactive: 08/12/2017 Human immunodeficiency virus counseling Onset: Inactive: 08/12/2017 Contraception care management Onset: Inactive: 08/12/2017 Increased frequency of urination Onset: Inactive: 08/12/2017 Cyst of right ovary Onset: Inactive: 08/12/2017 Vaginitis and vulvovaginitis Onset: Inactive: 08/12/2017 Urgent desire to urinate Onset: Inactive: 08/12/2017 Acute hemorrhagic cystitis Onset: Inactive: 08/12/2017 Iron deficiency screening Onset: Inactive: 08/12/2017 Disorder of menstruation Onset: Inactive: 08/12/2017 Leukorrhea Onset: Inactive: 08/12/2017 Oral contraceptive prescribed Onset: Inactive: 08/12/2017 Cervicitis and endocervicitis Onset: Inactive: 08/12/2017 Hematuria syndrome Onset: Inactive: 08/12/2017 Atypical squamous cells of undetermined significance on cervical Onset: Papanicolaou smear Inactive: 01/14/2018 Genital herpes simplex Onset: Inactive: 01/14/2018 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 live in a home Heart, brain Third Brother Mental Illness Fourth Brother Unknown Fifth Brother Healthy Sixth Brother A&W Paternal Grandfather due to Unknown Causes () Paternal Grandmother Hypertension Maternal Grandfather Unknown Maternal Grandmother Unknown Social History Type Date Description Comments Sex Unknown Education Currently working on dianboomelor's Degree Marital Status Single Lives With Daughters Pets None Occupation Student [employer] Tobacco Use Start: Unknown Never Smoked Cigarettes Smoking Status Reviewed: 09/11/18 Never Smoked Cigarettes ETOH Use Denies alcohol use Tobacco Use Start: Unknown End: Patient is a former smoker Unknown Recreational Drug Use Denies Drug Use Exercise Type/Frequency Does not exercise Seat Belt/Car Seat Always uses seat belt STD's HPV, High Risk Allergies, Adverse Reactions, Alerts Active Allergies Reaction Severity Comments Date Latex 02/25/2013 Sulfamethoxazole Nausea and Vomiting 10/10/2016 Lavender Extract 03/29/2017 Trimethoprim 10/10/2016 Penicillins 05/05/2014 Medications Active Medications SIG Qnty Indications Ordering Date Provider Nitrofurantoin take 1 capsule 14caps Liss Christina 06/12/2019 Macrocrystal twice a day for 7 Riana, CNM 100mg days Capsules Clarithromycin 1 tablet every 12 14tabs Liss Christina 06/12/2019 250mg hours for 10 days Riana, CNM Tablets Physical Therapy Evaluate and treat O80 Una Olvera, 09/30/2018 for pelvic and CNM abdominal pain and for general pelvic floor recovery R10.2 Ventolin HFA inhale [facility] puffs [facility] 01/27/2018 108(90Base) mouth every 4 to 6 mcg/Act Aerosol hours as needed shortness ofbreath Abdominal Support 2X/3X Maternity support 1units Una Olvera [facility] Large belt: use as directed 2X/3X LG Misc 1 by mouth every day Unknown Tablets History Medications Metronidazole 1 applicatorful (5gm) 45gm Una Olvera, 07/31/2018 - 0.75% Gel by way of vagina [facility] 09/10/2018 every night x 5 days Fluconazole 1 tablet then second 2tabs Una Olvera 07/31/2018 - 150mg Tablets tablet 72 hours later [facility] 09/10/2018 as needed for continuing symptoms Acetaminophen Extra two tablets by mouth 90tabs Una Olvera 2017 - Strength as needed every 6-8 [facility] 09/10/2018 500mg Tablets hours for headache or pain Ibuprofen 1 tab by mouth every 90tabs Una Olvera, 07/20/2018 - 600mg Tablets 6 hours as needed for [facility] 09/10/2018 pain Docusate Sodium 1 cap by mouth up to 30caps nilson Olvera, 07/20/2018 - 100mg 3 times daily as [facility] 09/10/2018 Capsules needed Cephalexin 1 tablet by mouth 4 40tabs Una Olvera, 07/20/2018 - 500mg Tablets times daily for 10 CNM 09/10/2018 days Diflucan take 1 by mouth for 2tabs Nain Arrieta, 07/05/2018 - 150mg Tablets yeast. repeat x 1 as [facility] 07/12/2018 needed Metrogel-Vaginal 1 applicator every 1TX Nain Arrieta, 07/05/2018 - 0.75% night at bedtime x 5 CN 07/12/2018 Gel days Valacyclovir HCL 1 by mouth every day 30tabs Una Olvera, 06/24/2018 - 500mg CN 07/05/2018 Tablets Valacyclovir HCL 1 by mouth twice 6tabs Una Olvera, 06/24/2018 - 500mg daily for 3 days [facility] 09/10/2018 Tablets Magnesium 27 1 tablet daily 30tabs Una Olvera, 06/23/2018 - 500(27Mg) mg [facility] 09/10/2018 Tablets Oxycodone-Acetaminophe 1 tablets by mouth 24tabs Cornelius Wheeler, 04/04/2018 - n every 6 hours as [facility] 05/31/2018 5-325mg Tablets needed pain Terconazole 1 applicator per 20gm Cornelius Wheeler, 2018 - 0.8% Cream vagina at bedtime x 3 [facility] 03/16/2018 Ferrous Gluconate one tablet by mouth 90tabs Una Olvera, 01/27/2018 - once a day [facility] 09/10/2018 324(38Fe) mg Tablets No Active Medications Unknown 11/22/2017 - 01/27/2018 Diflucan 2 by mouth 1st dose 6tabs Lovely Maradiaga, 08/15/2017 - 100mg Tablets and then 1 by mouth ANP-C 08/20/2017 every day x 4 Astrid 1 tab po within 120 Unknown 06/17/2017 - 30mg Tablets hours of unprotected 08/12/2017 sex (#1) Levonorgestrel 1 tab po within 72 Unknown 06/10/2017 - 1.5mg hours unprotected IC 08/12/2017 Tablets Keflex Four Times Daily 40caps Unknown 03/24/2017 - 500mg Capsules 08/12/2017 Flexeril Three Times Daily 9tabs Unknown 02/14/2017 - 10mg Tablets 08/12/2017 Motrin Four Times Daily 40tabs Unknown 01/21/2017 - Repack 11/07/2017 600mg Tablets Levonorgestrel take 1 tablet by oral Unknown 12/11/2016 - 1.5mg route once as soon as 08/12/2017 Tablets possible within 72 hours (3 days) after unprotected intercourse Terazol 3 use hs x 3 1units Lovelyminna Maradiaga, 10/07/2013 - 0.8% Cream [facility] 10/15/2013 Colace 1 po qd 30caps Lovely Ashwini, 10/05/2013 - 100mg Capsules [facility] 10/06/2013 Macrobid 1 po bid X 7 14caps Lovely Maradiaga, 10/05/2013 - 100mg Capsules [facility] 10/15/2013 Zyrtec Allergy 1 po qd 30tabs oLvely Maradiaga, 09/22/2013 - 10mg [facility]- 10/06/2013 Tablets Acetaminophen Take 10 ml PO prn 60ml Gio Da Silva 07/20/2013 - 160mg/5ML mild-moderate pain 10/06/2013 Liquid Zofran Odt take 1 sl q8 prn 30tabs Gio Da Silva 07/20/2013 - 4mg Tablets nausea 10/06/2013 Dispers Ferrous Sulfate 1 po qd 30tabs Nixon Chun 06/10/2013 - 325(65Fe) Leonela Danielle 10/06/2013 mg Tablets Flintstones Complete 2 po qd 90units Gio Da Silva 06/01/2013 - 60mg 08/12/2017 Chewtabs Terazol 3 use 1 applicator qhs 1tube Nixon Chun 06/01/2013 - 0.8% Cream x 3 nights Leonela Danielle 07/19/2013 Terconazole 1 applicatorful per 7days Haleigh Nolan 05/06/2013 - 0.8% Cream vagina at hs x7 MD Neeraj 05/31/2013 Quasense take 1 po 3mo Haleigh Nolan 05/06/2013 - 0.15-0.03mg continuously MD Neeraj 05/24/2013 Tablets Ranitidine HCL 2 tablet at night 30tabs Haleigh Nolan 04/21/2013 - 150mg MD Neeraj 05/31/2013 Tablets Loestrin 1.5/30-21 as directed 1pack Haleigh Nolan 04/21/2013 - MD Neeraj 05/06/2013 1.5-30mg-mcg Tablets Doxycycline Hyclate 1 tablet every 12 28caps Haleigh Nolan 04/21/2013 - 100mg hours MD Neeraj 05/31/2013 Capsules Ofloxacin 1 po qd 14tabs Haleigh Nolan 04/21/2013 - 400mg Tablets MD Neeraj 05/31/2013 Ciprofloxacin HCL 1 tablet Daily 14tabs Haleigh Nolan 04/06/2013 - 500mg MD Neeraj 04/01/2013 Tablets Metronidazole 1 tablet every 12 28tabs Haleigh Cool 04/01/2013 - 500mg hours MD Neeraj 04/01/2013 Tablets no alcohol while taking medication Doxycycline Hyclate 1 tablet every 12 28caps Haleigh Nolan 04/01/2013 - 100mg hours MD Neeraj 04/01/2013 Capsules Ofloxacin 1 po qd 14tabs Haleigh Nolan 04/01/2013 - 400mg Tablets MD Neeraj 04/13/2013 Jolessa take 1 po 3mo Agnieszka 02/25/2013 - 0.15-0.03mg MD Yon 12/02/2012 Tablets Quasense take 1 po 3mo Unknown - 0.15-0.03mg continuously 04/21/2013 Tablets Miralax Unknown - 05/31/2013 Probiotic Unknown - 11/14/2017 Vitamin D3 take one tablet by 60caps Unknown - 1000Unit mouth daily. 09/10/2018 Capsules Medications Administered in Office Medication SIG Qnty Indications Ordering Provider Date PT SCRN Tbco Id as Non User Gio Da Silva MD 09/11/2018 Injection PT SCRN Tbco Id as Non User Cornelius Wheeler CNM 01/14/2018 Injection Immunizations CPT Code Status Date Vaccine Lot # [id number] Given 05/16/2018 Tetnus, Diptheria Toxoids And Acellular Pertussis, [id number] PT > 7Yrs Old [id number] Given 07/09/2011 Hepatitis B Ursula Adoles For Intramuscular Use 76615 Given 07/09/2011 Gardasil Vaccine For HPV 37004 Given 07/09/2011 Hepatitis A Vaccine Adult Dosage Vital Signs Date Vital Result Comment 06/12/2019 1:12pm BP Systolic 116 mmHg BP Diastolic 68 mmHg Body Temperature 97.9 F Height 60 inches 5'0" Weight 167.00 lb BMI (Body Mass Index) 32.6 kg/m2 Last Menstrual Period [id number] 3 Parity 2 09/11/2018 9:32am BP Systolic 126 mmHg BP Diastolic 78 mmHg Height 60 inches 5'0" Weight 172.00 lb BMI (Body Mass Index) 33.6 kg/m2 2 Parity 2 07/31/2018 12:39pm BP Systolic 114 mmHg BP Diastolic 64 mmHg Body Temperature 98.3 F Height 60 inches 5'0" Weight 172.00 lb BMI (Body Mass Index) 33.6 kg/m2 Last Menstrual Period 8025321 2 Parity 2 01/27/2018 8:57am BP Systolic 112 mmHg BP Diastolic 60 mmHg Height 60 inches 5'0" Weight 161.00 lb BMI (Body Mass Index) 31.4 kg/m2 Last Menstrual Period [id number] 2 Parity 1 01/14/2018 10:35am BP Systolic 110 mmHg BP Diastolic 66 mmHg Height 60 inches 5'0" Weight 160.00 lb BMI (Body Mass Index) 31.2 kg/m2 Last Menstrual Period [id number] 2 Parity 1 11/22/2017 1:25pm BP Systolic 128 mmHg BP Diastolic 64 mmHg Height 60 inches 5'0" Weight 156.00 lb BMI (Body Mass Index) 30.5 kg/m2 2 Parity 1 08/12/2017 2:47pm BP Systolic 120 mmHg BP Diastolic 80 mmHg Height 60 inches 5'0" Weight 176.00 lb BMI (Body Mass Index) 34.4 kg/m2 Last Menstrual Period [id number] 0 Parity 0 03/24/2017 12:00am BP Systolic 109 mmHg BP Diastolic 61 mmHg Body Temperature 98.6 F Heart Rate 90 /min Respiratory Rate 16 /min Height 60 inches Weight 192.00 lb BMI (Body Mass Index) 37.5 kg/m2 01/28/2014 3:23pm BP Systolic 124 mmHg BP Diastolic 76 mmHg Height 59 inches 4'11" 1 Parity 1 06/01/2013 12:58pm BP Systolic 104 mmHg BP Diastolic 60 mmHg Height 60 inches 5'0" Weight 160.00 lb BMI (Body Mass Index) 31.2 kg/m2 Last Menstrual Period [id number] 1 05/06/2013 2:47pm BP Systolic 116 mmHg BP Diastolic 66 mmHg Height 60 inches 5'0" Weight 153.00 lb BMI (Body Mass Index) 29.9 kg/m2 Last Menstrual Period [id number] 0 04/21/2013 3:11pm BP Systolic 110 mmHg BP Diastolic 70 mmHg Height 60 inches 5'0" Weight 150.00 lb BMI (Body Mass Index) 29.3 kg/m2 0 04/01/2013 9:59am BP Systolic 112 mmHg BP Diastolic 66 mmHg Height 59.25 inches 4'11.25" Weight 149.00 lb BMI (Body Mass Index) 29.8 kg/m2 Last Menstrual Period [id number] 02/25/2013 2:47pm BP Systolic 110 mmHg BP Diastolic 70 mmHg Height 59.25 inches 4'11.25" Weight 147.00 lb BMI (Body Mass Index) 29.4 kg/m2 Last Menstrual Period [id number] 0 Results Test Date Facility Test Result H/L Range Note Laboratory test 07/31/2018 [facility] Gardnerella/Yea SEE RESULT [address] [place] [address] st: Vaginal Dna BELOW [phone] Laboratory test 07/05/2018 [facility] Rupture of Negative [address] [place] [address] Membranes [phone] Urinalysis 07/05/2018 [facility] [place] [address] [phone] Urine Appearance Cloudy Urine Specific Golden 1.012 N 1.010-1.030 Urine pH 7.0 N 5-9 Urine Urobilinogen Negative Negative Urine Ketones Negative Negative Urine Protein Negative Negative Urine Leukocytes 3+ Abnormal Negative Urine Blood Negative Negative Urine Nitrite Negative Negative Urine Bilirubin Negative Negative Urine Glucose Negative Negative Urine White Blood Cell 2+(11-20/hpf) Abnormal Absent Urine Red Blood Cell Trace(0-2/hpf) Absent Urine Bacteria 1+ Abnormal Absent Urine Squamous Epithelial Cell Present Abnormal Absent Laboratory test 07/05/2018 [facility] Gardnerella/Yeast: SEE RESULT 3, [address] [place] [address] Vaginal Dna BELOW [phone] Urine Culture 07/05/2018 [facility] Urine Culture SEE RESULT 5 [place] [address] BELOW Sensitivities [phone] Laboratory test 06/27/2018 [facility] Rupture of Membranes Negative 6 [address] [place] [address] [phone] Laboratory test 06/26/2018 [facility] Genital For GRP B SEE RESULT [address] [place] [address] Strep Only BELOW [phone] Urine Culture 05/19/2018 [facility] Urine Culture SEE RESULT 8 [place] [address] BELOW Sensitivities [phone] Type And Screen 05/19/2018 [facility] Patient Blood Type O Positive 9 [place] [address] [phone] Antibody Screen NEGATIVE CBC Auto Diff 05/19/2018 [facility] White Blood 9.3 10^3/uL N 3.5-10.8 10 [place] [address] Count [phone] Red Blood Count 3.71 10^6/uL Low 4.00-5.40 11 Hemoglobin 11.4 g/dL Low 12.0-16.0 12 Hematocrit 35 % N 35-47 13 Mean Corpuscular Volume 94 fL N 80-97 14 Mean Corpuscular Hemoglobin 31 pg N 27-31 15 Mean Corpuscular HGB Conc 33 g/dL N 31-36 16 Red Cell Distribution Width 14 % N 10.5-15 17 Platelet Count 191 10^3/uL N 150-450 18 Mean Platelet Volume 8.6 um3 N 7.4-10.4 19 Abs Neutrophils 6.6 10^3/uL N 1.5-7.7 20 Abs Lymphocytes 1.8 10^3/uL N 1.0-4.8 21 Abs Monocytes 0.7 10^3/uL N 0-0.8 22 Abs Eosinophils 0.1 10^3/uL N 0-0.6 23 Abs Basophils 0.1 10^3/uL N 0-0.2 24 Abs Nucleated RBC 0 10^3/uL 25 Granulocyte % 71.1 % N 38-83 26 Lymphocyte % 19.0 % Low 25-47 27 Monocyte % 7.6 % High 0-7 28 Eosinophil % 1.6 % N 0-6 29 Basophil % 0.7 % N 0-2 30 Nucleated Red Blood Cells % 0.1 31 Urinalysis Profile 05/19/2018 [facility] [place] [address] [phone] Urine Appearance Cloudy Urine Specific Golden 1.017 N 1.010-1.030 Urine pH 6.0 N 5-9 Urine Urobilinogen Negative Negative Urine Ketones Negative Negative Urine Protein Negative Negative Urine Leukocytes 2+ Abnormal Negative Urine Blood Negative Negative Urine Nitrite Negative Negative Urine Bilirubin Negative Negative Urine Glucose Negative Negative Urine White Blood Cell Trace(0-5/hpf) Absent Urine Red Blood Cell Trace(0-2/hpf) Absent Urine Bacteria Absent Absent Urine Squamous Epithelial Cell Present Abnormal Absent Laboratory test 05/05/2018 [facility] Cytology SEE RESULT [address] [place] [address] BELOW [phone] Urine Drug Comp 05/05/2018 [facility] Urine Amphetamine Negative ng/mL 33 20 [place] [address] [phone] Urine Barbiturates Negative ng/mL 34 Urine Benzodiazepines Negative ng/mL 35 Urine Cocaine Negative ng/mL 36 Urine Phencyclidine Negative ng/mL Cutoff: 25 Urine Tetrahydrocannabinol Negative ng/mL Cutoff: 50 37 Creatinine, Urine 133.8 mg/dL Specific Golden 1.014 pH 7.0 Oxidants Negative 38 Adulterants Comment Normal Codeine, Ur Not Detected ng/mL Cutoff: 25 39 Qsiobds-0-hqlu-glucuronide, Ur Not Detected ng/mL 40 Morphine, Ur Not Detected ng/mL Cutoff: 25 41 Iwzdugxe-9-dwpq-glucuronide, U Not Detected ng/mL 42 6-monoacetylmorphine, Ur Not Detected ng/mL Cutoff: 25 43 Hydrocodone, Ur Not Detected ng/mL Cutoff: 25 44 Norhydrocodone, Ur Not Detected ng/mL Cutoff: 25 45 Dihydrocodeine, Ur Not Detected ng/mL Cutoff: 25 46 Hydromorphone, Ur Not Detected ng/mL Cutoff: 25 47 Nexnqutrtttnr4syvzvunnhiwnsbt Not Detected ng/mL 48 Oxycodone, Ur Not Detected ng/mL Cutoff: 25 49 Noroxycodone, Ur Not Detected ng/mL Cutoff: 25 50 Oxymorphone, Ur Not Detected ng/mL Cutoff: 25 51 Hdbxnljwhpg-0-emhp-glucuronide Not Detected ng/mL 52 Noroxymorphone, Ur Not Detected ng/mL Cutoff: 25 53 Fentanyl, Ur Not Detected ng/mL Cutoff: 2 54 Norfentanyl, Ur Not Detected ng/mL Cutoff: 2 55 Meperidine, Ur Not Detected ng/mL Cutoff: 25 56 Normeperidine, Ur Not Detected ng/mL Cutoff: 25 57 Naloxone, Ur Not Detected ng/mL Cutoff: 25 58 Pyxkqvcp-9-qhjh-glucuronide, U Not Detected ng/mL 59 Methadone, Ur Not Detected ng/mL Cutoff: 25 60 Eddp, Ur Not Detected ng/mL Cutoff: 25 61 Propoxyphene, Ur Not Detected ng/mL Cutoff: 25 62 Norpropoxyphene, Ur Not Detected ng/mL Cutoff: 25 63 Tramadol, Ur Not Detected ng/mL Cutoff: 25 64 O-desmethyltramadol, Ur Not Detected ng/mL Cutoff: 25 65 Tapentadol, Ur Not Detected ng/mL Cutoff: 25 66 N-desmethyltapentadol, Ur Not Detected ng/mL Cutoff: 50 67 Mxepszjloq-kfea-qejlzhsirnp, U Not Detected ng/mL 68 Buprenorphine, Ur Not Detected ng/mL Cutoff: 5 69 Norbuprenorphine, Ur Not Detected ng/mL Cutoff: 5 70 Norbuprenorphine glucuronide Not Detected ng/mL Cutoff: 20 71 Opioid Interpretation See Comment 72 GC/Chlamydia Dna 05/05/2018 [facility] Chlamydia [place] [address] trachomatis Rna [phone] Neisseria gonorrhoeae (GC) Rna Negative Negative Parvovirus B19 04/10/2018 [facility] Parvovirus Positive Abnormal Negative [place] [address] (B19) IgG [phone] Antibody Parvovirus (B19) IgM Antibody Negative Negative Parvovirus Interpretation See Comment 73 Varicella 04/10/2018 [facility] Varicella-Zoster IgG Negative [address] [place] [address] Antibody [phone] Varicella IgG Antibody Index 0.8 75 CBC With No 04/10/2018 [facility] White Blood 8.5 10^3/uL N 3.5-10.8 [place] [address] Count [phone] Red Blood Count 3.37 10^6/uL Low 4.0-5.4 Hemoglobin 10.5 g/dL Low 12.0-16.0 Hematocrit 32 % Low 35-47 Mean Corpuscular Volume 96 fL N 80-97 Mean Corpuscular Hemoglobin 31 pg N 27-31 Mean Corpuscular HGB Conc 33 g/dL N 31-36 Red Cell Distribution Width 14 % N 10.5-15 Platelet Count 215 10^3/uL N 150-450 Mean Platelet Volume 8.3 um3 N 7.4-10.4 Urinalysis Profile 03/30/2018 [facility] [place] [address] [phone] Urine Appearance Cloudy Urine Specific Golden 1.021 N 1.010-1.030 Urine pH 7.0 N 5-9 Urine Urobilinogen Negative Negative Urine Ketones Negative Negative Urine Protein Negative Negative Urine Leukocytes Trace Abnormal Negative Urine Blood Negative Negative * * Abnormal Negative 76 Urine Nitrite Negative Negative Urine Bilirubin Negative Negative Urine Glucose Negative Negative Urine White Blood Cell Trace(0-5/hpf) Absent Urine Red Blood Cell Trace(0-2/hpf) Absent Urine Bacteria 2+ Abnormal Absent Urine Squamous Epithelial Cell Present Abnormal Absent Urine Culture And 03/30/2018 [facility] Urine Culture SEE RESULT [address] [place] [address] BELOW [phone] Urine Culture And 2018 [facility] Urine Culture SEE RESULT [address] [place] [address] BELOW [phone] Urine Culture And 01/27/2018 [facility] Urine Culture SEE RESULT [address] [place] [address] BELOW [phone] Quad Screen 01/27/2018 [facility] Interpretation SEE NOTE 80 Risk For NTD (Osb) LESS THAN 1:5000 81 Risk For Down Based On Age 1:1143 Risk For Down Based On SCR LESS THAN 1:5000 <1:270 82 Trisomy 18 Risk Based On SCR LESS THAN 1:5000 <1:100 83 Afp,Serum 25.7 NG/ML Adjusted Mom 0.81 84 HCG,Serum 33.991 IU/mL Mom 0.68 Estriol,Free 0.50 NG/ML Mom 0.88 Inhibin A 193 pg/mL Mom 1.13 Comment SEE NOTE 85 Date Of 1995 ELLEN 07/20/2018 ELLEN Determined By LMP Gestational Age 15.1 WEEKS Weight 161 LBS Race <SEE NOTE> 86 Insulin Dependent Diabetic NO Cigarette Smoker NOT PROVIDED Repeat Sample NO Number Of Fetuses 1 History Of NTD NO Date Of Draw 01/27/2018 [employer] SEE NOTE 87 Laboratory test 11/26/2017 [facility] HCG 84172.00 [address] [place] [address] mIU/mL [phone] Laboratory test 11/22/2017 [facility] HCG 66311.00 [address] [place] [address] mIU/mL [phone] Laboratory test 08/12/2017 [facility] Culture Genital SEE RESULT [address] [place] [address] & Sensitivity BELOW [phone] Laboratory 03/24/2017 N2N/CCD Import Urine Specific 1.017 1.010 Studies Golden -1.03 0 Urine pH 6.0 5-9 Laboratory Studies 03/24/2017 N2N/CCD Import Absolute Basophils 0.1 10^3/ ul 0-0.2 (auto) Absolute Eosinophils (auto) 0.2 10^3/ul 0-0.6 Absolute Lymphocytes (auto) 2.8 10^3/ul 1.0-4.8 Absolute Monocytes (auto) 0.4 10^3/ul 0-0.8 Absolute Neutrophils (auto) 4.9 10^3/ul 1.5-7.7 Alanine Aminotransferase (Alt/SGPT) 17 U/L 7-52 Albumin 4.1 g/dL 3.2-5.2 Albumin/Globulin Ratio 1.4 1-3 Alkaline Phosphatase 56 U/L 34-104 Anion Gap 6 mmol/L 2-11 Aspartate Amino Transf (Ast/Sgot) 19 U/L 13-39 BUN/Creatinine Ratio 9.4 8-20 Basophils (%) (Auto) 0.7 % 0-2 Blood Urea Nitrogen 8 mg/dL 6-24 Calcium Level 9.4 mg/dL 8.6-10.3 Carbon Dioxide Level 24 mmol/L 22-32 Chloride Level 106 mmol/L 101-111 Creatinine 0.85 mg/dL 0.51-0.95 Eosinophils (%) (Auto) 2.3 % 0-6 Estimated GFR () 108.6 Estimated GFR (Non- 84.4 Globulin 3.0 g/dL 2-4 Glucose Level 96 mg/dL 70-100 Hematocrit 35 % 35-47 Hemoglobin 11.4 g/dL Low 12.0-16.0 Lymphocytes (%) (Auto) 33.7 % 25-47 Mean Corpuscular Hemoglobin 29 pg 27-31 Mean Corpuscular Hemoglobin Concent 33 g/dL 31-36 Mean Corpuscular Volume 89 fL 80-97 Mean Platelet Volume 8 um3 7.4-10.4 Monocytes (%) (Auto) 5.3 % 1-9 Neutrophils (%) (Auto) 58.0 % 38-83 Nucleated RBC Absolute Count (auto) 0.01 10^3/ul Nucleated Red Blood Cells % 0.1 Platelet Count 239 10^3/ul 150-450 Potassium Level 3.8 mmol/L 3.5-5.0 Red Blood Count 3.94 10^6/ul Low 4.0-5.4 Red Cell Distribution Width 15 % 10.5-15 Sodium Level 136 mmol/L 133-145 Total Bilirubin 0.20 mg/dL 0.2-1.0 Total Protein 7.1 g/dL 6.4-8.9 White Blood Count 8.4 10^3/ul 3.5-10.8 Laboratory Studies 03/24/2017 N2N/CCD Import Bedside Urine 1.020 1.010- 1.030 Specific Golden (Lab Bedside Urine Urobilinogen (Lab) 0.2 Bedside Urine pH (Lab) 7.0 5-9 Laboratory test 12/08/2013 [facility] Amnisure No Membrane [address] [place] [address] Rupt <SEE [phone] NOTE> Laboratory test 11/05/2013 [facility] Glucose 1 HR 72 mg/dL 70-16 [place] [address] Post Prandial 0 [phone] CBC With No Diff 11/05/2013 [facility] White Blood 8.7 10^3/uL 4.8-1 [place] [address] Count 0.8 [phone] Red Blood Count 3.58 10^6/uL Low 4.0-5.4 Hemoglobin 10.7 g/dL Low 12.0-16.0 Hematocrit 33 % Low 35-47 Mean Corpuscular Volume 92 fL 80-97 Mean Corpuscular Hemoglobin 30 pg 27-31 Mean Corpuscular HGB Conc 33 g/dL 31-36 Red Cell Distribution Width 14 % 10.5-15 Platelet Count 237 10^3/uL 150-450 Mean Platelet Volume 9 um3 7.4-10.4 Laboratory test 10/26/2013 [facility] [facility] No Membrane [address] [place] [address] Rupt <SEE [phone] NOTE> Laboratory test 10/05/2013 [facility] Genital Culture (SEE NOTE ) yeast [address] [place] [address] [phone] Serum 08/17/2013 [facility] Interpretation SEE BELOW 94 Integrated Screen Part 2 UT Risk For Ontd <1:5000 Age Risk Down Syndrome 1:1200 SURYA Down Syndrome Risk <1:5000 <1:270 SURYA Trisomy 18 Risk <1:5000 <1:100 Calculated Gestational Age 16.4 Afp,Serum 47.9 NG/ML Afp Mom 1.15 95 HCG,Serum 11.6 IU/mL HCG Mom 0.47 Estriol,Free 0.48 NG/ML Estriol Mom 0.84 Inhibin A,Dimeric 91 pg/mL Inhibin A Mom 0.54 Ale-A 782 NG/ML Ale-A Mom 0.66 96 Referring Physician Name CORNELIUS WHEELER Referring Physician Referring Physician Npi [id number] Specimen # From Part 1 [id number] Date Of [id number] Collection Date Maternal Weight 160 LBS Est'd Date Of Delivery 01/29/2014 Mother's Ethnic Origin 97 Insulin Depend Diabetic NO Repeat Specimen NO Number Of Fetuses 1 HX Of Neural Tube Defects NO Cystic Fibrosis Carrier (UT) 07/20/2013 [facility] Reported Ethnicity see note 98 CF Result see note 99 Interpretation see note 100 Mutations/Polymorphisms see note 101 Method see note 102 Reviewer see note 103 Serum Integrated SCRN Part 1 UT 07/20/2013 [facility] Comment SEE BELOW 104 Referring Physician Name KRISTA BERNSTEIN Referring Physician Phone [phone] Referring Physician Npi [id number] Date Of 1995 Collection Date 07/20/2013 Maternal Weight 160 LBS Est'd Date Of Delivery 01/29/2014 ELLEN Determined By U Mother's Ethnic Origin 105 Number Of Fetuses 1 Insulin Depend Diabetic NO Repeat Specimen NO HX Of Neural Tube Defects NO Brief History (NTD) N/A Prev Down Synd NO Donor Egg NO Donor Age:Egg Retrieval N/A PNL No 06/01/2013 [facility] Rubella [place] [address] [phone] Hemoglobin A1c 5.5 % Less than 6.0 106 Hepatitis B Surface Antigen Nonreactive Nonreactive 107 GC/Chlamydia Dna 06/01/2013 [facility] GC/Chlamydia (SEE [address] [place] [address] Rna NOTE) [phone] RPR 06/01/2013 [facility] Syphilis [place] [address] [phone] RPR Nonreactive Nonreactive RPR Titer TNP Pediatric/Maternal YES CBC With No 06/01/2013 [facility] White Blood 6.6 10^3/uL 4.8 -10.8 [place] [address] Count [phone] Red Blood Count 3.56 10^6/uL Low 4.0-5.4 Hemoglobin 10.5 g/dL Low 12.0-16.0 Hematocrit 34 % Low 35-47 Mean Corpuscular Volume 95 fL 80-97 Mean Corpuscular Hemoglobin 30 pg 27-31 Mean Corpuscular HGB Conc 31 g/dL 31-36 Red Cell Distribution Width 16 % High 10.5-15 Platelet Count 273 10^3/uL 150-450 Mean Platelet Volume 8 um3 7.4-10.4 Urine Culture And 06/01/2013 [facility] Urine Culture (SEE NOTE ) [address] [place], [place] [id number] [phone] Hemoglobin 06/01/2013 [facility] Hemoglobin A2 2.5 % 2.0-3 [place] [address] .3 [phone] Hemoglobin F 0.4 % 0.0-0.9 Hemoglobin A 97.1 % 95.8-98.0 Variant Hemoglobin 0.0 % 110 Hemoglobin Electro Interp See Comment 111 HIV 1/2 AB 06/01/2013 [facility] HIV 1 2 Nonreactive Nonreactive [address] [place] [address] Antibody [phone] Type And 06/01/2013 [facility] [place] [address] Blood Type [phone] Antibody Screen NEGATIVE GC/Chlamydia Dna 04/01/2013 [facility] GC/Chlamydia Rna (SEE NOTE) [address] [place] [address] [phone] Laboratory test 02/25/2013 [facility] Genital Culture (SEE NOTE ) [address] [place] [address] [phone] 1 SEE RESULT BELOW Name: JAYNE SQUIRES : [address]: Una CASH Acct: [id number] Unit: [id number] AGE: 23 Location: [facility] Re07/31/18 SEX: F Status: REG REF SPEC: [id number] [place]: 07/31/18-[address] [facility] [address]: Una CASH REQ: [id number] RECD: 07/31/18 STATUS: COMP _ SOURCE: VAGINAL SPDESC: ORDERED: Gladys,Yeast DNA, Trich DNA COMMENTS: [id number] Would you like to order Trichomonas Vaginalis testing? Y Procedure Result Reported Site Gardnerella/Yeast: Vaginal DNA Final 08/01/18956 ML Organism 1 Negative Gardnerella Organism 2 Negative Ana The presence of G. vaginalis, although suggestive, is not diagnostic for bacterial vaginosis. Results should be interpreted in conjuction with other clinical and laboratory data available. Women with vaginal discharge should be evaluated for risk factors of cervicitis and pelvic inflammatory disease, toxic shock syndrome (S.aureus), and if present, evaluated for organisms not included in this assay such as N. gonorrhoeae, C. trachomatis, Mobiluncus, Mycoplasma and/or Prevotella. Mixed infections may occur. The performance of this test on patient specimens collected during or immediately after antimicrobial therapy is unknown. The presence or absence of Ana species, or G. vaginalis cannot be used as a test for therapeutic success or failure. Trichomonas: Vaginal DNA Probe Final 08/01/18956 ML Organism 1 Negative Trichomonas CONTINUED ON NEXT PAGE DEPARTMENT OF PATHOLOGY, [address] [place] [address] Abraham Allen M.D. Director JULI # [id number] Patient: JAYNE SQUIRES [id number] (Continued) Specimen: [id number] Collected: 07/31/18 Received: 07/31/18 (Continued) Procedure Result Reported Site Trichomonas: Vaginal DNA Probe Final (continued) 08/01/18956 The presence or absence of T. vaginalis cannot be used as a test for therapeutic success or failure. * ML - Main Lab . END OF REPORT DEPARTMENT OF PATHOLOGY, [address] [place] [address] Abraham Allen M.D. Director [facility] # [id number] 2 A NEGATIVE results indicates there is no evidence of membrane rupture. 3 Would you like to order Trichomonas Vaginalis RNA testing? N 4 SEE RESULT BELOW Name: JAYNE SQUIRES : [address]: Trina Carlin CNM Acct: [id number] Unit: [id number] AGE: 23 Location: [facility] Re07/05/18 SEX: F Status: DEP REF SPEC: [id number] [place]: 07/05/[address] [facility] [address]: Trina Carlin CNM REQ: [id number] RECD: 07/05/18 STATUS: JUAN WHYTE DR: Mary Lou Mcmahan MD _ SOURCE: VAGINAL SPDESC: ORDERED: Gladys,Yeast DNA COMMENTS: Would you like to order Trichomonas Vaginalis RNA testing? N Procedure Result Reported Site Gardnerella/Yeast: Vaginal DNA Final 07/05/18- 09 ML Organism 1 POSITIVE ANA Organism 2 POSITIVE GARDNERELLA The presence of G. vaginalis, although suggestive, is not diagnostic for bacterial vaginosis. Results should be interpreted in conjuction with other clinical and laboratory data available. Women with vaginal discharge should be evaluated for risk factors of cervicitis and pelvic inflammatory disease, toxic shock syndrome (S.aureus), and if present, evaluated for organisms not included in this assay such as N. gonorrhoeae, C. trachomatis, Mobiluncus, Mycoplasma and/or Prevotella. Mixed infections may occur. The performance of this test on patient specimens collected during or immediately after antimicrobial therapy is unknown. The presence or absence of Ana species, or G. vaginalis cannot be used as a test for therapeutic success or failure. * ML - Main Lab . END OF REPORT DEPARTMENT OF PATHOLOGY, [address] [place] [address] Abraham Allen M.D. Director JULI # [id number] 5 SEE RESULT BELOW Name: JAYNE SQUIRES : [address]: Trina Carlin [facility] Acct: [id number] Unit: [id number] AGE: 23 Location: [facility] Re07/05/18 SEX: F Status: DEP REF SPEC: [id number] [place]: 07/05/[address]: Trina Carlin CNM REQ: [id number] RECD: 07/05/18 STATUS: JUAN WHYTE DR: Mary Lou Mcmahan MD _ SOURCE: URINE SPDESC: ORDERED: Urine Culture Procedure Result Reported Site Urine Culture Final 07/06/18- 815 ML No growth of clinically significant organisms * - Main Lab . END OF REPORT DEPARTMENT OF PATHOLOGY, [address] [place] [address] Abraham Allen M.D. Director [facility] # [id number] 6 A NEGATIVE results indicates there is no evidence of membrane rupture. 7 SEE RESULT BELOW Name: JAYNE SQUIRES : [address]: Una Olvera [facility] Acct: [id number] Unit: [id number] AGE: 23 Location: [facility] Re06/26/18 SEX: F Status: REG REF SPEC: [id number] [place]: 06/26/18-[address] [facility] [address]: Una Olvera [facility] REQ: [id number] RECD: 06/26/186860 STATUS: COMP _ SOURCE: DAYO/VAG/RE SPDESC: ORDERED: Grp B Strp Scrn COMMENTS: [id number] QUERIES: Is Patient Penicillin Allergic? Y Is patient penicillin allergic and/or sensitivities needed? Y Provider Requisition # C77#[id number]_ Procedure Result Reported Site Group B Strep Culture Screen Final 06/29/18- 1403 ML Group B Strep Screen Negative * ML - [facility] . END OF REPORT DEPARTMENT OF PATHOLOGY, [address] [place] [address] bAraham Allen M.D. Director [facility] # [id number] 8 SEE RESULT BELOW Name: JAYNE SQUIRES : [address]: Lisa Wheeler CNM Acct: [id number] Unit: [id number] AGE: 23 [facility] SEX: F Status: DEP REF SPEC: [id number] [place]: 05/19/18-[address] [facility] [address]: Lisa Wheeler [facility] REQ: [id number] RECD: 05/19/18 STATUS: JUAN WHYTE DR: Maicol Pedro MD _ SOURCE: URINE SPDESC: ORDERED: Urine Culture Procedure Result Reported Site Urine Culture Final 05/20/18- 1220 ML No growth of clinically significant organisms * ML - Main Lab . END OF REPORT DEPARTMENT OF PATHOLOGY, [address] [place] [address] Abraham Allen M.D. Director [facility] # [id number] 9 10 P 11 P 12 P 13 P 14 P 15 P 16 P 17 P 18 P 19 P 20 P 21 P 22 P 23 P 24 P 25 P 26 P 27 P 28 P 29 P 30 P 31 P 32 SEE RESULT BELOW Name: JAYNE SQUIRES : [address]: Lisa Wheeler CNM Acct: [id number] Unit: [id number] AGE: 23 Location: [facility] Re05/05/18 SEX: F Status: REG REF SPEC: [id number] [place]: 05/05/18-[address] [facility] [address]: Lisa Wheeler CNM REQ: [id number] RECD: 05/05/18418 STATUS: SOUT _ ORDERED: TP IMAGE ANALYS COMMENTS: [id number] Negative for Intraepithelial lesion or Malignancy A. Ectocervical/Endocervical Specimen Adequacy: Satisfactory of evaluation Transformation zone component identified Patient Information: HPV: Thin Layer Pap Test w/reflex to high risk HPV RNA testing when ASCUS Actual Specimen Date: 05/05/18 Last Menstrual Date: 10/13/17 Spec Date if unknown: unknown ?: Y Post Menopausal?: N Hysterectomy?: N Previous Abnormal Pap Smears?:N Signed by and Reported on: EduarJUAN MIGUEL Arvizu (ASCP) 1034 This Pap test was evaluated with the assistance of the [employer] Test Imaging System. Due to cytologic findings at the nipple threader microscope, comprehensive manual rescreening by a Skilled Nursing Facilities Professional may be required. The Pap Smear is a screening test designed to aid in the detection of premalignant and malignant conditions of the uterine cervix. It is not a diagnostic procedure and should not be used as the sole means of detecting cervical cancer. Both false- positive and false- negative reports do occur. Depending on your risk status, a Pap smear should be obtained and evaluated every 1-3 years. END OF REPORT DEPARTMENT OF PATHOLOGY, [address] [place] [address] Abraham Allen M.D. Director JULI # [id number] 33 REFERENCE VALUE Cutoff: 500 34 REFERENCE VALUE Cutoff: 200 35 REFERENCE VALUE Cutoff: 100 36 REFERENCE VALUE Cutoff: 150 37 ADDITIONAL INFORMATION This report is intended for use in clinical monitoring or management of patients. It is not intended for use in employment-related testing. 38 REFERENCE VALUE Cutoff: 200 mg/L 39 Tylenol 3 40 Metabolite of codeine REFERENCE VALUE Cutoff: 100 41 Yanira Wall, MS Contin; Also a minor metabolite (10%) of codeine and can be seen in low concentrations (<2,000 ng/mL) with poppy seed ingestion. 42 Metabolite of morphine REFERENCE VALUE Cutoff: 100 43 Metabolite of heroin 44 Lortab, Barre, Vicodin; Also a very minor metabolite of codeine and impurity (<1%) of oxycodone. 45 Metabolite of hydrocodone 46 Metabolite of hydrocodone 47 Dilaudid, Exalgo; Also a metabolite of hydrocodone and a minor (<5%) metabolite of morphine. 48 Metabolite of hydromorphone REFERENCE VALUE Cutoff: 100 49 Endocet, Percocet, Oxycontin 50 Metabolite of oxycodone 51 Numorphan, Opana; Also a metabolite of oxycodone. 52 Metabolite of oxymorphone REFERENCE VALUE Cutoff: 100 53 Metabolite of oxymorphone 54 Actiq, Duragesic, Fentora 55 Metabolite of fentanyl 56 Demerol 57 Metabolite of meperidine 58 Narcan 59 Metabolite of naloxone REFERENCE VALUE Cutoff: 100 60 Dolophine 61 Metabolite of methadone 62 Darvon, Darvocet 63 Metabolite of propoxyphene 64 Tradol, Ultram, Ultracet 65 Metabolite of tramadol 66 Nucynta 67 Metabolite of tapentadol 68 Metabolite of tapentadol REFERENCE VALUE Cutoff: 100 69 Buprenex, Suboxone 70 Metabolite of buprenorphine 71 Metabolite of buprenorphine 72 No opioids were detected. The absence of expected drug(s) and/or drug metabolite(s) may indicate non-compliance, altered pharmacokinetics, inappropriate timing of specimen collection relative to drug administration, diluted/adulterated urine, or limitations of testing. ADDITIONAL INFORMATION This test was developed and its performance characteristics determined by [facility] in a manner consistent with CLIA requirements. This test has not been cleared or approved by the U.S. Food and Drug Administration. Test Performed by: [facility] [employer] [facility] [employer] [address] [place] [phone] RESULT: Results suggest past infection. ADDITIONAL INFORMATION This test has been modified from the back tufter's instructions. Its performance characteristics were determined by [facility] in a manner consistent with CLIA requirements. This test has not been cleared or approved by the U.S. Food and Drug Administration. Test Performed by: [facility] [employer] [facility] [employer] [address] [place] [phone] 74 REFERENCE VALUE Vaccinated: Positive (>=1.1 AI) Unvaccinated: Negative (<=0.8 AI) 75 Test Performed by: [facility] [address] [place] [address] 76 *Ascorbic acid is present which may interfere with detection of blood. 77 SEE RESULT BELOW Name: JAYNE SQUIRES : [address]: Nain Arrieta CNM Acct: [id number] Unit: [id number] AGE: 23 Location: [facility] Re03/30/18 SEX: F Status: DEP REF SPEC: [id number] [place]: 03/30/[address] [facility] [address]: Nain CASH REQ: [id number] RECD: 03/30/18 STATUS: JUAN WHYTE DR: Maicol Pedro MD _ SOURCE: URINE SPDESC: ORDERED: Urine Culture Procedure Result Reported Site Urine Culture Final 04/01/18- 0830 ML No Growth (<1,000 CFU/mL) * ML - Main Lab . END OF REPORT DEPARTMENT OF PATHOLOGY, [address] [place] [address] Abraham Allen M.D. Director [facility] # [id number] 78 SEE RESULT BELOW Name: JAYNE SQUIRES : [address]: Lisa Wheeler CNM Acct: [id number] Unit: [id number] AGE: 23 Location: [facility] Re03/11/18 SEX: F Status: REG REF SPEC: [id number] [place]A: 03/11/18-[address]: Lisa Wheeler [facility] REQ: [id number] RECD: 03/12/18 STATUS: COMP _ SOURCE: URINE SPDESC: ORDERED: Urine Culture COMMENTS: [id number] Procedure Result Reported Site Urine Culture Final 03/13/18- 1302 ML No Growth (<1,000 CFU/mL) * ML - Main Lab . END OF REPORT DEPARTMENT OF PATHOLOGY, [address] [place] [address] Abraham Allen M.D. Director [facility] # [id number] 79 SEE RESULT BELOW Name: JAYNE SQUIRES : [address]: Una Olvera [facility] Acct: [id number] Unit: [id number] AGE: 22 Location: [facility] Re01/27/18 SEX: F Status: REG REF SPEC: [id number] [place]: 01/27/18-[address]: Una Olvera [facility] REQ: [id number] RECD: 01/27/18 STATUS: COMP _ SOURCE: URINE SPDESC: ORDERED: Urine Culture COMMENTS: [id number] Urine Source: Random Procedure Result Reported Site Urine Culture Final 01/29/18- 0945 ML No growth of clinically significant organisms * ML - Main Lab . END OF REPORT DEPARTMENT OF PATHOLOGY, [address] [place] [address] Abraham Allen M.D. Director [facility] # [id number] 80 SCREEN NEGATIVE FOR OPEN NTD, DS AND TRISOMY 18. 81 LESS THAN 1:5000 82 LESS THAN 1:5000 83 LESS THAN 1:5000 84 ADJUSTED AFP MOM INTERPRETIVE CUTOFFS: <2.50 ADJUSTED MOM <1.90 ADJUSTED MOM FOR INSULIN-DEPENDENT DIABETES <4.00 ADJUSTED MOM FOR TWINS <3.50 ADJUSTED MOM FOR TWINS INSULIN-DEPENDENT DIABETES <4.50 ADJUSTED MOM FOR TRIPLETS <4.00 ADJUSTED MOM FOR TRIPLETS INSULIN-DEPENDENT DIABETES 85 PERFORMANCE OF MATERNAL SERUM AFP, HCG, ESTRIOL, AND DIMERIC INHIBIN A PROVIDES A USEFUL SCREENING TEST FOR DETECTION OF OPEN NEURAL TUBE DEFECTS AND SOME CHROMOSOMAL ABNORMALITIES. IT SHOULD BE NOTED THAT NORMAL RESULTS CAN NEVER GUARANTEE THE OF A NORMAL BABY AND THAT 2 TO 3 PERCENT OF [place]BORNS HAVE SOME TYPE OF PHYSICAL OR MENTAL DEFECT, MANY OF WHICH ARE UNDETECTABLE THROUGH ANY KNOWN DIAGNOSTIC TECHNIQUE. THIS IS A SCREENING TEST, NOT A DIAGNOSTIC TEST. THIS RISK ASSESSMENT REPORT IS BASED IN PART ON DEMOGRAPHIC DATA PROVIDED BY THE ORDERING PHYSICIAN. PLEASE NOTIFY THE LAB PROMPTLY IF ANY DATA IS INCORRECT. FOR ASSISTANCE WITH RECALCULATIONS, PLEASE CALL YOUR LOCAL [facility] AT . FOR ASSISTANCE WITH INTERPRETATION OF THESE RESULTS, PLEASE CALL [phone]. 86 =B 87 --- Reviewed by: Rene Giordano MD 88 <5.0 Negative 5.0 - 25.0 Indeterminate (Repeat testing recommended after 72 hours) >25.0 Positive Perimenopausal women can display HCG levels of up to 20 mIU/mL 89 <5.0 Negative 5.0 - 25.0 Indeterminate (Repeat testing recommended after 72 hours) >25.0 Positive Perimenopausal women can display HCG levels of up to 20 mIU/mL 90 SEE RESULT BELOW Name: JAYNE SQUIRES : [address]: Lovely Saeed Acct: [id number] Unit: [id number] AGE: 22 Location: [facility] Re08/12/17 SEX: F Status: REG REF SPEC: [id number] [place]: 08/12/17-[address]: Lovely Saeed REQ: [id number] RECD: 08/13/17-1214 STATUS: COMP _ SOURCE: VAGINAL SPDESC: ORDERED: Genital Culture COMMENTS: [id number] Procedure Result Reported Site Genital Culture Final 08/15/17- 1133 ML Organism 1 STREP GROUP B Quantity 3+ Organism 2 YEAST Quantity 2+ Susceptibility testing of penicillins and other B-lactams approved by FDA for treatment of Streptococcus pyogenes (Group A Strep) and Streptococcus agalactiae (Group B Strep) is not necessary for clinical purposes and need not be done routinely, since as with vancomycin, resistant strains have not been recognized. (CLSI K354-L18;p.66) Positive isolates will be saved for one week. Please call the Microbiology Laboratory if further susceptibility testing is needed. * ML - MAIN LAB ([facility]) . END OF REPORT * ML=Testing performed at Main Lab DEPARTMENT OF PATHOLOGY, [facility] [employer] [place], [place] [address] Abraham Allen M.D. Director [facility] # [id number] 91 No Membrane Rupture 92 No Membrane Rupture 93 RUN DATE: 10/07/13 [facility] LAB LIVE PAGE 1 RUN TIME: [address] [place] [address] Specimen Inquiry Name: KIYA SQUIRESYA : [address]: Lovely Maradiaga CNP Acct: [id number] Unit: [id number] AGE: 18 Location: [facility] Re10/05/13 SEX: F Status: REG REF SPEC: [id number] [place]: 10/05/13-[address]: Lovely Maradiaga CNP REQ: [id number] RECD: 10/05/13 STATUS: COMP _ SOURCE: CERVIX SPDESC: ORDERED: Genital Culture QUERIES: [employer] Number [id number] Procedure Result Verified Site Genital Culture Final 10/07/13- 1154 ML Organism 1 YEAST Quantity 1+ Organism 2 NORMAL MALIHA Quantity 2+ END OF REPORT * ML=Testing performed at Main Lab DEPARTMENT OF PATHOLOGY, [address], [place], [place] [address] Abraham Allen M.D. Director [facility] Permit #[id number] 94 SCREEN NEGATIVE FOR OPEN NTD, DOWN SYNDROME AND TRISOMY 18. 95 Reference Range: <2.50 IDD <1.90 TWINS <4.00 TWINS IDD <3.50 TRIPLETS <4.50 96 The Serum Integrated Screen combines ALE-A in the first trimester with AFP, unconjugated estriol, intact hCG and Inhibin A in the second trimester. This provides a useful screening test for detection of open neural tube defects, Down syndrome and Trisomy 18. It should be noted that normal results can never guarantee the of a normal baby and that 2 to 3 percent of newborns have some type of physical or mental defect, many of which are undetectable through any known diagnostic technique. Interpretation reviewed by: Noé Celeste, Ph.D., [facility] This is a screening test, not a diagnostic test. This risk assessment is based on demographic data provided by the ordering physician. Please notify the laboratory promptly if any data are incorrect. If you have questions concerning this report: For clinical consultation, call ; For technical questions, call ext [phone]; For recalculations, fax to . This test was developed and its performance characteristics have been determined by [facility]. Performance characteristics refer to the analytical performance of the test. 97 98 99 NEGATIVE; NONE OF THE MUTATIONS LISTED BELOW WERE DETECTED 10 This result does not rule out the presence of a 0 mutation or a diagnosis of cystic fibrosis disease (CF).* The risk for mutations that cause CF other than the ones tested depends greatly on family history, clinical presentation, and ethnicity. Chance of Having a CF Mutation Ethnic Group Detection Before After Negative Rate Test Result [employer]azi [employer] 94% 1 in 24 1 in 400 Non- 88% 1 in 25 1 in 208 -[place]amo[place] 72% 1 in 46 1 in 164 -[place]amo[place] 65% 1 in 65 1 in 186 -[place]amo[place] 49% 1 in 94 1 in 184 Other insufficient data available For assistance with interpretation of these results, please contact your local [facility]' genetic counselor or call [facility] [employer] ([phone]). 10 G85E (c.254 G>A) 3120+1 G>A(c.2988+1G>A) 1 R334W (c.1000 C>T) 394delTT (c.262_263delTT) V520F (c.1558 G>T) 1717-1 G>A(c.1585-1 G>A) R553X (c.1657 C>T) 1898+1 G>A(c.1766+1 G>A) R4399K(c.3846 G>A) 3659delC (c.3437delC) R347H (c.1040 G>A) 621+1 G>T (c.489+1 G>T) R560T (c.1679 G>C) 3905insT (c.3773_3774insT) L6806N(c.3484 C>T) 2183AA>G (c.2051_2052delAAinsG) A0057T(c.3909 C>G) 711+1 G>T (c.579+1 G>T) R117H (c.350 G>A) P067aro (c.1519_1521delATC) R347P (c.1040 G>T) 2184delA (c.2052delA) G542X (c.1624 G>T) 3876delA (c.3744delA) A455E (c.1364 C>A) 1078delT (c.948delT) S549N (c.1647 G>A) Q185kvn (c.1521_1523delCTT) S549R (c.1646 A>C) 2789+5 G>A(c.2657+5 G>A) G551D (c.1652 G>A) 3849+10kb C>T (c.8181-3724 C>T) This assay detects thirty-two mutations, including the twenty-three core mutations recommended by the [place] [employer] (ACMG) and the [place] [employer] (ACOG) for population-based CF carrier screening. Testing for the intron 8 5T polymorphism is performed only when the R117H mutation is detected. Testing for the I506V and I507V polymorphisms is performed only when a homozygous Delta F508 or Delta I507 mutation is detected. In addition to the ACMG/ACOG panel, this assay detects nine additional mutations. While these mutations are rare in the [place] population, the scientific and medical literature indicates that these mutations are not benign polymorphisms. 10 The mutations listed above are detected by an 2 oligonucleotide ligation assay (ISHMAEL) after multiplex- polymerase chain reaction (PCR) amplification of specific CF gene regions. Fluorescent allele-specific reaction products are detected by capillary electrophoresis. Since genetic variation and other factors can affect the accuracy of direct mutation testing, the results of this testing should always be interpreted in light of clinical and familial data. 10 Sirisha Carreon, Ph.D.,[facility] 3 Director, Molecular Genetics The performance characteristics of this assay have been determined by [employer]. Performance characteristics refer to the analytical performance of the test. For more information on this test, go to [email or web address]/faq/cfscreen 10 Thank you for submitting this patients Part 1 specimen. 4 Please submit her Part 2 specimen between 08/07/2013-10/01/2013 (15.0 and 22.9 weeks gestation) with 08/07/2013-08/20/2013 (15.0 and 16.9 weeks gestation) being optimal. When submitting Part 2, please include the following Specimen # from Part 1: [id number] If you have questions concerning this report: For clinical consultation, call ; For technical questions, call ext [phone]; For recalculations, fax to . This test was developed and its performance characteristics have been determined by [employer] [place], [place]. Performance characteristics refer to the analytical performance of the test. 10 5 10 Therapeutic target for the treatment of diabetes 6 Mellitus patients is <7% HBA1C, and in selective patients <6.0%.Please refer to [place] [employer] Diabetic care guidelines for further information. 10 YES 7 10 RUN DATE: 06/05/13 [facility] LAB LIVE PAGE 1 8 RUN TIME: [address], [place] [address] Specimen Inquiry Name: JAYNE SQUIRES : [address]: Krista Bernstein NP Acct: [id number] Unit: [id number] AGE: 18 Location: [facility] Re06/01/13 SEX: F Status: REG REF SPEC: [id number] GEORGINA: 06/01/[address]: Krista Bernstein NP REQ: [id number] RECD: 06/02/13 STATUS: COMP _ SOURCE: ENDOCERVIX SPDESC: ORDERED: NICK/Ramakrishna RNA QUERIES: Medent Number [id number] Procedure Result Verified Site Chlamydia Trachomatis RNA Final 06/05/13- 1334 ML NEGATIVE for Chlamydia trachomatis rRNA GC (N. gonorrhoeae) RNA Final 06/05/13- 1334 ML NEGATIVE for Neisseria gonorrhoeae rRNA A negative result does not preclude the presence of a C. trachomatis or N. gonorrhoeae infection because results are dependent on adequate specimen collection, absence of inhibitors, and sufficient rRNA to be detected. Test results may be affected by improper specimen collection, improper storage, technical error, or specimen mixup. Limitations of the Procedure: The Aptima Combo 2 Assay is not intended for the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
== END 2019-07-02 20:30 | disposition home or self-care (01) ==
LOC: ED 17:56
DX: O20.9 Hemorrhage in early pregnancy, unspecified (principal); O99.011 Anemia complicating pregnancy, first trimester; D64.9 Anemia, unspecified; Z3A.09 9 weeks gestation of pregnancy; Z88.0 Allergy status to penicillin; Z88.2 Allergy status to sulfonamides; Z88.1 Allergy status to other antibiotic agents; Z91.040 Latex allergy status
CPT/HCPCS: 36415; 76817; 80053; 83605; 85025; 86850; 86900; 86901; 99282; A9270-GY

== ENCOUNTER 2019-10-30 18:48 | Emergency (ER) | payer MEDICAID, OTHER ==
--- NOTE | 2019-10-30 19:20 | ED ---
Dizziness - HPI Summary HPI Summary: Patient is a 24 y/o F who is 27 weeks presenting to [facility] with chief complaint of dizziness. 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 Patient was conducting a transaction when dizziness onset. Dizziness is characterized as a room-spinning sensation. Dizziness has been intermittent since onset, patient reports three discrete episodes. Episodes last around 5-10 minutes. She also claims that she experiences difficulty speaking during these episodes. Patient states that her memory of the incident is "spacey". She states that dizziness is not currently present but does report that she has a RICKS currently. On triage, pain is rated 10 /10. She notes that she felt somewhat fatigued before work but states that she felt "fine" overall. She has eaten lunch and dinner. She denies fall, head injury, syncope, LOC. Standing up aggravates dizziness. PMHx is denied, she reports no Hx of seizures, migraines, strokes, concussions. Home medications and allergies are reviewed. - History Of Current Complaint Chief Complaint: EDSyncope Stated Complaint: 27 WKS PREG/SYNCOPE/HEADACHE PER PT Time Seen by Provider: 10/30/19 19:07 Hx Obtained From: Patient Onset/Duration: Resolved - dizziness is currently not present Timing: Intermittent Episode Lasting Character: Room Spinning, Dizzy Aggravating Factor(s): Supine To Erect Associated Signs And Symptoms: Positive: Other: - positive - dizziness, difficulty speaking, difficulty with memory, RICKS; negative - fall, head injury, syncope, LOC - Allergies/Home Medications Allergies/Adverse Reactions: Allergies Allergy/AdvReac Type Severity Reaction Status Date / Time latex Allergy Mild Hives Verified 10/30/19 19:00 Penicillins Allergy Rash Verified 10/30/19 19:00 sulfamethoxazole Allergy Vomiting Verified 10/30/19 19:00 [From Bactrim] trimethoprim [From Bactrim] Allergy Vomiting Verified 10/30/19 19:00 PMH/Surg Hx/FS Hx/Imm Hx Endocrine/Hematology History: Reports: Hx Anemia - CAN'T TAKE IRON IT IRRITATES HER STOMACH Denies: Hx Diabetes, Hx Thyroid Disease Cardiovascular History: Denies: Hx Congestive Heart Failure, Hx Hypertension, Hx Pacemaker/ICD Respiratory History: Reports: Hx Asthma Denies: Hx Chronic Obstructive Pulmonary Disease (COPD) GI History: Reports: Hx Gastroesophageal Reflux Disease, Other GI Disorders - CHRONIC ABD PAIN AND BLOOD IN STOOLS X 3 MO Denies: Hx Ulcer History: Reports: Hx Kidney Infection, Other Problems/Disorders - UTIs Denies: Hx Renal Disease Musculoskeletal History: Reports: Hx Tendonitis - KIRSTEN CARPAL TUNNEL Sensory History: Denies: Hx Contacts or Glasses, Hx Hearing Aid Opthamlomology History: Denies: Hx Contacts or Glasses Neurological History: Denies: Hx CVA, Hx Migraine, Hx Seizures Psychiatric History: Reports: Hx Depression - [place] W/O MEDS Denies: Hx Panic Disorder - Surgical History Surgery Procedure, Year, and Place: tonsillectomy. ear tubes 07/18/16 Hx Anesthesia Reactions: No - Immunization History Date of Tetanus Vaccine: Unknown Date of Influenza Vaccine: None Infectious Disease History: No Infectious Disease History: Denies: Hx Clostridium Difficile, Hx Hepatitis, Hx Human Immunodeficiency Virus (HIV), Hx of Known/Suspected MRSA, Hx Shingles, Hx Tuberculosis, Hx Known/ Suspected VRE, Hx Known/Suspected VRSA, History Other Infectious Disease, Traveled Outside the [place] in Last 30 Days - Family History Known Family History: Positive: Cardiac Disease, Hypertension, Diabetes, Other - cancer - Social History Alcohol Use: None Hx Substance Use: No Substance Use Type: Reports: None Hx Tobacco Use: No Smoking Status (MU): Never Smoked Tobacco Have You Smoked in the Last Year: No Review of Systems Musculoskeletal: Other - negative - fall, head injury Neurological: Other - positive - dizziness, difficulty speaking, difficulty with memory; negative - LOC Positive: Headache. Negative: Syncope All Other Systems Reviewed And Are Negative: Yes Physical Exam - Summary Physical Exam Summary: Appearance: Well-appearing, Well-nourished, lying in bed comfortably Skin: Warm, dry, no obvious rash Eyes: sclera anicteric, no conjunctival pallor ENT: mucous membranes moist, pharynx appears normal Neck: Supple, nontender Respiratory: Clear to auscultation, no signs of respiratory distress Cardiovascular: Normal S1, S2. No murmurs. Normal distal pulses in tibial and radial bilaterally. Abdomen: Soft, nontender, normal active bowel sounds present Musculoskeletal: Normal, Strength/ROM Intact Neurological: A&Ox3, awake and alert, mentation is normal, speech is fluent and appropriate, Level of consciousness nml. The patient is alert and oriented. Cranial nerves are grossly intact. Gaze is conjugate and without nystagmus. There are no gross sensory abnormalities to light touch. There is no truncal or fine motor ataxia. Gait is normal. Unable to do Rhomberg as she became symptomatic when she stood up. However, she was able to stand unaided. Psychiatric: affect is normal, does not appear anxious or depressed Triage Information Reviewed: Yes Vital Signs On Initial Exam: Initial Vitals Temp Pulse Resp BP Pulse Ox 99.0 F 96 20 108/67 99 10/30/19 18:57 10/30/19 18:57 10/30/19 18:57 10/30/19 18:57 10/30/19 18:57 Vital Signs Reviewed: Yes Procedures - Sedation Patient Received Moderate/Deep Sedation with Procedure: No Diagnostics - Vital Signs Vital Signs Temp Pulse Resp BP Pulse Ox 10/30/19 18:57 99.0 F 96 20 108/67 99 - Laboratory Result Diagrams: 10/30/19 19:42 10/30/19 19:42 Lab Statement: Any lab studies that have been ordered have been reviewed, and results considered in the medical decision making process. - EKG 1923 Summary of EKG Findings: NSR at 93 BPM, P waves, QRS complex, and T waves are within normal limits, T waves and intervals are normal, no ischemic changes, no. STEMI. This is a normal EKG. This EKG was reviewed and interpreted by ED physician. Dizzy Course/Dx - Course Course Of Treatment: Patient is a 24 y/o F who is 27 weeks presenting to [facility] with chief complaint of dizziness. 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 Patient was conducting a transaction when dizziness onset. Dizziness is characterized as a room-spinning sensation. Dizziness has been intermittent since onset, patient reports three discrete episodes. Episodes last around 5-10 minutes. She also claims that she experiences difficulty speaking during these episodes. Patient states that her memory of the incident is "spacey". She states that dizziness is not currently present but does report that she has a RICKS currently. Neurological: A&Ox3, awake and alert, mentation is normal, speech is fluent and appropriate, Level of consciousness nml. The patient is alert and oriented. Cranial nerves are grossly intact. Gaze is conjugate and without nystagmus. There are no gross sensory abnormalities to light touch. There is no truncal or fine motor ataxia. Gait is normal. Unable to do Rhomberg as she became symptomatic when she stood up. However, she was able to stand unaided. EKG showed NSR at 93 BPM, P waves, QRS complex, and T waves are within normal limits , T waves and intervals are normal, no ischemic changes, no STEMI. This is a normal EKG. Bloodwork was obtained and within normal limits with exception of RBC 2.45, Hgb 10.5, Hct 32. UA showed 1+ leukocyte esterase, trace WBC and RBC, present squamous epith cells, and 1+ bacteria. Patient was discharged to home with prescription for Meclizine and PCP follow up. - Diagnoses Provider Diagnoses: Peripheral vertigo Discharge ED - Sign-Out/Discharge Documenting (check all that apply): Patient Departure - discharge - Discharge Plan Condition: Good Disposition: HOME Prescriptions: Meclizine TAB* [Antivert 12.5 TAB*] 25 mg PO TID PRN #20 tab PRN Reason: Dizziness Patient Education Materials: Benign Paroxysmal Positional Vertigo (ED) Referrals: Mary Lou Mcmahan MD [Primary Care Provider] - 1 Week (if not improving) - Billing Disposition and Condition Condition: GOOD Disposition: Home - Attestation Statements Document Initiated by Esha: Yes Documenting Scribe: MADHAV AZUL Provider For Whom Esha is Documenting (Include Credential): JONATHAN ORO MD Scribe Attestation: MADHAV Mcclain, scribed for JONATHAN ORO MD on 10/31/19 at 0355. Scribe Documentation Reviewed: Yes Provider Attestation: The documentation as recorded by the MADHAV mcpherson accurately reflects the service I personally performed and the decisions made by me, JONATHAN ORO MD Status of Scribe Document: Viewed
[2019-10-30 19:52] LABS: ABS Eosinophils 0.2 10^3/ul (0-0.6); ABS Monocytes 0.6 10^3/ul (0-0.8); Eosinophil % 2.5 %; Hematocrit 32 % (35-47); Hemoglobin 10.5 g/dL (12.0-16.0); Lymphocyte % 25.8 %; Mean Corpuscular HGB Conc 33 g/dL (31-36); Mean Corpuscular Hemoglobin 31 pg (27-31); Mean Corpuscular Volume 93 fL (80-97); Mean Platelet Volume 7.9 fL (7.4-10.4); Nucleated Red Blood Cells % 0.1; Platelet Count 204 10^3/uL (150-450); Red Blood Count 3.45 10^6 /uL (3.70-4.87); Red Cell Distribution Width 14 % (10-15); White Blood Count 7.8 10^3/uL (3.5-10.8)
[2019-10-30 20:07] LABS: Urine Appearance Cloudy; Urine Bilirubin Negative (Negative); Urine Blood Negative (Negative); Urine Color Yellow; Urine Glucose Negative (Negative); Urine Ketones Negative (Negative); Urine Nitrite Negative (Negative); Urine Protein Negative (Negative); Urine Specific Gravity 1.019 (1.010-1.030); Urine Urobilinogen Negative (Negative)
[2019-10-30 20:08] LABS: Urine Bacteria 1+ (Absent); Urine Red Blood Cell Trace(0-2/hpf) (Absent); Urine Squamous Epithelial Cell Present (Absent); Urine White Blood Cell Trace(0-5/hpf) (Absent)
[2019-10-30 20:09] LABS: Albumin 3.5 g/dL (3.2-5.2); Albumin/Globulin Ratio 1.1 (1-3); BUN/Creatinine Ratio 13.1 (8-20); Calcium 9.2 mg/dL (8.6-10.3); EGFR African American 147.1 (>60); EGFR Non-African American 121.5 (>60); Globulin 3.1 g/dL (2-4); Potassium 3.6 mmol/L (3.5-5.0); Total Bilirubin 0.2 mg/dL (0.2-1.0); Total Protein 6.6 g/dL (6.4-8.9)
[2019-10-30 21:26] VITALS: BP 121/72
== END 2019-10-30 21:24 | disposition home or self-care (01) ==
LOC: ED 18:48
DX: H81.399 Other peripheral vertigo, unspecified ear (principal); D64.9 Anemia, unspecified; J45.909 Unspecified asthma, uncomplicated; K21.9 Gastro-esophageal reflux disease without esophagitis; F32.9 Major depressive disorder, single episode, unspecified; Z88.0 Allergy status to penicillin; Z88.2 Allergy status to sulfonamides; Z88.1 Allergy status to other antibiotic agents; Z91.040 Latex allergy status
CPT/HCPCS: 36415; 80053; 81003; 81015; 85025; 87086; 93005; 99282

== ENCOUNTER 2020-01-27 11:46 | Inpatient (IN) | payer OTHER ==
[2020-01-27] MEDS ORDERED: Buffered Lidocaine 1% SYRIN* 1 ML/SYRINGE INTRADERM ONE (12:46)
[2020-01-27] MEDS ORDERED: Lactated Ringers 1000 ML Bag* 1,000 ML IV ONE ×2 (12:46→15:03)
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
[2020-01-27] MEDS ORDERED: Lactated Ringers 1000 ML Bag* 1,000 ML IV SCH ×3 (13:00→22:00)
[2020-01-27] MEDS ORDERED: OBEPIDURAL* 250 ML EPIDURAL ONE (13:25)
[2020-01-27 13:40] LABS: ABS Lymphocytes 1.8 10^3/ul (1.0-4.8); ABS Monocytes 0.5 10^3/ul (0-0.8); ABS Neutrophils 4.9 10^3/ul (1.5-7.7); Eosinophil % 0.4 %; Hematocrit 31 % (35-47); Hemoglobin 10.3 g/dL (12.0-16.0); Lymphocyte % 24.3 %; Mean Corpuscular HGB Conc 33 g/dL (31-36); Mean Corpuscular Hemoglobin 29 pg (27-31); Mean Corpuscular Volume 88 fL (80-97); Mean Platelet Volume 9.3 fL (7.4-10.4); Platelet Count 166 10^3/uL (150-450); Red Blood Count 3.52 10^6 /uL (3.70-4.87); Red Cell Distribution Width 15 % (10-15); White Blood Count 7.3 10^3/uL (3.5-10.8)
[2020-01-27 13:50] LABS: Urine Benzodiazepine Screen None Detected (None Detect); Urine Opiates Screen None Detected (None Detect)
--- NOTE | 2020-01-27 14:06 | PN ---
Progress Note - Progress Note Date of Service: 01/27/20 Note: Pt decided she would like an epidural Requesting epidural prior to AROM RN to start IV, draw labs Notified anesthesia
[2020-01-27] MEDS ORDERED: Phenylephrine 40 MCG/ML SYRINGE IV PUSH PRN ×2 (15:03)
[2020-01-27] MEDS ORDERED: Sodium Citrate/Citric Acid* 15 ML UDC PO PRN (15:03)
--- NOTE | 2020-01-27 15:59 | PN ---
Progress Note - Progress Note Date of Service: 01/27/20 Note: Epidural placed Pt initially reported comfort with epidural, but reported considerable discomfort with vaginal exam Unable to perform AROM, given pt's discomfort Notified anesthesia. Anesthesia to assess.
[2020-01-27] MEDS ORDERED: Oxytocin in LR* 20 UNITS/1,000 ML BAG IVPB SCH ×2 (16:00→22:00)
[2020-01-27] MEDS ORDERED: OBEPIDURAL* 250 ML EPIDURAL SCH (16:00)
--- NOTE | 2020-01-27 18:07 | PN ---
Progress Note - Progress Note Date of Service: 01/27/20 Note: S: Pt somewhat comfortable with epidural, but not completely. Breathing through contractions. Ready for AROM. O: BP 131/74, HR 90 FHR: 145, moderate variability, no decels Contractions: 2-4 minutes, palpate mild to moderate, good resting tone VE by Jose Luis Perez MD: 4cm/80%/-2, AROM, clear fluid A: 24yo, , IUP@39+4 In early labor No evidence of metabolic acidemia Contractions becoming more regular P: Titrate pitocin as tolerated by mom/baby Anticipate
[2020-01-27] MEDS ORDERED: Bupivacaine 0.25% SDV PF* 10 ML VIAL INJ ONE (19:06)
--- NOTE | 2020-01-27 19:36 | PN ---
Progress Note - Progress Note Date of Service: 01/27/20 Note: S: Little relief with epidural. Breathing through contractions. Feeling the urge to poop. Requesting VE. O: FHR: 145, moderate variability, no decels Contractions: 2-4 minutes, palpate strong, good resting tone VE: 5-6 cm/100%/1, AROM, clear fluid A: 24yo, , IUP@39+4 In active labor No evidence of metabolic acidemia Regular contractions P: Pitocin off per pt request Anticipate
[2020-01-27] MEDS ORDERED: fentaNYL* 50 MCG/ML 2 ML VIAL (100 MCG VIAL) ONE (21:24)
[2020-01-27] MEDS ORDERED: fentaNYL* 50 MCG/ML 2 ML VIAL (100 MCG VIAL) IV SLOW PU ONE (21:46)
[2020-01-27] MEDS ORDERED: Witch Hazel PAD* JAR TOPICAL PRN (21:49)
[2020-01-27] MEDS ORDERED: Glycerin ADULT SUPP PR PRN (21:49)
[2020-01-27] MEDS ORDERED: Dibucaine 1% 28.35 GM TUBE PR PRN (21:49)
[2020-01-27] MEDS: Ibuprofen TAB* 600 MG PO PRN (22:16)
--- NOTE | 2020-01-27 22:50 | PROCNOTE ---
[facility] OB: Delivery Note - Delivery A Date of : 01/27/20 Time of : 20:58 [place] Sex: Male Weight at : 7 lb 3 oz Score 1 Minute: 8 Score 5 Minutes: 9 Gestational Age in Weeks and Days at Delivery: 39 Weeks and 4 Days Delivery Method: Spontaneous Vaginal Labor: Induced Did Patient attempt ?: N/A, No Previous Amniotic Fluid: Clear Estimated Blood Loss: 100 Anesthesia/Analgesia: CEI for Labor Delivered By: Liss Mayers Nursery Level of Nursery: Regular/Bedside - Perineum Perineal Injury: None/Intact - Events Delivery Events of Note: Pitocin During Labor - Additional Delivery Notes Additional Delivery Notes: Pt was an elective IOL at 39+4. Following AROM, pt progressed to complete and complete. Normal spontaneous vertex delivery of live male, 7lbs 3oz and Apgars 8 /9. Delivered left occipital-anterior (PARVEEN). Body delivered without maternal effort. Baby placed on mothers abdomen. Cord clamped and cut by pt's mother after pulsations ceased. Placenta reluctant to detach from uterus. Pt experiencing considerable pain with fundal massage. After 20 mins, Jose Luis Perez was called to assess. After 100mcg of fentanyl, placenta delivered spontaneously via avendaño by LMB, appears intact, 3vc. Pitocin given via IVPB for active management of 3rd stage. Perineum and vagina inspected and noted to be intact. EBL 100mL. Mom and baby stable at time of note.
[2020-01-28] MEDS: diPHENhydraMINE PO* 50 MG PO PRN (00:27)
[2020-01-28] MEDS: Acetaminophen TAB* 325 MG PO PRN (04:35)
[2020-01-28 06:59] LABS: ABS Lymphocytes 1.9 10^3/ul (1.0-4.8); ABS Monocytes 0.8 10^3/ul (0-0.8); ABS Neutrophils 9.2 10^3/ul (1.5-7.7); Eosinophil % 0.3 %; Hematocrit 24 % (35-47); Hemoglobin 7.9 g/dL (12.0-16.0); Lymphocyte % 16.2 %; Mean Corpuscular HGB Conc 32 g/dL (31-36); Mean Corpuscular Hemoglobin 29 pg (27-31); Mean Corpuscular Volume 89 fL (80-97); Mean Platelet Volume 9.8 fL (7.4-10.4); Platelet Count 150 10^3/uL (150-450); Red Blood Count 2.73 10^6 /uL (3.70-4.87); Red Cell Distribution Width 15 % (10-15)
[2020-01-28] MEDS: Ibuprofen TAB* 600 MG PO PRN ×3 (08:04→20:30)
[2020-01-28] MEDS: Ferrous Gluconate TAB* 324 MG TAB PO SCH ×2 (08:04→20:30)
[2020-01-28] MEDS: Docusate CAP* 100 MG PO SCH ×3 (08:04→20:30)
[2020-01-28] MEDS ORDERED: Simethicone TAB* 80 MG TAB.CHEW PO SCH (08:30)
[2020-01-28] MEDS ORDERED: Fluconazole 150 MG TAB PO ONE (17:30)
[2020-01-29] MEDS: diPHENhydraMINE PO* 50 MG PO PRN (00:07)
[2020-01-29] MEDS: Ibuprofen TAB* 600 MG PO PRN ×2 (05:11→12:53)
[2020-01-29 08:04] LABS: ABS Eosinophils 0.2 10^3/ul (0-0.6); ABS Lymphocytes 2.7 10^3/ul (1.0-4.8); ABS Monocytes 0.6 10^3/ul (0-0.8); ABS Neutrophils 4.9 10^3/ul (1.5-7.7); Eosinophil % 2.2 %; Hematocrit 24 % (35-47); Lymphocyte % 32.2 %; Mean Corpuscular HGB Conc 34 g/dL (31-36); Mean Corpuscular Hemoglobin 30 pg (27-31); Mean Corpuscular Volume 89 fL (80-97); Mean Platelet Volume 8.9 fL (7.4-10.4); Nucleated Red Blood Cells % 0.1; Platelet Count 164 10^3/uL (150-450); Red Blood Count 2.66 10^6 /uL (3.70-4.87); Red Cell Distribution Width 15 % (10-15); White Blood Count 8.5 10^3/uL (3.5-10.8)
[2020-01-29] MEDS: Acetaminophen TAB* 325 MG PO PRN (08:20)
[2020-01-29] MEDS: Docusate CAP* 100 MG PO SCH (08:20)
[2020-01-29] MEDS: Ferrous Gluconate TAB* 324 MG TAB PO SCH (08:20)
[2020-01-29 09:45] VITALS: BP 116/84
== END 2020-01-29 12:56 | disposition home or self-care (01) | DRG 560 ==
LOC: MCHOBOUT 11:46 → MCHOB 12:43
PROVIDERS: ADMIT Advanced Practice Midwife; ATTEND Advanced Practice Midwife
PROC: 10E0XZZ Delivery of Products of Conception, External Approach (ICD-10-PCS; principal; 2020-01-27)
PROC: 3E033VJ Introduction of Other Hormone into Peripheral Vein, Percutaneous Approach (ICD-10-PCS; 2020-01-27)
PROC: 10907ZC Drainage of Amniotic Fluid, Therapeutic from Products of Conception, Via Natural or Artificial Opening (ICD-10-PCS; 2020-01-27)
DX: O36.5990 Maternal care for other known or suspected poor fetal growth, unspecified trimester, not applicable or unspecified (principal); O98.52 Other viral diseases complicating childbirth; Z37.0 Single live birth; O99.344 Other mental disorders complicating childbirth; F32.9 Major depressive disorder, single episode, unspecified; O99.52 Diseases of the respiratory system complicating childbirth; J45.909 Unspecified asthma, uncomplicated; B00.9 Herpesviral infection, unspecified; O75.89 Other specified complications of labor and delivery; K21.9 Gastro-esophageal reflux disease without esophagitis; O90.81 Anemia of the puerperium; D64.9 Anemia, unspecified; Z3A.39 39 weeks gestation of pregnancy
CPT/HCPCS: 36415; 80307; 85025; 86850; 86900; 86901; 87480; 87510; 87660; A9270-GY; G0480; J3010; J3490